=== PATIENT | male | born 1940 | race Caucasian/White ===

== ENCOUNTER 2018-02-14 13:17 | Observation (INO) | payer MEDICARE, SELFPAY ==
[2018-02-14] VITALS (13 sets, daily range): BP systolic 92–112; BP diastolic 45–63; PULSE 78–127; RESP 16–21; TEMP 35.9–36.9; O2SAT 98–100; BMI 36.3; BMI 32.8
--- NOTE | 2018-02-14 13:22 | EKG12_ITS ---
Test Reason : DIZZINESS Blood Pressure : / mmHG Vent. Rate : 106 BPM Atrial Rate : 098 BPM P-R Int : 000 ms QRS Dur : 096 ms QT Int : 360 ms P-R-T Axes : 000 -33 041 degrees QTc Int : 478 ms Atrial fibrillation Left axis deviation Abnormal ECG Confirmed by MARCO JENKINS MD ([id number]), newspaper copy editor LORENE LI ([id number]) on 02/16/2018 3:29:58 PM Referred By: ELVIS Confirmed By:MARCO JENKINS MD
--- NOTE | 2018-02-14 13:22 | CT_ITS ---
STUDY: CT BRAIN WITHOUT CONTRAST REASON FOR EXAM: Male, 77 years old. Dizziness, nausea and vomiting RADIATION DOSAGE (If Supplied By Facility): CTDIvol = ( 44.99 ) mGy, DLP = ( 796.11 ) mGycm TECHNIQUE: Transaxial CT imaging of the brain was performed without administration of intravenous contrast material. Individualized dose optimization techniques were used for this CT. COMPARISON: April 19, 2015 CT head FINDINGS: No evidence for shift of midline structures, mass effect or compression of ventricles noted. No acute intra-axial or extra-axial hemorrhage is seen. No abnormal intracranial fluid collections identified. Scattered foci of low-attenuation in the periventricular and subcortical white matter noted which are nonspecific in imaging appearance however likely related with chronic small vessel disease. Intracranial atherosclerotic vascular calcifications are seen. Mild mucosal thickening frontal sinuses. Pneumatization of the petrous apices Posttreatment changes in the right globe present which were not seen on previous exam IMPRESSION: Stable CT examination of the head since prior study. Chronic small vessel disease. Electronically Signed: Marcel Tapia, at 14:16 EDT Tel , Service support , CT/Brain/Head without Contrast
--- NOTE | 2018-02-14 13:22 | RAD_ITS ---
STUDY: X-RAY CHEST REASON FOR EXAM: Male, 77 years old. Cough and dizziness with vomiting TECHNIQUE: Single view of the chest was obtained COMPARISON: November 07, 2014 FINDINGS: Right size is slightly prominent. Tortuosity of the aortic knob. Increased reticular markings in the lung bases. Subsegmental atelectasis in the lung bases also seen. Degenerative changes in the thoracic spine in the glenohumeral joints. No pneumothorax or consolidative process. No pleural effusion. IMPRESSION: Redemonstration of increased reticular markings in the lung bases may relate with interstitial lung disease. Bibasilar subsegmental atelectasis. No pneumothorax or consolidation. Please consider high-resolution chest CT for better assessment interstitial lung disease Electronically Signed: Marcel Tapia, at 14:18 EDT Tel , Service support , RAD/Chest 1 View
--- NOTE | 2018-02-14 13:24 | ED.VISSUMM ---
- ER Visit Summary Date of Service: 02/14/18 Chief Complaint: Dizziness, headache History of Present Illness: The patient is a 77 M medical history significant for prior pulmonary embolus who is on Xarelto and diabetes non-insulin dependent presents to the emergency department with rather sudden onset dizziness, nausea, and vomiting. Patient also complaint of a mild headache. 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 He states that he went to pound a nail into the gait to keep it closed. He states suddenly, he began to feel as if he was going to pass out. He states that he got very nauseated and has had 2 episodes of vomiting. He states he is also had a rather progressive headache. At the same time, he began to have some numbness in his right leg. The patient denies any change in vision. 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 He states he has never really felt like this before. He denies any history of prior stroke. He states he woke this morning, he was in his normal state of health. Physical Examination: NIH equals 1 for right leg numbness. There is no focal weakness that is identified. Patient does have normal extraocular motion of the left eye. 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 Heart is regular tachycardia. Lungs are diminished with an extra Tory wheeze. Abdomen soft, nontender, nondistended. Extremities show trace edema. Test Results: [] Emergency Department Course and Treatment: The patient presents with headache, lightheadedness, near syncope, and leg numbness. With his headache and history of anticoagulant use, I did want to rule out intracerebral hemorrhage. The patient was sent for stat CT. There is no evidence of acute intracerebral hemorrhage. When CT, the patient had one episode of vomiting. This completely resolved his symptoms. He had no progression of his leg numbness. In fact, he had total resolution. The patient did have an EKG which shows atrial fibrillation. He denies any history of this prior. He is fully anticoagulated, but in light of his neurologic symptoms and focal numbness I do feel that he will require further workup. This all may be a vertiginous type presentation with his dizziness, vomiting, and near syncope, but he does have a new dysrhythmia with focal neurologic complaints. The patient was discussed with the hospitalist will be admitted. Treatment Plan: [] Disposition: Admission Impression: 1. New onset atrial fibrillation 2. Right leg paresthesia-resolved This note was generated with [employer] dictation software. It may contain incorrect words, spelling, and punctuation that were not noted in review of the chart prior to signing ED Disposition - Plan for ED Patient: Chief Complaint: Dizziness Referrals: NOT,DEFINED [NON-STAFF] -
[2018-02-14] MEDS: 0.9% Normal Saline 1,000 ML 100 ML IV (13:35)
[2018-02-14 13:36] LABS: Absolute Neutrophil Count 8.3 X10^3/uL (2.0-7.7); Basophil# 0.03 X10^3/uL; Basophil% 0.3 % (0-1); Eosinophil# 0.17 X10^3/uL; Eosinophils% 1.5 % (0-5); Hematocrit 42.4 % (40-54); Hemoglobin 13.7 g/dl (13.0-16.5); Lymphocyte % 18.4 % (19-41); Mean Corp Hgb Conc 32.3 g/gl (32-36); Mean Corpuscular Hgb 28.5 pg (27.0-32.0); Mean Corpuscular Volume 88.3 fL (80-94); Mean Platelet Vol. 10.5 fl (6.2-12.0); Monocyte# 0.83 X10^3/uL; Monocyte% 7.3 % (0-10); Neutrophil # 8.29 X10^3/uL (2.7-7.7); Neutrophil % 72.4 % (47-70); POSITIVE COUNT NO; POSITIVE DIFFERENTIAL NO; POSITIVE MORPHOLOGY NO; Platelet Count 194 K/mm3 (150-450); RBC Distribution Width CV 13.6 % (11.6-14.6); White Blood Count 11.4 K/mm3 (4.4-11.0)
[2018-02-14 13:39] LABS: International Normalized Ratio 1.5; Prothrombin Time (Protime)PT. 17.9 SECONDS (11.7-14.9)
[2018-02-14 13:40] LABS: Partial Thromboplast Time 30.9 Seconds (24.1-36.2)
--- NOTE | 2018-02-14 13:40 | ED.RN ---
Called pharmacy, working on zofran. Kristi called from CT, pt vomitied all over CT.
[2018-02-14 13:51] LABS: AST(SGOT) 15 U/L (15-37); Alanine Aminotransfer ALT/SGPT 13 U/L (16-61); Albumin, Serum 3.9 g/dL (3.2-5.0); Alkaline Phosphatase 62 U/L (45-117); Anion Gap 12 (5-15); BUN 21 mg/dL (7-18); BUN/Creat Ratio 12.8 RATIO (10-20); Bilirubin, Direct 0.24 mg/dL (0.00-0.30); Calcium,Total 8.8 mg/dL (8.5-10.1); Chloride 104 mmol/L (98-107); Creatinine, Serum 1.64 mg/dL (0.70-1.30); EST Glomerular Filtration Rate 44 mL/min (>60); Est Glom Filt Rate - Afr Amer 53 mL/min (>60); Estimated Creatinine Clearance 43.31 ml/min; Globulin 3.3 g/dL (2.2-4.2); Glucose 175 mg/dL (74-106); Potassium 4.1 mmol/L (3.5-5.1); Protein, Total 7.2 g/dL (6.4-8.2); Sodium Level 141 mmol/L (136-145)
[2018-02-14] MEDS: Ondansetron 4 MG/2 ML Vial IV (13:55)
--- NOTE | 2018-02-14 15:04 | PCM.HP.STD ---
Problem List (1) Right leg weakness Status: Acute (2) Afib Status: Acute (3) CKD (chronic kidney disease) Status: Chronic (4) Pulmonary emboli Status: Chronic (5) Chronic acquired lymphedema Status: Chronic (6) Dyslipidemia Status: Chronic (7) Morbid obesity with BMI of 40.0-44.9, adult Status: Chronic (8) Type 2 diabetes mellitus Status: Chronic (9) Benign prostatic hypertrophy Status: Chronic History of Present Illness Date of Admission: 02/14/18 Chief Complaint: nausea. vomint. right leg weakness. 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 Also experienced some right leg numbness the numbness was below his knee into his ankle. Patient never experienced anything like this before. Patient presented to the hospital and while at the hospital was having just vomiting. Patient's dizziness, nausea and numbness have resolved. Patient has not had any symptoms like this before. Evaluation in the emergency room patient was noted to be in atrial fibrillation. Patient has never had atrial fibrillation before. Patient denies any chest pain or palpitations. Patient received saline as well as Zofran in the emergency room. [] Past Medical History Past Medical History (Chronic Problems): Chronic Problems CKD (chronic kidney disease) (Chronic) Pulmonary emboli (Chronic) Chronic acquired lymphedema (Chronic) Dyslipidemia (Chronic) Morbid obesity with BMI of 40.0-44.9, adult (Chronic) Type 2 diabetes mellitus (Chronic) Benign prostatic hypertrophy (Chronic) Allergies No Known Allergies Allergy (Verified 11/07/14 10:51) Home Medications: Ambulatory Orders Medication Instructions Recorded Finasteride [Proscar] 5 mg PO QHS 10/17/14 Lisinopril [Zestril] 10 mg PO DAILY 10/17/14 Saxagliptin Hydrochloride [Onglyza] 5 mg PO DAILY 10/17/14 Simvastatin [Zocor] 10 mg PO QHS 10/17/14 Tamsulosin HCl [Flomax] 0.4 mg PO QHS 10/17/14 Rivaroxaban [Xarelto] 20 mg PO DAILY 30 Days tablet 11/08/14 Furosemide [Lasix] 20 mg PO DAILY 04/19/15 Sertraline HCl [Zoloft] 50 mg PO DAILY 04/19/15 Metformin HCl [Glucophage] 500 mg PO BIDCM #1 tablet 04/20/15 Metoprolol Tartrate [Lopressor 12.5 mg PO BID #30 tablet 04/20/15 (beta carlitos)] [place]-3 Fatty Acids/Fish Oil 50,000 each PO QWEEK 02/14/18 [[place] 3 Fish Oil Softgel] Surgical History: total hip arthroplasty, - Psychiatric History: No pertinent psych hx Lives: Spouse/ Significant Other Smoking Status: Never smoker Tobacco Use: Non-smoker Alcohol: None Drugs: None - *Family History Paternal History Items: Heart Disease Review of Systems Constitutional: Denies: Chills, Fever, Weight Change Eyes: Reports: - - Has a false eye on his right.. Denies: Blurred vision, Double vision HEENT: Denies: Head Aches, Sinus Congestion, Sinus Drainage Cardiovascular: Reports: Edema - Chronic but actually improved from baseline.. Denies: Chest Pain, Palpitations Respiratory: Denies: Cough, Shortness of breath at rest, Sputum production Gastrointestinal: Reports: Nausea, Vomiting. Denies: Abdominal Pain, Diarrhea Genitourinary: Denies: Dysuria Musculoskeletal: Denies: Joint Pain, Joint Tenderness Skin: Reports: - - Chronic venous stasis dermatitis. Neurological: Reports: Numbness - Right leg, - - Dizziness. Psychiatric: Denies: Anxiety, Depression Hematologic/ Lymphatic: Reports: Hx of blood clot. Denies: Easy Bruising, Easy Bleeding VTE Information - Inpt Only VTE Present on Admission: Yes Patient Problems: Active and Suspected Problems Right leg weakness (Acute) Afib (Acute) - Physical Exam General: Alert, Cooperative, No apparent distress HEENT: Atraumatic, EOMI, Normocephalic, - - Pupil reactive to light on the left. Patient has a false eye and his weight. Oral: Moist Mucosa, No Gingival or Mucosal Lesions/ Ulcerations, - - poor dentition only for front teeth on the bottom. Neck: Negative Carotid Bruits, No Nodes, Thyroid Normal Size and Texture Lungs: Clear to auscultation, Normal air movement, No rhonchi, No wheeze Cardiovascular: Regular rate, Regular Rhythm, Normal S1, Normal S2 Abdomen: Bowel Sounds Present, Soft, Non Tender, Non-Distended, No Hepato-splenomegaly Extremities: No edema, No Calf Tenderness Skin: - - Venous stasis dermatitis of lower extremities. Musculoskeletal: No Tenderness to Palpation of Joints or Extremities, No Muscle Wasting Lymphatic: No Cervical, Supraclavicular, or Inguinal Adenopathy, Cervical Adenopathy Neurological: Cranial nerves II-XII grossly intact, Neuro grossly intact, Motor Exam 5/5 strength throughout, Sensory exam intact to light touch and pain, Coordination normal Psych/Mental Status: Normal Affect, Appropriate Vital Signs Temp Pulse Resp BP Pulse Ox 35.9 C L 95 18 101/62 98 02/14/18 14:33 02/14/18 15:02 02/14/18 15:02 02/14/18 15:02 02/14/18 15:02 Oxygen Flow Rate (L/min) 2 Oxygen Delivery Method Nasal Cannula Weight: 125 kg Body Mass Index (BMI) 36.3 Laboratory Tests Past 24 Hrs 02/14/18 02/14/18 02/14/18 13:23 13:23 13:23 WBC 11.4 H RBC 4.80 Hgb 13.7 Hct 42.4 MCV 88.3 MCH 28.5 MCHC 32.3 RDW 13.6 RDW Differential 44.0 H Plt Count 194 MPV 10.5 Immature Gran % (Auto) 0.100 Neut % (Auto) 72.4 H Lymph % (Auto) 18.4 L [place] % (Auto) 7.3 Eos % (Auto) 1.5 Baso % (Auto) 0.3 Absolute Neuts (auto) 8.3 H Absolute Lymphs (auto) 2.10 Total Counted Not Reportable PT 17.9 H INR 1.5 APTT 30.9 Sodium 141 Potassium 4.1 Chloride 104 Carbon Dioxide 25.0 Anion Gap 12 BUN 21 H Creatinine 1.64 H Estim Creat Clear Calc 43.31 Est GFR (MDRD) Af Amer 53 L Est GFR (MDRD) Non-Af 44 L BUN/Creatinine Ratio 12.8 Glucose 175 H Calcium 8.8 Total Bilirubin 0.80 Direct Bilirubin 0.24 AST 15 ALT 13 L Alkaline Phosphatase 62 Troponin I < 0.02 Total Protein 7.2 Albumin 3.9 Globulin 3.3 Clinical Impression(s) from Imaging Studies Brain CT 02/14/18 13:22 Chest X-Ray 02/14/18 13:22 EKG reviewed and showed atrial fibrillation without any acute changes. No prior EKGs available to be compared to. Assessment/Plan Active and Suspected Problems Right leg weakness (Acute) Afib (Acute) 1. Right leg numbness Concern is for a TIA given the patient's new diagnosis of atrial fibrillation. Though patient has been compliant with his Xarelto so theoretically that should have significantly reduce that risk. Continue with the patient Xarelto. Continue with aspirin, patient did take aspirin when this occurred. Patient does not take aspirin routinely. Check fasting lipid panel, MRI of the brain, MRA of the head neck, echocardiogram. Physical and Occupational Therapy. Neurology consultation. 2. Atrial fibrillation New diagnosis but unclear time of onset. 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 It is unclear at this time if the patient has had a Xarelto failure with potential TIA or stroke. Therefore, I would not change anything in regards to that therapy. 4. Chronic kidney disease stage III Continue to monitor. Avoid nephrotoxic agents. Patient on follow-up with nephrology as outpatient. Case discussed with the family at bedside. Code Visit Inpatient E&M: 35575 Init Hosp L3
--- NOTE | 2018-02-14 15:14 | HP.PCM_ITS ---
Problem List (1) Right leg weakness Status: Acute (2) Afib Status: Acute (3) CKD (chronic kidney disease) Status: Chronic (4) Pulmonary emboli Status: Chronic (5) Chronic acquired lymphedema Status: Chronic (6) Dyslipidemia Status: Chronic (7) Morbid obesity with BMI of 40.0-44.9, adult Status: Chronic (8) Type 2 diabetes mellitus Status: Chronic (9) Benign prostatic hypertrophy Status: Chronic History of Present Illness Date of Admission: 02/14/18 Chief Complaint: nausea. vomint. right leg weakness. 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 Also experienced some right leg numbness the numbness was below his knee into his ankle. Patient never experienced anything like this before. Patient presented to the hospital and while at the hospital was having just vomiting. Patient's dizziness, nausea and numbness have resolved. Patient has not had any symptoms like this before. Evaluation in the emergency room patient was noted to be in atrial fibrillation. Patient has never had atrial fibrillation before. Patient denies any chest pain or palpitations. Patient received saline as well as Zofran in the emergency room. [] Past Medical History Past Medical History (Chronic Problems): Chronic Problems CKD (chronic kidney disease) (Chronic) Pulmonary emboli (Chronic) Chronic acquired lymphedema (Chronic) Dyslipidemia (Chronic) Morbid obesity with BMI of 40.0-44.9, adult (Chronic) Type 2 diabetes mellitus (Chronic) Benign prostatic hypertrophy (Chronic) Allergies No Known Allergies Allergy (Verified 11/07/14 10:51) Home Medications: Ambulatory Orders Medication Instructions Recorded Finasteride [Proscar] 5 mg PO QHS 10/17/14 Lisinopril [Zestril] 10 mg PO DAILY 10/17/14 Saxagliptin Hydrochloride [Onglyza] 5 mg PO DAILY 10/17/14 Simvastatin [Zocor] 10 mg PO QHS 10/17/14 Tamsulosin HCl [Flomax] 0.4 mg PO QHS 10/17/14 Rivaroxaban [Xarelto] 20 mg PO DAILY 30 Days tablet 11/08/14 Furosemide [Lasix] 20 mg PO DAILY 04/19/15 Sertraline HCl [Zoloft] 50 mg PO DAILY 04/19/15 Metformin HCl [Glucophage] 500 mg PO BIDCM #1 tablet 04/20/15 Metoprolol Tartrate [Lopressor 12.5 mg PO BID #30 tablet 04/20/15 (beta carlitos)] [place]-3 Fatty Acids/Fish Oil 50,000 each PO QWEEK 02/14/18 [[place] 3 Fish Oil Softgel] Surgical History: total hip arthroplasty, - Psychiatric History: No pertinent psych hx Lives: Spouse/ Significant Other Smoking Status: Never smoker Tobacco Use: Non-smoker Alcohol: None Drugs: None - *Family History Paternal History Items: Heart Disease Review of Systems Constitutional: Denies: Chills, Fever, Weight Change Eyes: Reports: - - Has a false eye on his right.. Denies: Blurred vision, Double vision HEENT: Denies: Head Aches, Sinus Congestion, Sinus Drainage Cardiovascular: Reports: Edema - Chronic but actually improved from baseline.. Denies: Chest Pain, Palpitations Respiratory: Denies: Cough, Shortness of breath at rest, Sputum production Gastrointestinal: Reports: Nausea, Vomiting. Denies: Abdominal Pain, Diarrhea Genitourinary: Denies: Dysuria Musculoskeletal: Denies: Joint Pain, Joint Tenderness Skin: Reports: - - Chronic venous stasis dermatitis. Neurological: Reports: Numbness - Right leg, - - Dizziness. Psychiatric: Denies: Anxiety, Depression Hematologic/ Lymphatic: Reports: Hx of blood clot. Denies: Easy Bruising, Easy Bleeding VTE Information - Inpt Only VTE Present on Admission: Yes Patient Problems: Active and Suspected Problems Right leg weakness (Acute) Afib (Acute) - Physical Exam General: Alert, Cooperative, No apparent distress HEENT: Atraumatic, EOMI, Normocephalic, - - Pupil reactive to light on the left. Patient has a false eye and his weight. Oral: Moist Mucosa, No Gingival or Mucosal Lesions/ Ulcerations, - - poor dentition only for front teeth on the bottom. Neck: Negative Carotid Bruits, No Nodes, Thyroid Normal Size and Texture Lungs: Clear to auscultation, Normal air movement, No rhonchi, No wheeze Cardiovascular: Regular rate, Regular Rhythm, Normal S1, Normal S2 Abdomen: Bowel Sounds Present, Soft, Non Tender, Non-Distended, No Hepato- splenomegaly Extremities: No edema, No Calf Tenderness Skin: - - Venous stasis dermatitis of lower extremities. Musculoskeletal: No Tenderness to Palpation of Joints or Extremities, No Muscle Wasting Lymphatic: No Cervical, Supraclavicular, or Inguinal Adenopathy, Cervical Adenopathy Neurological: Cranial nerves II-XII grossly intact, Neuro grossly intact, Motor Exam 5/5 strength throughout, Sensory exam intact to light touch and pain, Coordination normal Psych/Mental Status: Normal Affect, Appropriate Vital Signs Temp Pulse Resp BP Pulse Ox 35.9 C L 95 18 101/62 98 02/14/18 14:33 02/14/18 15:02 02/14/18 15:02 02/14/18 15:02 02/14/18 15:02 Oxygen Flow Rate (L/min) 2 Oxygen Delivery Method Nasal Cannula Weight: 125 kg Body Mass Index (BMI) 36.3 Laboratory Tests Past 24 Hrs 02/14/18 02/14/18 02/14/18 13:23 13:23 13:23 WBC 11.4 H RBC 4.80 Hgb 13.7 Hct 42.4 MCV 88.3 MCH 28.5 MCHC 32.3 RDW 13.6 RDW Differential 44.0 H Plt Count 194 MPV 10.5 Immature Gran % (Auto) 0.100 Neut % (Auto) 72.4 H Lymph % (Auto) 18.4 L [place] % (Auto) 7.3 Eos % (Auto) 1.5 Baso % (Auto) 0.3 Absolute Neuts (auto) 8.3 H Absolute Lymphs (auto) 2.10 Total Counted Not Reportable PT 17.9 H INR 1.5 APTT 30.9 Sodium 141 Potassium 4.1 Chloride 104 Carbon Dioxide 25.0 Anion Gap 12 BUN 21 H Creatinine 1.64 H Estim Creat Clear Calc 43.31 Est GFR (MDRD) Af Amer 53 L Est GFR (MDRD) Non-Af 44 L BUN/Creatinine Ratio 12.8 Glucose 175 H Calcium 8.8 Total Bilirubin 0.80 Direct Bilirubin 0.24 AST 15 ALT 13 L Alkaline Phosphatase 62 Troponin I < 0.02 Total Protein 7.2 Albumin 3.9 Globulin 3.3 Clinical Impression(s) from Imaging Studies Brain CT 02/14/18 13:22 Chest X-Ray 02/14/18 13:22 EKG reviewed and showed atrial fibrillation without any acute changes. No prior EKGs available to be compared to. Assessment/Plan Active and Suspected Problems Right leg weakness (Acute) Afib (Acute) 1. Right leg numbness * Concern is for a TIA given the patient's new diagnosis of atrial fibrillation. Though patient has been compliant with his Xarelto so theoretically that should have significantly reduce that risk. * Continue with the patient Xarelto. Continue with aspirin, patient did take aspirin when this occurred. Patient does not take aspirin routinely. * Check fasting lipid panel, MRI of the brain, MRA of the head neck, echocardiogram. Physical and Occupational Therapy. Neurology consultation. 2. Atrial fibrillation * New diagnosis but unclear time of onset. * Check an echocardiogram * Patient is already on Xarelto 3. Venous thromboembolic disease * Patient has had numerous PEs and DVTs * Patient requires lifelong anticoagulation. * It is unclear at this time if the patient has had a Xarelto failure with potential TIA or stroke. Therefore, I would not change anything in regards to that therapy. 4. Chronic kidney disease stage III * Continue to monitor. Avoid nephrotoxic agents. * Patient on follow-up with nephrology as outpatient. Case discussed with the family at bedside. Code Visit Inpatient E&M: 52613 Init Hosp L3
--- NOTE | 2018-02-14 16:28 | ECHOD_ITS ---
Reason For Study: TIA/CVA Left Ventricle Normal LV size. Moderate concentric left ventricular hypertrophy. Left ventricular systolic function is normal. The estimated ejection fraction is 55 %. Unable to assess diastolic dysfunction. No regional wall motion abnormalities noted. Right Ventricle Normal RV size. Normal systolic function. Atria The left atrium is mildly enlarged. Normal right atrium. Mitral Valve Normal mitral valve. Tricuspid Valve Normal tricuspid valve. Mild tricuspid valve insufficiency. Aortic Valve Normal aortic valve. Pulmonic Valve Normal pulmonic valve. Great Vessels Normal aortic root. The pulmonary artery is normal size. Normal inferior vena cava. Pericardium/Pleural No pericardial effusion. MMode/2D Measurements & Calculations LVIDd: 5.9 cm IVSd: 1.3 cm Ao root diam: 3.9 cm LVIDs: 4.2 cm LVPWd: 1.4 cm RVDd: 4.1 cm FS: 28.0 % LAV(MOD-bp): 88.4 ml EDV(MOD-sp4): 165.5 ml EDV(MOD-sp2): 97.4 ml LAV(MOD-bp) Indexed: 36.2 ml/m2 ESV(MOD-sp4): 83.5 ml EF(MOD-sp2): 51.9 % LAV(MOD-sp2): 105.9 ml EF(MOD-sp4): 49.5 % LAV(MOD-sp4): 62.6 ml SV(MOD-sp4): 81.9 ml SV(MOD-sp2): 50.5 ml LA A4 area: 20.7 cm2 RA A4 area: 16.6 cm2 Doppler Measurements & Calculations MV E max ado: 113.1 cm/sec Ao V2 max: 121.3 cm/sec LV V1 max: 81.8 cm/sec Ao max P.9 mmHg LV V1 max P.7 mmHg TR max dao: 202.6 cm/sec TR max P.4 mmHg Interpretation Summary Normal LV size. Moderate concentric left ventricular hypertrophy. Left ventricular systolic function is normal. The estimated ejection fraction is 55 %. Mild tricuspid valve insufficiency. Unable to assess diastolic dysfunction. Contrast injection was performed. Ordering Physician: Jean Platt Referring Physician: FELICITAS GAMBINO Performed By: Alexandrea Parmar, GEM, RVT
[2018-02-14] MEDS: 0.9% NaCl Peripheral Flush Adult/Peds IV (17:53)
[2018-02-14] MEDS: 0.9% Normal Saline 1,000 ML 150 ML IV (17:53)
[2018-02-14] MEDS: Rivaroxaban 20 MG Tablet PO (17:54)
[2018-02-14] MEDS: Tamsulosin HCl 0.4 MG Capsule PO (22:11)
[2018-02-14] MEDS: Metoprolol Tartrate 25 MG Tablet 12.5 MG PO (22:11)
[2018-02-14] MEDS: Atorvastatin Calcium 10 MG Tablet 5 MG PO (22:11)
[2018-02-14 23:11] LABS: Bedside Glucose 133 mg/dL (70-110)
[2018-02-15] VITALS (11 sets, daily range): BP systolic 104–115; BP diastolic 56–69; PULSE 74–89; RESP 12–20; TEMP 36.8–37; O2SAT 97–100; BMI 32.8
[2018-02-15 02:31] LABS: Bedside Glucose 111 mg/dL (70-110)
--- NOTE | 2018-02-15 05:55 | MRI_ITS ---
STUDY: MRI BRAIN WITHOUT CONTRAST REASON FOR EXAM: Male, 78 years old. Right leg weakness TECHNIQUE: Standardized multiplanar fat and water weighted pulse sequences were obtained. COMPARISON: CT of the brain on February 14, 2018 FINDINGS: Mild atrophy and periventricular white matter ischemic changes. There is an old lacunar infarct in the right basal ganglia. Chronic ischemic changes within the cerebellar hemispheres. Normal bilateral basal ganglia. Normal thalami. There is no extra-axial fluid accumulation. Normal flow voids within the major intracranial circulation suggesting patency by spin echo criteria. Normal sella turcica, pituitary gland, infundibular stalk, optic chiasm and hypothalamus. Normal tectal plate and pineal gland. Normal midbrain, tony and medulla. Normal basal cisterns. Normal bilateral temporal bones. Normal bilateral internal auditory canals. There is rounded low signal intensity within the right optic globe most likely representing prosthesis. Clinical correlation is recommended in this regard. There is mild mucosal thickening within the frontal and ethmoid sinuses. There is mucous retention cyst in the left maxillary sinus.. Normal calvarium and skull base. Normal visualized soft tissue structures. Normal visualized upper cervical spine. MRI/Brain without Contrast IMPRESSION: Mild periventricular white matter ischemic changes in association with old lacunar infarct but no evidence for acute infarct at this time Electronically Signed: David Nicholson MD at 16:20 EDT , Service support ,
[2018-02-15 06:47] LABS: Anion Gap 6 (5-15); BUN 23 mg/dL (7-18); Chloride 109 mmol/L (98-107); Cholesterol 86 mg/dL (200); Creatinine, Serum 1.53 mg/dL (0.70-1.30); EST Glomerular Filtration Rate 47 mL/min (>60); Est Glom Filt Rate - Afr Amer 57 mL/min (>60); Estimated Creatinine Clearance 49.64 ml/min; Glucose 98 mg/dL (74-106); High Density Lipoprotein 35 mg/dL; Potassium 3.8 mmol/L (3.5-5.1); Sodium Level 143 mmol/L (136-145); Triglycerides 51 mg/dL; Very Low Density Lipoprotein 10 mg/dL (5-40)
[2018-02-15 07:01] LABS: Bedside Glucose 93 mg/dL (70-110)
--- NOTE | 2018-02-15 07:24 | MRI_ITS ---
STUDY: MRA NECK WITHOUT CONTRAST REASON FOR EXAM: Male, 78 years old. Right leg weakness TECHNIQUE: Source images were obtained, MIPs were performed. The study was performed unenhanced. COMPARISON: None. FINDINGS: RIGHT CAROTID ARTERIES: Normal right common carotid artery (CCA). There is mild to moderate plaquing in the common carotid bulb and origin of the right internal carotid (ICA) artery without a hemodynamically significant stenosis. Normal visualized cervical portion of the right internal carotid artery. Normal origin of the right external carotid artery (ECA). LEFT CAROTID ARTERIES: Normal left common carotid artery (CCA). There is mild to moderate plaquing in the common carotid bulb and origin of the left internal carotid (ICA) artery without a hemodynamically significant stenosis. Normal visualized cervical portion of the left internal carotid artery. Normal origin of the left external carotid artery (ECA). VERTEBRAL ARTERIES: Normal antegrade flow within the bilateral vertebral artery without a hemodynamically significant stenosis. MRI/MRA Neck without Contrast IMPRESSION: Moderate atherosclerotic changes. No evidence for hemodynamically significant stenosis utilizing NASCET criteria Electronically Signed: David Nicholson MD at 16:40 EDT , Service support ,
--- NOTE | 2018-02-15 07:24 | MRI_ITS ---
STUDY: MRA OF THE HEAD WITHOUT CONTRAST REASON FOR EXAM: Male, 78 years old. Right leg weakness TECHNIQUE: 3-D [id number] (TOF) imaging was performed with MIPs. The study was performed unenhanced. COMPARISON: None. FINDINGS: Normal bilateral petrous carotid arteries. Normal right cavernous carotid artery with a normal supraclinoid bifurcation. Normal left cavernous carotid artery with a normal supraclinoid bifurcation. Normal right A1 segments of the anterior cerebral artery. Normal left A1 segments of the anterior cerebral artery. Anterior communicating artery not visualized consistent with normal developmental variant Normal bilateral A2 segments of the anterior cerebral arteries. Normal right M1 and M2 segments of the middle cerebral arteries, with a normal M1 bifurcation. Normal left M1 and M2 segments of the middle cerebral arteries, with a normal M1 bifurcation. Posterior communicating arteries aren't visualized consistent with normal developmental variant Normal bilateral vertebral arteries. Normal basilar artery with a normal basilar bifurcation. The visualized bilateral superior cerebellar (SCA) arteries are normal. Normal bilateral P1, P2 and visualized P3 segments of the posterior cerebral arteries. There is no demonstrated aneurysm of the [place] of [place]. There is no major vessel occlusion or hemodynamically significant stenosis. There is no demonstrated abnormality of the visualized brain. MRI/MRA Head ONLY without Contrast IMPRESSION: No evidence for significant atherosclerotic disease Electronically Signed: David Nicholson MD at 16:22 EDT , Service support ,
[2018-02-15] MEDS: Metoprolol Tartrate 25 MG Tablet 12.5 MG PO (07:59)
[2018-02-15] MEDS: Aspirin 81 MG TAB.CHEW PO (07:59)
[2018-02-15] MEDS: Sertraline 50 MG Tablet PO (07:59)
--- NOTE | 2018-02-15 10:23 | PCM.CONS.GEN ---
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 feels normal now. bp has been low. new afib noted in ER. already takes xarelto for DVT/PE lifelong, reports good compliance. 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 Also experienced some right leg numbness the numbness was below his knee into his ankle. Patient never experienced anything like this before. Patient presented to the hospital and while at the hospital was having just vomiting. Patient's dizziness, nausea and numbness have resolved. Patient has not had any symptoms like this before. Evaluation in the emergency room patient was noted to be in atrial fibrillation. Patient has never had atrial fibrillation before. Patient denies any chest pain or palpitations. Patient received saline as well as Zofran in the emergency room. Past Medical History Past Medical History (Chronic Problems): Chronic Problems CKD (chronic kidney disease) (Chronic) Pulmonary emboli (Chronic) Chronic acquired lymphedema (Chronic) Dyslipidemia (Chronic) Morbid obesity with BMI of 40.0-44.9, adult (Chronic) Type 2 diabetes mellitus (Chronic) Benign prostatic hypertrophy (Chronic) Allergies polio vaccine Adverse Reaction (Uncoded 02/14/18 16:46) Other Home Medications: Ambulatory Orders Medication Instructions Recorded Finasteride [Proscar] 5 mg PO QHS 10/17/14 Lisinopril [Zestril] 10 mg PO DAILY 10/17/14 Simvastatin [Zocor] 10 mg PO QHS 10/17/14 Tamsulosin HCl [Flomax] 0.4 mg PO QHS 10/17/14 Rivaroxaban [Xarelto] 20 mg PO DAILY 30 Days tablet 11/08/14 Furosemide [Lasix] 10 mg PO BREAKFAST 04/19/15 Sertraline HCl [Zoloft] 50 mg PO DAILY 04/19/15 Metformin HCl [Glucophage] 500 mg PO BIDCM #1 tablet 04/20/15 Metoprolol Tartrate [Lopressor 12.5 mg PO BID #30 tablet 06/26/15 (beta carlitos)] Cytra-K Oral 2 t PO BID 02/14/18 [place]-3 Fatty Acids/Fish Oil 50,000 each PO SA 02/14/18 [[place] 3 Fish Oil Softgel] Saxagliptin HCl [Onglyza] 5 mg PO BREAKFAST 02/14/18 Surgical History: total hip arthroplasty, - Psychiatric History: No pertinent psych hx Lives: Spouse/ Significant Other Smoking Status: Never smoker Tobacco Use: Non-smoker Alcohol: None Drugs: None - *Family History Paternal History Items: Heart Disease Review of Systems Constitutional: Denies: Chills, Fever, Weight Change HEENT: Denies: Head Aches, Sinus Congestion, Sinus Drainage Cardiovascular: Denies: Chest Pain, Palpitations Respiratory: Denies: Cough, Shortness of breath at rest, Sputum production Gastrointestinal: Denies: Abdominal Pain, Nausea, Vomiting Genitourinary: Denies: Dysuria Musculoskeletal: Denies: Joint Pain, Joint Tenderness Skin: Denies: Rash, Wounds Neurological: Denies: Numbness, Tingling, Focal weakness Psychiatric: Denies: Anxiety, Depression, Homicidal Ideations, Suicidal Ideations Hematologic/ Lymphatic: Denies: Easy Bruising, Easy Bleeding Patient Problems: Active and Suspected Problems Right leg weakness (Acute) Afib (Acute) - Physical Exam General: Alert, Oriented x3, Cooperative HEENT: Atraumatic, PERRLA, EOMI, Normocephalic Neck: Supple, No JVD, Negative Carotid Bruits Lungs: Clear to auscultation, Normal air movement Cardiovascular: Regular rate, No murmurs Abdomen: Bowel Sounds Present, Soft, Non Tender Extremities: No edema, Capillary Refill Less than 3 Seconds Skin: No rashes, No breakdown Musculoskeletal: No Tenderness to Palpation of Joints or Extremities Neurological: Cranial nerves II-XII grossly intact Psych/Mental Status: Normal Affect, Appropriate Vital Signs Temp Pulse Resp BP Pulse Ox 36.8 C 77 12 115/67 99 02/15/18 07:57 02/15/18 07:59 02/15/18 07:57 02/15/18 07:57 02/15/18 07:57 Oxygen Flow Rate (L/min) 1 Oxygen Delivery Method Nasal Cannula Weight: 122.4 kg Body Mass Index (BMI) 32.8 Intake and Output for Last 24 Hours 02/13/18 02/14/18 02/15/18 23:59 23:59 23:59 Intake Total 1120 / 1120 1362 / 1362 Balance 1120 / 1120 1362 / 1362 Laboratory Tests Past 24 Hrs 02/14/18 02/14/18 02/15/18 16:40 19:35 06:00 Sodium 143 Potassium 3.8 Chloride 109 H Carbon Dioxide 28.0 Anion Gap 6 BUN 23 H Creatinine 1.53 H Estim Creat Clear Calc 49.64 Est GFR (MDRD) Af Amer 57 L Est GFR (MDRD) Non-Af 47 L BUN/Creatinine Ratio 15.0 Glucose 98 Calcium 8.0 L Troponin I < 0.02 < 0.02 Triglycerides 51 Cholesterol 86 LDL Cholesterol 41 VLDL Cholesterol 10 HDL Cholesterol 35 L POC Glucose 02/15/18 02/15/18 02/14/18 06:50 02:25 22:09 POC Glucose 93 111 H 133 H Assessment/Plan Active and Suspected Problems Right leg weakness (Acute) Afib (Acute) presyncope, low bp suspect new afib playing a role, sx now resolved await mri ok to dc if mri neg ? reduce metoprolol dose if remains hypotensive
[2018-02-15 11:30] LABS: Bedside Glucose 151 mg/dL (70-110)
--- NOTE | 2018-02-15 14:39 | CON.PCM_ITS ---
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 He also got nauseated. He presented to the emergency room and was noted to be in atrial fibrillation with rapid ventricular response rate he was admitted cardiology was consulted for further evaluation and management. He denies any chest pain or shortness of breath or paroxysmal nocturnal dyspnea or pedal edema he has had mild dizziness and no zaria syncopal spells. He denies any paroxysmal nocturnal dyspnea or symptoms similar to when he had his pulmonary embolism. He has been compliant with his medications for anticoagulation. As part of his workup he had serial cardiac enzymes drawn which were normal and an echocardiogram performed which demonstrated overall preserved left ventricular systolic function. [] Past Medical History Allergies/Adverse Reactions: Allergies polio vaccine Adverse Reaction (Uncoded 02/14/18 16:46) Other Home Medications: Ambulatory Orders Medication Instructions Recorded Finasteride [Proscar] 5 mg PO QHS 10/17/14 Lisinopril [Zestril] 10 mg PO DAILY 10/17/14 Simvastatin [Zocor] 10 mg PO QHS 10/17/14 Tamsulosin HCl [Flomax] 0.4 mg PO QHS 10/17/14 Rivaroxaban [Xarelto] 20 mg PO DAILY 30 Days tablet 11/08/14 Furosemide [Lasix] 10 mg PO BREAKFAST 04/19/15 Sertraline HCl [Zoloft] 50 mg PO DAILY 04/19/15 Metformin HCl [Glucophage] 500 mg PO BIDCM #1 tablet 04/20/15 Metoprolol Tartrate [Lopressor 12.5 mg PO BID #30 tablet 04/20/15 (beta carlitos)] Cytra-K Oral 2 t PO BID 02/14/18 [place]-3 Fatty Acids/Fish Oil 50,000 each PO SA 02/14/18 [[place] 3 Fish Oil Softgel] Saxagliptin HCl [Onglyza] 5 mg PO BREAKFAST 02/14/18 Past Medical History (Chronic Problems): Chronic Problems CKD (chronic kidney disease) (Chronic) Pulmonary emboli (Chronic) Chronic acquired lymphedema (Chronic) Dyslipidemia (Chronic) Morbid obesity with BMI of 40.0-44.9, adult (Chronic) Type 2 diabetes mellitus (Chronic) Benign prostatic hypertrophy (Chronic) Surgical History: total hip arthroplasty, - Psychiatric History: No pertinent psych hx - *Family History Paternal History Items: Heart Disease Lives: Spouse/ Significant Other Smoking Status: Never smoker Tobacco Use: Non-smoker Alcohol: None Drugs: None Review of Systems - Review of Systems General: Reports: Weakness. Denies: Fever, Fatigue, Night Sweats Cardiovascular: Denies: Chest Discomfort, Shortness of Breath, Orthopnea, PND, Peripheral Edema, Palpitations, Lightheadedness, Dizziness, Near Syncope, Syncope Respiratory: Denies: Cough, Sputum Production, Hemoptysis Gastrointestinal: Denies: Hematemesis, Hematochezia, Melena Genitourinary: Denies: Dysuria, Hematuria Skin: Denies: Rash Subjectve: Pleasant gentleman in no apparent distress. Objective: Vital Signs Temp Pulse Resp BP Pulse Ox 98.3 F 81 20 H 109/65 98 02/15/18 11:57 02/15/18 11:57 02/15/18 11:57 02/15/18 11:57 02/15/18 11:57 Oxygen Flow Rate (L/min) 1 Oxygen Delivery Method Room Air Weight: 269 lb 13.533 oz Body Mass Index (BMI) 32.8 Intake and Output for Last 24 Hours 02/13/18 02/14/18 02/15/18 23:59 23:59 23:59 Intake Total 1120 / 1120 1842 / 1842 Output Total 875 / 875 Balance 1120 / 1120 967 / 967 General: Awake, Alert, Oriented x 3 HEENT: PERRL, EOMI, Sclera Non Icteric Neck: Supple, Good ROM, No Lymph Node Enlargement Lungs: Clear to auscultation Cardiovascular: Irregular Rhythm, Normal S1, Normal S2, No Murmurs, No Rubs, No Gallops Vascular: No Carotid Bruits, Normal Femoral Pulses, Normal Radial Pulses, Normal Dorsalis Pedal Pulse, Normal Posterior Tibial Pulses Abdomen: Bowel Sounds Present, Soft, Non Tender, No HSM, No Organomegaly Extremities: No Cyanosis, No Clubbing, No edema, Bilateral Edema +1 Neurological: No Focal Motor or Sensory Deficit 02/14/18 16:40: Troponin I < 0.02 02/14/18 19:35: Troponin I < 0.02 02/15/18 06:00: Sodium 143, Potassium 3.8, Chloride 109 H, Carbon Dioxide 28.0, Anion Gap 6, BUN 23 H, Creatinine 1.53 H, Est GFR (MDRD) Af Amer 57 L, Est GFR ( MDRD) Non-Af 47 L, BUN/Creatinine Ratio 15.0, Glucose 98, Calcium 8.0 L, Triglycerides 51, Cholesterol 86, LDL Cholesterol 41, VLDL Cholesterol 10, HDL Cholesterol 35 L Rhythm: EKG: Atrial fibrillation with rapid ventricular response rate ECHO: Stress Test: Cardiac Cath: PCI: CT Surgery: Holter monitor: EPS: PPM: CXR: Chest CT Scan: Assessment/Plan 1. Atrial fibrillation Patient presents with atrial fibrillation the duration of which is not entirely clear it is likely that this is persistent and unbeknownst to him. He does have a history of hypertension and diabetes and at his age he does have a chads score of at least 4 and I would recommend that he continue with his anticoagulation. He did have an echocardiogram performed which demonstrated preserved left ventricular ejection fraction and his ventricular response rate is controlled. I would not recommend any further workup other than a stress test which can probably be performed as an outpatient. I have discussed the above with the patient and his family they understand and agreed to proceed. Thank you for allowing me to participate in the care of your patient. Please don't hesitate to call if any issues arise
--- NOTE | 2018-02-15 15:10 | CASEMGMT ---
Face to Face with patient for initial transition planning/care coordination assessment. RN BARBARA introduced self and role at [facility], pt voices understanding and consents to assessment at this time. Pt is sitting up in bed in no distress at this time. Pt is A/Ox4 at this time and answers all questions appropriately at this time. Care providers, pharmacy, and demographics verified. See attached link. Pt voices no further concerns/needs at this time. Advised pt to ask for CM if any further questions/concerns/needs arise, voices understanding. CM to follow for any further discharge planning/needs. PLAN: [place] [facility]
--- NOTE | 2018-02-15 15:27 | PN_ITS ---
<Kamlesh Blankenship - Last Filed: 02/15/18 15:12> Patient Problems: Active and Suspected Problems Right leg weakness (Acute) Afib (Acute) Subjective: Pt currently denies, dizziness, LH, focal weakness, double vision, blurry vision , nausea, vomiting, chest pain, SOB. He is resting comfortably in bed NAD. Patient also supposedly states he has never had atrial fibrillation before sparsely nose. He does not feel any palpitations flutters racing. - Physical Exam General: Alert, Oriented x3, Cooperative HEENT: Atraumatic, PERRLA, EOMI, Normocephalic Neck: Supple, No JVD, Negative Carotid Bruits Lungs: Clear to auscultation, Normal air movement Cardiovascular: No murmurs, Irregular Rate Abdomen: Bowel Sounds Present, Soft, Non Tender Extremities: No edema, Capillary Refill Less than 3 Seconds, Edema - 1-2+ bilateral pitting edema, healing scabs present on shins. Skin: No rashes, No breakdown Musculoskeletal: No Tenderness to Palpation of Joints or Extremities Neurological: Cranial nerves II-XII grossly intact Psych/Mental Status: Normal Affect, Appropriate, Alert and oriented to time, place, person, mood and affect Vital Signs Temp Pulse Resp BP Pulse Ox 98.3 F 81 20 H 109/65 98 02/15/18 11:57 02/15/18 11:57 02/15/18 11:57 02/15/18 11:57 02/15/18 11:57 Oxygen Flow Rate (L/min) 1 Oxygen Delivery Method Room Air Weight: 122.4 kg Body Mass Index (BMI) 32.8 Intake and Output for Last 24 Hours 02/13/18 02/14/18 02/15/18 23:59 23:59 23:59 Intake Total 1120 / 1120 1842 / 1842 Output Total 875 / 875 Balance 1120 / 1120 967 / 967 Laboratory Tests Past 24 Hrs 02/14/18 02/14/18 02/15/18 16:40 19:35 06:00 Sodium 143 Potassium 3.8 Chloride 109 H Carbon Dioxide 28.0 Anion Gap 6 BUN 23 H Creatinine 1.53 H Estim Creat Clear Calc 49.64 Est GFR (MDRD) Af Amer 57 L Est GFR (MDRD) Non-Af 47 L BUN/Creatinine Ratio 15.0 Glucose 98 Calcium 8.0 L Troponin I < 0.02 < 0.02 Triglycerides 51 Cholesterol 86 LDL Cholesterol 41 VLDL Cholesterol 10 HDL Cholesterol 35 L POC Glucose 02/15/18 02/15/18 02/15/18 11:08 06:50 02:25 POC Glucose 151 H 93 111 H 02/14/18 22:09 POC Glucose 133 H Medical Necessity - Tobacco Use Smoking Status: Never smoker Tobacco Use: Non-smoker Assessment/Plan Active and Suspected Problems Right leg weakness (Acute) Afib (Acute) 1. Acute right leg weakness, numbness and nausea-neurology consulted, MRI and MRA are pending. Echocardiogram is done and demonstrates EF of 55%, normal LV size, moderate concentric LVH, LV systolic function is normal, mild TVI. Will await final MRI MRA results. Neurology concern for presyncope as he has had low blood pressure and underlying new atrial fibrillation. His lisinopril was discontinued at admission and his blood pressure has improved. His rate is controlled with Coreg. He has been chronically anticoagulated for DVTs and PEs using Xarelto and he reports good compliance with this medication. Also check orthostatic vitals today. -CT of the brain with chronic changes -Chest x-ray with chronic changes 2. New onset atrial fibrillation-continue Coreg. Rate is currently controlled however he still in atrial fibrillation. Echocardiogram is done as above. Cardiology following plans to follow-up with him as an outpatient no other changes for now. Negative troponinx3. LDL is 41. 3. Hypotension-improved with discontinuation of his lisinopril. 4. Elevated creatinine-baseline unclear. Suspect CKD stage III. Will avoid further nephrotoxins at this time. It is slightly trending down. 5. Type 2 diabetes mellitus-orals held sliding scale insulin. 6. Obesity-dietary consult 7. History of DVT PEs-continue Xarelto 8. BPH-on Proscar and Flomax DVT prophylaxis: Xarelto Discharge planning: PTOT eval's, MRI/MRA pending This patient was seen by Kamlesh Blankenship PA-C under the supervision of Doctor Javier. <Joy Javier - Last Filed: 02/15/18 16:13> - Physical Exam Vital Signs Temp Pulse Resp BP Pulse Ox 98.3 F 74 16 108/68 100 02/15/18 15:30 02/15/18 15:30 02/15/18 15:30 02/15/18 15:30 02/15/18 15:30 Oxygen Flow Rate (L/min) 1 Oxygen Delivery Method Room Air Weight: 122.4 kg Body Mass Index (BMI) 32.8 Intake and Output for Last 24 Hours 02/13/18 02/14/18 02/15/18 23:59 23:59 23:59 Intake Total 1120 / 1120 1842 / 1842 Output Total 875 / 875 Balance 1120 / 1120 967 / 967 Laboratory Tests Past 24 Hrs 02/14/18 02/14/18 02/15/18 16:40 19:35 06:00 Sodium 143 Potassium 3.8 Chloride 109 H Carbon Dioxide 28.0 Anion Gap 6 BUN 23 H Creatinine 1.53 H Estim Creat Clear Calc 49.64 Est GFR (MDRD) Af Amer 57 L Est GFR (MDRD) Non-Af 47 L BUN/Creatinine Ratio 15.0 Glucose 98 Calcium 8.0 L Troponin I < 0.02 < 0.02 Triglycerides 51 Cholesterol 86 LDL Cholesterol 41 VLDL Cholesterol 10 HDL Cholesterol 35 L POC Glucose 02/15/18 02/15/18 02/15/18 11:08 06:50 02:25 POC Glucose 151 H 93 111 H 02/14/18 22:09 POC Glucose 133 H Assessment/Plan Patient seen and examined independent Kamlesh MARCH. I agree with a interval history, physical exam and assessment and plan as documented above. Patient denies any new complaints. Right leg weakness and numbness has resolved. Denies any headaches or dizziness No history of atrial fibrillation. Telemetry shows atrial fibrillation rate control. Will consult cardiology. Appreciate neurology consult. MRI of the head and MRA of the head and neck are pending. We will possibly discharge if all the workup appears negative to follow-up with cardiology in the outpatient Code Visit Inpatient E&M: 49136 Subs Hosp L3
[2018-02-15] MEDS: Rivaroxaban 20 MG Tablet PO (16:24)
[2018-02-15 16:45] LABS: Bedside Glucose 131 mg/dL (70-110)
--- NOTE | 2018-02-15 17:18 | PCM.DC ---
- Discharge Diagnoses Current Active Problems: Current Active and Chronic Problems Right leg weakness (Acute) Afib (Acute) You will use the following diet at home:: Calorie/Carbohydrate Controlled (specify 1200, 1400, etc) - 1800 genie / day, Cardiac Your food should be the consistency of: Regular Your liquids should be the consistency of: Regular/Thin Discharge Activity: Return to Normal Activity Allergies/Adverse Reactions: Allergies polio vaccine Adverse Reaction (Uncoded 02/14/18 16:46) Other Medications to take at Discharge Finasteride [Proscar] 5 mg PO QHS 10/17/14 Simvastatin [Zocor] 10 mg PO QHS 10/17/14 Tamsulosin HCl [Flomax] 0.4 mg PO QHS 10/17/14 Rivaroxaban [Xarelto] 20 mg PO DAILY 30 Days tablet 11/08/14 Furosemide [Lasix] 10 mg PO BREAKFAST 04/19/15 Sertraline HCl [Zoloft] 50 mg PO DAILY 04/19/15 Metformin HCl [Glucophage] 500 mg PO BIDCM #1 tablet 04/20/15 Metoprolol Tartrate [Lopressor (beta carlitos)] 12.5 mg PO BID #30 tablet 04/20/15 Cytra-K Oral 2 t PO BID 02/14/18 [place]-3 Fatty Acids/Fish Oil [[place] 3 Fish Oil Softgel] 50,000 each PO SA 02/14/18 Saxagliptin HCl [Onglyza] 5 mg PO BREAKFAST 02/14/18 Primary Care Physician: NOT,DEFINED [NON-STAFF] - Please follow up with your Primary Care Physician in: 1-2 weeks Please Follow Up With: Ra Baker MD When: 1-2 weeks Proposed Discharge Date: 02/15/18
--- NOTE | 2018-02-15 17:20 | PCM.DC.SUM ---
<Kamlesh Blankenship - Last Filed: 02/15/18 17:20> Discharge Date and Diagnosis - Problem List Patient Problems: Active and Suspected Problems Right leg weakness (Acute) Afib (Acute) Date of Admission: 02/14/18 Date of Discharge: 02/15/18 - Primary Discharge Diagnosis Active and Suspected Problems Presyncope 2/2 hypotension and new onset Atrial fibrillation DMt2 T2DM CKD stage III Hx DVT/PE BPH Obesity - Secondary Discharge Diagnosis Chronic Problems CKD (chronic kidney disease) (Chronic) Pulmonary emboli (Chronic) Chronic acquired lymphedema (Chronic) Dyslipidemia (Chronic) Morbid obesity with BMI of 40.0-44.9, adult (Chronic) Type 2 diabetes mellitus (Chronic) Benign prostatic hypertrophy (Chronic) Hospital Course and Treatment Imaging Results: CT brain non contrasted: FINDINGS: No evidence for shift of midline structures, mass effect or compression of ventricles noted. No acute intra-axial or extra-axial hemorrhage is seen. No abnormal intracranial fluid collections identified. Scattered foci of low-attenuation in the periventricular and subcortical white matter noted which are nonspecific in imaging appearance however likely related with chronic small vessel disease. Intracranial atherosclerotic vascular calcifications are seen. Mild mucosal thickening frontal sinuses. Pneumatization of the petrous apices Posttreatment changes in the right globe present which were not seen on previous exam IMPRESSION: Stable CT examination of the head since prior study. Chronic small vessel disease. CXR: FINDINGS: Right size is slightly prominent. Tortuosity of the aortic knob. Increased reticular markings in the lung bases. Subsegmental atelectasis in the lung bases also seen. Degenerative changes in the thoracic spine in the glenohumeral joints. No pneumothorax or consolidative process. No pleural effusion. IMPRESSION: Redemonstration of increased reticular markings in the lung bases may relate with interstitial lung disease. Bibasilar subsegmental atelectasis. No pneumothorax or consolidation. Please consider high-resolution chest CT for better assessment interstitial lung disease Echo: Interpretation Summary Normal LV size. Moderate concentric left ventricular hypertrophy. Left ventricular systolic function is normal. The estimated ejection fraction is 55 %. Mild tricuspid valve insufficiency. Unable to assess diastolic dysfunction. Contrast injection was performed. MRI: brain non contrast FINDINGS: Normal bilateral petrous carotid arteries. Normal right cavernous carotid artery with a normal supraclinoid bifurcation. Normal left cavernous carotid artery with a normal supraclinoid bifurcation. Normal right A1 segments of the anterior cerebral artery. Normal left A1 segments of the anterior cerebral artery. Anterior communicating artery not visualized consistent with normal developmental variant Normal bilateral A2 segments of the anterior cerebral arteries. Normal right M1 and M2 segments of the middle cerebral arteries, with a normal M1 bifurcation. Normal left M1 and M2 segments of the middle cerebral arteries, with a normal M1 bifurcation. Posterior communicating arteries aren't visualized consistent with normal developmental variant Normal bilateral vertebral arteries. Normal basilar artery with a normal basilar bifurcation. The visualized bilateral superior cerebellar (SCA) arteries are normal. Normal bilateral P1, P2 and visualized P3 segments of the posterior cerebral arteries. There is no demonstrated aneurysm of the [place]. There is no major vessel occlusion or hemodynamically significant stenosis. There is no demonstrated abnormality of the visualized brain. MRI/MRA Neck without Contrast IMPRESSION: Moderate atherosclerotic changes. 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 He was brought to the ED and found to be in AF and was admitted with concern for a stroke. CT brain was negative. He was placed on telemetry. Cardiology and neurology were consulted. He underwent an echocardiogram as above. He had MRI of the brain and MRA of the head and neck with no acute changes. He had low blood pressure which improved after his lisinopril was DC'd. His rate was controlled with his daily coreg dose. As he did not have an acute infarct his symptoms were attributed to low blood pressure and his new onset AF. He was advised to continue xarelto with his AF and hx of DVT/PE. Lisinopril was discontinued. He was advised to follow up with cardiology for further workup which may include outpatient stress testing. He was discharged home in stable condition. Follow-up as directed with cardiology and PCP. This patient was seen by Kamlesh Blankenship PA-C under the supervision of Doctor Javier. [] Discharge Diet: Low fat/ Low Cholesterol, 2000 mg Sodium Diet Discharge Activity: Return to Normal Activity Home Medications: Medications to take at Discharge Finasteride [Proscar] 5 mg PO QHS 10/17/14 Simvastatin [Zocor] 10 mg PO QHS 10/17/14 Tamsulosin HCl [Flomax] 0.4 mg PO QHS 10/17/14 Rivaroxaban [Xarelto] 20 mg PO DAILY 30 Days tablet 11/08/14 Furosemide [Lasix] 10 mg PO BREAKFAST 04/19/15 Sertraline HCl [Zoloft] 50 mg PO DAILY 04/19/15 Metformin HCl [Glucophage] 500 mg PO BIDCM #1 tablet 04/20/15 Metoprolol Tartrate [Lopressor (beta carlitos)] 12.5 mg PO BID #30 tablet 04/20/15 Cytra-K Oral 2 t PO BID 02/14/18 Dawson-3 Fatty Acids/Fish Oil [[place] 3 Fish Oil Softgel] 50,000 each PO SA 02/14/18 Saxagliptin HCl [Onglyza] 5 mg PO BREAKFAST 02/14/18 Primary Care Physician: NOT,DEFINED [NON-STAFF] - Please follow up with your Primary Care Physician in: 1-2 weeks Please Follow Up With: Ra Baker MD When: 1-2 weeks Disposition: Home Minutes spent on discharge:: 40 Patient Condition:: Stable Medical Necessity - Tobacco Use Smoking Status: Never smoker Tobacco Use: Non-smoker Meaningful Use Info Meaningful Use Diagnoses (Choose all that apply): None applicable <Joy Javier - Last Filed: 02/15/18 17:33> Discharge Date and Diagnosis - Primary Discharge Diagnosis Active and Suspected Problems Right leg weakness (Acute) Afib (Acute) - Secondary Discharge Diagnosis Chronic Problems CKD (chronic kidney disease) (Chronic) Pulmonary emboli (Chronic) Chronic acquired lymphedema (Chronic) Dyslipidemia (Chronic) Morbid obesity with BMI of 40.0-44.9, adult (Chronic) Type 2 diabetes mellitus (Chronic) Benign prostatic hypertrophy (Chronic) Hospital Course and Treatment Summary of Care Provided: The patient is a 78 year old M [] Code Visit Inpatient E&M: 23745 Disch Hosp
--- NOTE | 2018-02-15 17:30 | DS.PCM_ITS ---
<Kamlesh Blankenship - Last Filed: 02/15/18 17:20> Discharge Date and Diagnosis - Problem List Patient Problems: Active and Suspected Problems Right leg weakness (Acute) Afib (Acute) Date of Admission: 02/14/18 Date of Discharge: 02/15/18 - Primary Discharge Diagnosis Active and Suspected Problems Presyncope 2/2 hypotension and new onset Atrial fibrillation DMt2 T2DM CKD stage III Hx DVT/PE BPH Obesity - Secondary Discharge Diagnosis Chronic Problems CKD (chronic kidney disease) (Chronic) Pulmonary emboli (Chronic) Chronic acquired lymphedema (Chronic) Dyslipidemia (Chronic) Morbid obesity with BMI of 40.0-44.9, adult (Chronic) Type 2 diabetes mellitus (Chronic) Benign prostatic hypertrophy (Chronic) Hospital Course and Treatment Imaging Results: CT brain non contrasted: FINDINGS: No evidence for shift of midline structures, mass effect or compression of ventricles noted. No acute intra-axial or extra-axial hemorrhage is seen. No abnormal intracranial fluid collections identified. Scattered foci of low-attenuation in the periventricular and subcortical white matter noted which are nonspecific in imaging appearance however likely related with chronic small vessel disease. Intracranial atherosclerotic vascular calcifications are seen. Mild mucosal thickening frontal sinuses. Pneumatization of the petrous apices Posttreatment changes in the right globe present which were not seen on previous exam IMPRESSION: Stable CT examination of the head since prior study. Chronic small vessel disease. CXR: FINDINGS: Right size is slightly prominent. Tortuosity of the aortic knob. Increased reticular markings in the lung bases. Subsegmental atelectasis in the lung bases also seen. Degenerative changes in the thoracic spine in the glenohumeral joints. No pneumothorax or consolidative process. No pleural effusion. IMPRESSION: Redemonstration of increased reticular markings in the lung bases may relate with interstitial lung disease. Bibasilar subsegmental atelectasis. No pneumothorax or consolidation. Please consider high-resolution chest CT for better assessment interstitial lung disease Echo: Interpretation Summary Normal LV size. Moderate concentric left ventricular hypertrophy. Left ventricular systolic function is normal. The estimated ejection fraction is 55 %. Mild tricuspid valve insufficiency. Unable to assess diastolic dysfunction. Contrast injection was performed. MRI: brain non contrast FINDINGS: Normal bilateral petrous carotid arteries. Normal right cavernous carotid artery with a normal supraclinoid bifurcation. Normal left cavernous carotid artery with a normal supraclinoid bifurcation. Normal right A1 segments of the anterior cerebral artery. Normal left A1 segments of the anterior cerebral artery. Anterior communicating artery not visualized consistent with normal developmental variant Normal bilateral A2 segments of the anterior cerebral arteries. Normal right M1 and M2 segments of the middle cerebral arteries, with a normal M1 bifurcation. Normal left M1 and M2 segments of the middle cerebral arteries, with a normal M1 bifurcation. Posterior communicating arteries aren't visualized consistent with normal developmental variant Normal bilateral vertebral arteries. Normal basilar artery with a normal basilar bifurcation. The visualized bilateral superior cerebellar (SCA) arteries are normal. Normal bilateral P1, P2 and visualized P3 segments of the posterior cerebral arteries. There is no demonstrated aneurysm of the [place]. There is no major vessel occlusion or hemodynamically significant stenosis. There is no demonstrated abnormality of the visualized brain. MRI/MRA Neck without Contrast IMPRESSION: Moderate atherosclerotic changes. 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 He was brought to the ED and found to be in AF and was admitted with concern for a stroke. CT brain was negative. He was placed on telemetry. Cardiology and neurology were consulted. He underwent an echocardiogram as above. He had MRI of the brain and MRA of the head and neck with no acute changes. He had low blood pressure which improved after his lisinopril was DC'd. His rate was controlled with his daily coreg dose. As he did not have an acute infarct his symptoms were attributed to low blood pressure and his new onset AF. He was advised to continue xarelto with his AF and hx of DVT/PE. Lisinopril was discontinued. He was advised to follow up with cardiology for further workup which may include outpatient stress testing. He was discharged home in stable condition. Follow-up as directed with cardiology and PCP. This patient was seen by Kamlesh Blankenship PA-C under the supervision of Doctor Javier. [] Discharge Diet: Low fat/ Low Cholesterol, 2000 mg Sodium Diet Discharge Activity: Return to Normal Activity Home Medications: Medications to take at Discharge Finasteride [Proscar] 5 mg PO QHS 10/17/14 Simvastatin [Zocor] 10 mg PO QHS 10/17/14 Tamsulosin HCl [Flomax] 0.4 mg PO QHS 10/17/14 Rivaroxaban [Xarelto] 20 mg PO DAILY 30 Days tablet 11/08/14 Furosemide [Lasix] 10 mg PO BREAKFAST 04/19/15 Sertraline HCl [Zoloft] 50 mg PO DAILY 04/19/15 Metformin HCl [Glucophage] 500 mg PO BIDCM #1 tablet 04/20/15 Metoprolol Tartrate [Lopressor (beta carlitos)] 12.5 mg PO BID #30 tablet Cytra-K Oral 2 t PO BID 02/14/18 [place]-3 Fatty Acids/Fish Oil [[place] 3 Fish Oil Softgel] 50,000 each PO SA Saxagliptin HCl [Onglyza] 5 mg PO BREAKFAST 02/14/18 Primary Care Physician: NOT,DEFINED [NON-STAFF] - Please follow up with your Primary Care Physician in: 1-2 weeks Please Follow Up With: Ra Baker MD When: 1-2 weeks Disposition: Home Minutes spent on discharge:: 40 Patient Condition:: Stable Medical Necessity - Tobacco Use Smoking Status: Never smoker Tobacco Use: Non-smoker Meaningful Use Info Meaningful Use Diagnoses (Choose all that apply): None applicable <Joy Javier - Last Filed: 02/15/18 17:33> Discharge Date and Diagnosis - Primary Discharge Diagnosis Active and Suspected Problems Right leg weakness (Acute) Afib (Acute) - Secondary Discharge Diagnosis Chronic Problems CKD (chronic kidney disease) (Chronic) Pulmonary emboli (Chronic) Chronic acquired lymphedema (Chronic) Dyslipidemia (Chronic) Morbid obesity with BMI of 40.0-44.9, adult (Chronic) Type 2 diabetes mellitus (Chronic) Benign prostatic hypertrophy (Chronic) Hospital Course and Treatment Summary of Care Provided: The patient is a 78 year old M [] Code Visit Inpatient E&M: 05295 Disch Hosp
== END 2018-02-15 17:18 | disposition home or self-care (01) ==
LOC: ED 14:57 → PCU 15:49
PROVIDERS: Emergency Provider Emergency Medicine; Family Provider Internal Medicine; PCP Internal Medicine; Visit Provider Internal Medicine
DX: R55 Syncope and collapse (principal); R53.1 Weakness; N40.0 Benign prostatic hyperplasia without lower urinary tract symptoms; E11.22 Type 2 diabetes mellitus with diabetic chronic kidney disease; I12.9 Hypertensive chronic kidney disease with stage 1 through stage 4 chronic kidney disease, or unspecified chronic kidney disease; N18.3 Chronic kidney disease, stage 3 (moderate); E66.01 Morbid (severe) obesity due to excess calories; Z68.32 Body mass index [BMI] 32.0-32.9, adult; Z71.3 Dietary counseling and surveillance; Z79.01 Long term (current) use of anticoagulants; Z86.718 Personal history of other venous thrombosis and embolism; Z86.711 Personal history of pulmonary embolism; Z79.899 Other long term (current) drug therapy; Z79.84 Long term (current) use of oral hypoglycemic drugs; E78.5 Hyperlipidemia, unspecified; I48.0 Paroxysmal atrial fibrillation; I95.9 Hypotension, unspecified; H54.40 Blindness, one eye, unspecified eye; R20.0 Anesthesia of skin; R51 Headache; R11.2 Nausea with vomiting, unspecified; R42 Dizziness and giddiness
CPT/HCPCS: 70450; 70544; 70547; 70551; 71045; 80048; 80061; 80076; 82962; 84484; 85025; 85610; 85730; 92523; 93005; 93306; 96361; 96374; 97162; 97165; 99218; 99285; J7030; Q9957; A4216; C8929; G0378; G8978; G8979; G8987; G8988; G8989; G9174; G9175; G9176; J2405

== ENCOUNTER → 2018-03-11 06:17 | Outpatient (CLI) | payer MEDICARE, SELFPAY ==
--- NOTE | 2018-03-11 06:24 | CT_ITS ---
STUDY: CT CHEST WITHOUT CONTRAST REASON FOR EXAM: Male, 78 years old. Abnormal chest x-ray, history of atrial fibrillation, diabetes, DB RADIATION DOSAGE (If Supplied By Facility): CTDIvol = ( 18.82 ) mGy, DLP = ( 703.03 ) mGycm TECHNIQUE: Transaxial 2.5 and 1.25 mm imaging was performed without the administration of intravenous contrast material. Multiplanar coronal and sagittal images were reformatted. This examination is limited for the evaluation of gastrointestinal, solid organs and vascular structures due to the lack of intravenous and oral contrast. Individualized dose optimization techniques were used for this CT. COMPARISON: CT chest 11/07/2014. FINDINGS: There are bilateral predominantly basilar tree in bud changes, bronchial wall thickening of the bilateral inferior bronchi and bronchial luminal narrowing. Opacification left upper lobe measuring 0.7 x 0.7 x 1.8 cm ( AP x width x height ). image 69 series 2, image 107 series 601. There are scattered granulomata. Mild predominantly basilar atelectasis versus scarring. No cavitary lesion, pulmonary emphysema, confluent pneumonia detected. There is no demonstrated pleural abnormality. There is borderline cardiomegaly. There are calcifications of the coronary arteries. Stable mediastinal and right hilar calcified lymph nodes. . Normal unenhanced pulmonary arteries. There is atherosclerotic tortuosity of the aortic arch and descending thoracic aorta. There are multi-level degenerative changes of the thoracic spine and bilateral shoulder joints, sternoclavicular and costochondral junction. There is demineralization of osseous structures. Calcification of the anterior longitudinal ligament. There are splenic granulomata. CT/Chest without Contrast IMPRESSION: Interstitial lung disease may indicate inflammatory process such as pneumonitis. The previous CT shows faint tree-in-bud formation in the upper lobes, the lower lobes were markedly degraded by motion but have probable interstitial disease as well, this however has increased since previous examination. Etiology such as inflammation such as atypical inflammation/SURI may be present. In addition there is bronchial wall thickening likely due to interstitial bronchial inflammation, possible mucous plugging in a bronchus in the left upper lobe. Follow-up is recommended to assess resolution of findings. Multiple and numerous exposure. Arteriosclerosis and coronary artery disease and borderline cardiac enlargement. Osteoporosis, degenerative changes, possible DISH. No pulmonary edema, congestive heart failure, active cavitating tuberculosis or confluent pneumonia. Electronically Signed: Tracee Vaughn MD at 7:53 EDT , Service support ,
--- NOTE | 2018-03-11 09:22 | STRESSREP_ITS ---
Stress Test Report Date: 03/12/2018 Procedure: Pharmacologic stress nuclear imaging study Indications: Atrial fibrillation Consent: Per the patient Procedure: The patient underwent pharmacologic (Regadenoson) evaluation with a peak heart rate of 96 beats per minute (67 predicted maximal heart rate) and a peak blood pressure of 138/84 mmHg. The baseline ECG demonstrated normal sinus rhythm; poor R-wave progression. The peak pharmacologic ECG demonstrated no obvious ECG changes. There were PVCs pretest and during infusion and occasional PVCs during recovery. There was no complaint of chest discomfort during pharmacologic infusion or recovery. The examination was discontinued secondary to completion of protocol. Impression: 1. Pharmacologic (Regadenoson) evaluation 2. Peak pharmacologic ECG with no obvious ECG changes. 3. There were rare PVCs pretest and during infusion and occasional PVCs during recovery 4. Nuclear images pending Myocardial perfusion imaging study: Technique: The patient was injected with 14.9 millicuries of technetium 99m Cardiolite and subsequently rest SPECT Cardiolite nuclear imaging was obtained in the horizontal long, vertical long, and short axis views. The patient underwent pharmacologic (Regadenoson) evaluation with a peak heart rate of 96 beats per minute (67 % percent predicted maximal heart rate) and a peak blood pressure of 138/84 mmHg. The patient was injected with 44.3 millicuries of technetium 99m Cardiolite and subsequently stress SPECT Cardiolite nuclear imaging was obtained in the horizontal long, vertical long, and short axis views. A gated Cardiolite study at peak stress was obtained. Interpretation: Rest and stress SPECT Cardiolite nuclear imaging status post realignment, normalization, and attenuation correction demonstrate a small area of subtle diminished tracer uptake in the apical segments without significant change between rest and stress. There is end systolic thickening and brightening. The gated Cardiolite study demonstrates myocardial thickening and inward wall motion. The reported LVEF is 53 %. Impression: 1. Rest and stress SPECT Cardiolite nuclear imaging demonstrate a small area of subtle diminished tracer uptake in the apical segments without significant change between rest and stress appearing compatible with the effects of soft tissue attenuation/artifact or physiologic apical thinning with no myocardial perfusion changes consider diagnostic for associated stress-induced myocardial ischemia or previous myocardial injury/infarction. 2. The gated Cardiolite study reports an LVEF of 53 %. This note was generated with [employer] software. It may contain incorrect words, spelling, and punctuation that were not noted in checking the note before signing.
== END ==
PROVIDERS: Family Provider Internal Medicine; PCP Internal Medicine; Visit Provider Internal Medicine
DX: I48.0 Paroxysmal atrial fibrillation (principal); R94.31 Abnormal electrocardiogram [ECG] [EKG]; R93.8 Abnormal findings on diagnostic imaging of other specified body structures
CPT/HCPCS: 71250; 78452; 93017; A9500; A4216; J2785

== ENCOUNTER 2019-07-23 12:35 | Emergency (ER) | payer MEDICARE, SELFPAY ==
[2019-07-23] VITALS (8 sets, daily range): BP systolic 128–142; BP diastolic 72–83; PULSE 72–82; RESP 14–20; TEMP 36.5–36.7; O2SAT 95–100; BMI 33.0; BMI 36.0
--- NOTE | 2019-07-23 12:39 | EKG12_ITS ---
Test Reason : SOB Blood Pressure : / mmHG Vent. Rate : 072 BPM Atrial Rate : 072 BPM P-R Int : 232 ms QRS Dur : 118 ms QT Int : 434 ms P-R-T Axes : -18 -32 035 degrees QTc Int : 475 ms Sinus rhythm with 1st degree A-V block with occasional Premature ventricular complexes Left axis deviation Abnormal ECG Confirmed by NIDIA KASPER, CHANEL ([id number]), editorial specialist PRAMOD SINLCAIR ([id number]) on 07/25/2019 3:10:20 PM Referred By: Confirmed By:CHANEL JACOB MD
--- NOTE | 2019-07-23 12:41 | RAD_ITS ---
STUDY: X-RAY CHEST REASON FOR EXAM: Male, 79 years old. Chest pain TECHNIQUE: Frontal view of the chest COMPARISON: CT dated 03/11/2018. FINDINGS: There are stable chronic increased interstitial markings, predominantly in the lower lobes. There is increased opacity in the right lung base which likely represents superimposed pneumonitis. The upper lung osorio are clear . There are no pleural effusions The heart is normal in size. The visualized osseous structures are within normal limits. RAD/Chest PA and Lateral IMPRESSION: Chronic increased interstitial markings in the lungs, predominantly in the lower lobes. Increased opacity in the right lung base which likely represent superimposed pneumonitis. Electronically Signed: Rick Chavarria, at 15:00 EDT Tel , Service support ,
--- NOTE | 2019-07-23 13:13 | ED.VIS.DYS ---
History of Present Illness Chief Complaint: Shortness of Breath Informant: Patient, Spouse/S.O. 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 Negative for: Bloody Sputum, Clear sputum, Fever, Sweats Chest Pain: Continuous, - - heaviness Narrative: Patient has been having to plus weeks of symptoms, shortness of breath with light exertion and at rest, chest heaviness that is mild but gets worse with exertion, it has not gone away. Chronic leg edema has been worse in the last couple weeks, he states when he takes his daily Lasix he does not notice that he urinates anymore, and cannot tell me how long that has been the case. He has had no recent medication changes. No history of heart or lung problems that he knows of. Well-controlled diabetes and well-controlled blood pressure for a long time. 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 He states he had pulmonary emboli on both sides that he was anticoagulated for but developed hematuria and decided with his doctor that he would discontinue the anticoagulant, that was about a month ago or more. Since then, his hematuria resolved and has not recurred. - Past Medical History (1) New onset atrial fibrillation Status: Chronic (2) Hyperlipidemia Status: Chronic (3) Pulmonary embolism Status: Chronic (4) Type 2 diabetes mellitus without complications Status: Chronic Past Medical History - Allergies and Home Meds Allergies/Adverse Reactions: Allergies polio vaccine Adverse Reaction (Uncoded 07/23/19 12:36) Other Primary Care Physician: Martha Orr DO [Primary Care Provider] - Surgical History: total hip arthroplasty, - Smoking Status: Never smoker - Family History Paternal Family History: Family History (Last Reviewed 07/23/19 @ 12:13 by Georgia Savage) Father Heart disease Family History: Reports: Heart Disease Maternal Family History: Family History (Last Reviewed 07/23/19 @ 12:13 by Georgia Savage) Father Heart disease Family History: Reports: Hypertension Review of Systems General: Reports: Malaise. Denies: Chills, Fever, Sweats Eyes: Denies: Visual changes - bilaterally, Diplopia ENT: Denies: Rhinorrhea, Sore throat Cardiovascular: Reports: Chest pain. Denies: Palpitations, Heart racing Respiratory: Reports: Dyspnea, Cough, Dyspnea on exertion, Orthopnea. Denies: Sputum Gastrointestinal: Denies: Abdominal pain, Nausea, Vomiting, Diarrhea, Melena, Hematochezia Genitourinary: Denies: Dysuria, Hematuria, Frequency Musculoskeletal: Reports: Swelling. Denies: Back pain, Extremity Pain Skin: Denies: Rash, Wounds Neurological: Denies: Headache, Weakness, Numbness Physical Exam Vital Signs/Narrative: Vital Signs Temp Pulse Resp BP Pulse Ox 07/23/19 12:36 98.1 F 74 17 142/72 H 97 Inital Vital Signs reviewed: Yes General: Well nourished, Well developed, No Acute Distress Head: Normocephalic, Atraumatic Eyes: Perrl, EOMI ENT: Moist mucous membranes, No rhinorrhea Neck: Supple, Nontender, No JVD Cardiovascular: Regular rate, Regular rhythm, No murmurs Respiratory: No distress, Chest nontender, Rales - bibasilar, Wheezing - expiratory, mild Abdomen: Soft, Nontender, Nondistended, Normal bowel sounds Back: Nontender, Normal Inspection Extremities: Nontender, Edema - BLE to knees, 2+ Skin: Normal color - except for dark stasis BLE discoloration; no evidence of cellulitis, No rash, No Trauma Neurological: Alert, Oriented x3, Cranial nerves II-XII grossly intact, Normal Strength, Normal Sensation, Normal Gait Psychological: Normal affect, Normal Mood Diagnostic/Tx/Re-eval Chest X-Ray - ED: 2 View, Read by ED Physician, Right Infiltrate Impressions Chest X-Ray 07/23/19 12:41 IMPRESSION: Chronic increased interstitial markings in the lungs, predominantly in the lower lobes. Increased opacity in the right lung base which likely represent superimposed pneumonitis. Electronically Signed: Rick Aura, at 15:00 EDT Tel , Service support , 07/23/19 12:41 Xray Chest [Chest PA and Lateral] [RAD] Stat Laboratory Results 07/23/19 07/23/19 07/23/19 13:30 13:30 13:30 WBC 5.6 RBC 4.08 L Hgb 11.7 L Hct 36.8 L MCV 90.2 MCH 28.7 MCHC 31.8 L RDW Std Deviation 42.3 RDW Coeff of Sasha 12.8 Plt Count 180 MPV 9.9 Immature Gran % (Auto) 0.400 Neut % (Auto) 60.5 Lymph % (Auto) 25.0 [place] % (Auto) 7.4 Eos % (Auto) 5.8 H Baso % (Auto) 0.9 Absolute Neuts (auto) 3.4 Absolute Lymphs (auto) 1.39 Nucleated RBC % 0 Sodium 143 Potassium 4.1 Chloride 107 Carbon Dioxide 31.0 Anion Gap 5 BUN 23 H Creatinine 1.22 Estim Creat Clear Calc 61.27 Est GFR (MDRD) Af Amer 74 Est GFR (MDRD) Non-Af 61 BUN/Creatinine Ratio 18.9 Glucose 120 H Calcium 8.5 Troponin I < 0.015 B-Natriuretic Peptide 34.5 - Rhythm Strip Rhythm Strip: Sinus Rhythm Rate: 75 Ectopy: PVC(s) - EKG Initial EKG Interpretation: Sinus Rhythm, No Acute Injury Pattern, - - Several PVCs. Left axis. Prior: Unchanged - except Afib before Treatment - Dyspnea: Albuterol, Atrovent Repeat Evaluation: Improved With Ambulation: Asymptomatic - without desaturation, 97-98 on RA - Medical Decision Making Work-up is consistent with community-acquired pneumonia. He feels much better after albuterol treatment. He does not have any vital signs or ancillary tests that indicate sepsis here. However, his ancillaries do indicate the lack of acute decompensated congestive heart failure as etiology for his symptoms now, consistent with the lack of cardiac disease in his past (although he has a past EKG with Afib, which the pt is unaware of). He was given IV Zosyn and a initial dose of oral azithromycin. I offered admission but he declines and feels very well when he walks around, and will follow-up. We discussed the possibility of a PE given that he decided to discontinue his anticoagulants lately, not but it was an appropriate. At this time since we have an alternative diagnosis and he is feeling much better with aerosols, I do not think we have to risk his kidneys with his mild chronic renal insufficiency with doing CT angiography. However, if treating his pneumonia does not result in improvement, he may require further testing. We discussed this and he is comfortable with this plan of close outpatient follow-up, discharged on Zithromax and an albuterol inhaler. Advised to take a daily aspirin as well. ED Disposition - Plan for ED Patient: Disposition: Home or Assisted Living Diagnosis: CAP (community acquired pneumonia) Instructions: PNEUMONIA (Adult) Prescriptions: Azithromycin 250 mg PO DAILY #4 tab Transmission Status: Pending to [facility] Albuterol Inhaler [Ventolin Hfa] 1 - 2 puff INHALATION Q4H PRN PRN #1 inhaler PRN Reason: Wheezing Transmission Status: Pending to [facility] Referrals: Martha Orr DO [Primary Care Provider] - 3-5 Days Additional Instructions: take Aspirin 325mg once daily.
[2019-07-23] MEDS: Albuterol 2.5 MG/3 ML VIAL.NEB. INHALATION (13:26)
[2019-07-23] MEDS: Ipratropium/Albuterol Sulfate 3 ML AMPUL.NEB INHALATION (13:26)
[2019-07-23] MEDS: Furosemide 20 MG/2 ML VIAL IV (13:40)
[2019-07-23 13:42] LABS: Absolute Lymphocyte Count 1.39 X10^3/uL (0.83-4.51); Absolute Neutrophil Count 3.4 X10^3/uL (2.0-7.7); Basophil# 0.05 X10^3/uL; Basophil% 0.9 % (0-1); Eosinophil# 0.32 X10^3/uL; Eosinophils% 5.8 % (0-5); Hematocrit 36.8 % (40-54); Hemoglobin 11.7 g/dL (13.0-16.5); Lymphocyte # 1.39 X10^3/ul (4.0); Mean Corp Hgb Conc 31.8 g/dL (32-36); Mean Corpuscular Hgb 28.7 pg (27.0-32.0); Mean Corpuscular Volume 90.2 fL (80-94); Mean Platelet Vol. 9.9 fl (6.2-12.0); Monocyte# 0.41 X10^3/uL; Monocyte% 7.4 % (0-10); NRBC Flagged by Analyzer 0 % (0-5); Neutrophil # 3.36 X10^3/uL (2.7-7.7); Neutrophil % 60.5 % (47-70); Platelet Count 180 K/mm3 (150-450); RBC Distribution Width CV 12.8 % (11.6-14.6); RBC Distribution Width SD 42.3 fl (35.1-43.9); Red Blood Count 4.08 M/mm3 (4.6-6.2); White Blood Count 5.6 K/mm3 (4.4-11.0)
[2019-07-23 14:02] LABS: Anion Gap 5 (5-15); BUN 23 mg/dL (7-18); BUN/Creat Ratio 18.9 RATIO (10-20); Calcium,Total 8.5 mg/dL (8.5-10.1); Chloride 107 mmol/L (98-107); Creatinine, Serum 1.22 mg/dL (0.70-1.30); EST Glomerular Filtration Rate 61 mL/min (>60); Est Glom Filt Rate - Afr Amer 74 mL/min (>60); Estimated Creatinine Clearance 61.27 ml/min; Glucose 120 mg/dL (74-106); Potassium 4.1 mmol/L (3.5-5.1); Sodium Level 143 mmol/L (136-145)
[2019-07-23 14:12] LABS: BNP,B-Type NATRIURETIC PEPTIDE 34.5 pg/mL (0-100)
[2019-07-23] MEDS: Azithromycin 250 MG Tablet 500 MG PO (15:29)
== END 2019-07-23 16:52 | disposition home or self-care (01) ==
PROVIDERS: Emergency Provider Emergency Medicine; Family Provider Internal Medicine; PCP Internal Medicine
DX: J18.9 Pneumonia, unspecified organism (principal); I48.2 Chronic atrial fibrillation; E78.5 Hyperlipidemia, unspecified; E11.9 Type 2 diabetes mellitus without complications; Z79.84 Long term (current) use of oral hypoglycemic drugs; Z79.899 Other long term (current) drug therapy
CPT/HCPCS: 71046; 80048; 83880; 84484; 85025; 93005; 94640; 94760; 96365; 96375; 99285; J7050; A4216; J1940

== ENCOUNTER 2021-10-25 08:10 | Emergency (ER) | payer MEDICARE, SELFPAY ==
[2021-10-25 08:11] VITALS: BP 138/95; PULSE 98; RESP 16; TEMP 35.7; O2SAT 100; BMI 29.4
--- NOTE | 2021-10-25 08:33 | EDS_ITS ---
HPI History of Present Illness Chief Complaint: Dizziness Detail of Chief Complaint: Dizziness that started this morning Informant: patient Narrative Narrative: Patient presents with dizziness that started this morning when he try to get out of bed. He describes lightheadedness and feeling off balance as well as vertigo symptoms. Patient states that he had vertigo in 2008 it feels similar to that. Patient states he had dry heaves x3. He denies any falls or head injuries. He denies headache. Patient had been on Xarelto but because of hematuria was taken off and is only on aspirin currently. Patient has history of A. fib. He denies chest pain or shortness of breath. Currently just feels fatigued. Prior similar symptoms: Yes PFSH [facility] Medical History (Updated 10/25/21 @ 10:[address] Carlos Crook, ) BPH (benign prostatic hyperplasia) Chronic kidney disease History of deep venous thrombosis HTN (hypertension) Hyperlipidemia Lymphedema New onset atrial fibrillation Obesity Pulmonary embolism Type 2 diabetes mellitus without complications Home Medications finasteride 5 mg PO QHS 10/17/14 [History Last Taken 07/22/19] simvastatin 10 mg PO QHS 10/17/14 [History Last Taken 07/23/19] tamsulosin 0.4 mg PO QHS 10/17/14 [History Last Taken 07/22/19] furosemide 10 mg PO BREAKFAST 04/19/15 [History Last Taken 07/22/19] metformin 500 mg PO BIDCM #1 tab 04/20/15 [Rx Last Taken 07/23/19] metoprolol tartrate 12.5 mg PO BID #30 tab 04/20/15 [Rx Last Taken 07/23/19] albuterol sulfate 1 - 2 puff INHALATION Q4H PRN PRN #1 inhaler 07/23/19 [Rx Last Taken Unknown] azithromycin 250 mg PO DAILY #4 tab 07/23/19 [Rx Last Taken Unknown] cholecalciferol (vitamin D3) 50,000 unit PO SA 07/23/19 [History Last Taken 07/23/19] saxagliptin 5 mg tablet 5 mg PO BREAKFAST 07/23/19 [History Last Taken 07/23/19] meclizine 25 mg PO TID PRN #10 tab 10/25/21 [Rx Last Taken Unknown] ondansetron 4 mg PO Q8H PRN PRN #10 tab 10/25/21 [Rx Last Taken Unknown] Allergy/AdvReac Type Severity Reaction Status Date / Time polio vaccine AdvReac Other Uncoded 10/25/21 08:13 Family History Father Heart disease Surgical History H/O total hip arthroplasty History of removal of eye Social History (Updated 07/23/19 @ 12:40 by Chase Cook ASSISTANT FOOD SERVICE MANAGER, ASSISTANT FOOD SERVICE MANAGER-C) Smoking Status: Never smoker alcohol intake: never ROS ROS ED ROS Narrative Dizziness Constitutional Constitutional ED: Reports systems reviewed and no addt'l complaints, except as documented; Denies body ache(s), change in weight or chills Eyes Eyes: Denies acute decrease in peripheral vision, change in vision, double vision or loss of vision ENT ENT ED: Reports none; Denies ear pain, lip swelling, loss taste/smell, neck pain, otalgia or sore throat Cardiovascular Cardiovascular: Reports none; Denies abdominal pain, chest pain with activity, leg edema, lightheadedness, palpitations, rapid heart rate or syncope Respiratory/Chest Respiratory/Chest: Reports none; Denies change in mental status, dry cough, dyspnea, hemoptysis, shortness of breath at rest or shortness of breath with exertion Gastrointestinal Gastrointestinal: Reports none, nausea and vomiting; Denies abdominal pain, change in stool character, diarrhea, hematemesis, hematochezia, melena or rectal bleeding Genitourinary Genitourinary ED: Reports none; Denies abdominal discomfort, anuria, dysuria, genital pain or polyuria Musculoskeletal Musculoskeletal: Reports none; Denies arthralgias, back pain, difficulty walking, extremity pain, muscle weakness or myalgias Integumentary Reports none; Denies abscess or rash Neurologic Neurologic: Reports none; Denies abnormal gait, confusion, focal weakness, frequent falls, headache(s), loss of vision, numbness, paresthesias, radicular pain, vertigo or weakness Psychiatric Psychiatric: Reports systems reviewed and no addt'l complaints, except as documented and none; Denies behavioral changes, confusion, difficulty concentrating, hallucinations, suicidal ideation, tactile hallucinations or visual hallucinations Endocrine Endocrinology: Denies none, cold intolerance, excessive sweating, fatigue or heat intolerance Hematologic/Lymphatic Hematologic/Lymphatic: Reports none; Denies anemia, easy bleeding or easy bruising Allergic/Immunologic Allergic/Immunologic ED: Denies as per HPI, none, lip swelling, mouth swelling, throat swelling, tongue swelling or hives EXAM Physical Exam Const Vital Signs: 10/25/21 08:11 10/25/21 08:40 Temperature 96.3 F L Temperature Source Temporal Pulse Rate 98 Pulse Rate [Lying] 87 Pulse Rate [Sitting] 99 Pulse Rate [Standing] 113 H Respiratory Rate 16 Respiratory Effort Normal Non-Labored Respiratory Pattern Normal Blood Pressure 138/95 H Blood Pressure [Lying] 133/89 H Blood Pressure [Sitting] 130/81 H Blood Pressure [Standing] 113/78 Blood Pressure Mean 109 Blood Pressure Mean [Lying] 103 Blood Pressure Mean [Sitting] 97 Blood Pressure Mean [Standing] 89 Pulse Ox 100 Oxygen Delivery Method Room Air Positive well nourished and well developed General Appearance ED: well developed and NAD HEENT Reports TM's clear and moist mucous membranes HEENT Narrative: 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 and atraumatic; Negative for trauma or tenderness Tympanic Membrane ED: Yes TM's clear Eyes PERRL and EOMs intact bilaterally General Eye ED: Negative for pale conjunctiva or scleral icterus Neck no lymphadenopathy, supple and no JVD General: Negative for tenderness Chest Wall inspection of chest normal and palpation of chest normal Chest: Negative for tenderness Resp normal respiratory effort and clear to auscultation bilaterally Effort and Inspection: Negative for respiratory distress or pain with movement Auscultation: Negative for rhonchi, wheezes or diminished lung sounds Cardio regular rate, regular rhythm, S1 normal heart sound, S2 normal heart sound and no murmurs Peripheral Pulses: pulses 2+ throughout GI normal to inspection, nondistended, normoactive bowel sounds, soft to palpation, non-tender, non-distended and no masses Back/Spine no CVA tenderness and no thoracic nor lumbar tenderness Extremity normal to inspection General Extremety ED: Negative for edema General Extremity: Negative for edema Neuro oriented x3, CN's II-XII intact bilaterally, no sensory deficits noted and gait normal Neuro Narrative: Finger-nose and heel cramer testing within normal limits, negative Romberg, negative for drift, fundi benign. Hallpike maneuver performed was negative for nystagmus. Sensorium / Orientation: awake, alert, oriented to person, oriented to place and oriented to time Motor Exam: strength 5/5 throughout and strength abnormal Psych mental status grossly normal Skin no rashes or lesions noted and no wounds MDM MDM MDM Narrative Medical decision making narrative: IV line established on arrival. Patient was medicated with Zofran and Antivert and had good resolution of symptoms. Patient was able to ambulate and did not feel dizzy. Patient will be given a prescription for Antivert as well as Zofran. Patient advised to follow-up with primary care physician within next 3 to 5 days. He is to return if persistent dizziness, difficulty with balance, or condition should worsen anyway. I suspect likely benign positional vertigo. Orthostatic vital signs were negative. Lab Data Attestation: I reviewed the patient's lab results. Labs: Laboratory Results - last 24 hr 10/25/21 10/25/21 08:30 08:30 WBC 8.1 RBC 4.70 Hgb 13.8 Hct 41.1 MCV 87.4 MCH 29.4 MCHC 33.6 RDW Std Deviation 43.2 RDW Coeff of Sasha 13.4 Plt Count 103 L MPV 11.9 Immature Gran % (Auto) 0.200 Neut % (Auto) 80.9 H Lymph % (Auto) 12.1 L [place]row % (Auto) 4.0 Eos % (Auto) 2.2 Baso % (Auto) 0.6 Absolute Neuts (auto) 6.5 Absolute Lymphs (auto) 0.98 Nucleated RBC % 0 Platelet Estimate SLT DEC Plt Morphology Comment CLUMPED Sodium 142 Potassium 4.3 Chloride 105 Carbon Dioxide 32.0 Anion Gap 5 BUN 21 H Creatinine 1.25 Estim Creat Clear Calc 57.87 Est GFR (MDRD) Af Amer 71 Est GFR (MDRD) Non-Af 59 L BUN/Creatinine Ratio 16.8 Glucose 154 H Calcium 9.0 Troponin I High Sens 10 EKG Initial EKG: Attestation: I personally reviewed and interpreted this EKG as follows: Comments: A. fib with nonspecific ST changes Discharge Plan Triage Chief Complaint: Dizziness ED Provider: Carlos Crook Dx/Rx/DC Orders Clinical Impression: Benign paroxysmal positional vertigo Instructions: ED BPV Vertigo Prescriptions: New meclizine 25 mg tablet 25 mg PO TID PRN (Reason: dizziness) Qty: 10 RF: 0 ondansetron [ondansetron] 4 MG tablet 4 mg PO Q8H PRN PRN (Reason: Nausea) Qty: 10 RF: 0 No Action simvastatin 10 MG tablet 10 mg PO QHS RF: 0 tamsulosin 0.4 MG capsule 0.4 mg PO QHS RF: 0 finasteride 5 MG tablet 5 mg PO QHS RF: 0 furosemide 20 MG tablet 10 mg PO BREAKFAST RF: 0 metoprolol tartrate 25 MG tablet 12.5 mg PO BID Qty: 30 RF: 0 metformin 1,000 MG tablet 500 mg PO BIDCM Qty: 1 RF: 0 saxagliptin 5 mg tablet 5 mg PO BREAKFAST RF: 0 cholecalciferol (vitamin D3) 50,000 UNIT capsule 50,000 unit PO SA RF: 0 albuterol sulfate 1 INHALER inhaler 1 - 2 puff inhalation Q4H PRN PRN (Reason: Wheezing) Qty: 1 RF: 0 azithromycin 250 MG tablet 250 mg PO DAILY Qty: 4 RF: 0 Primary Care Provider: Martha Orr Referrals: Martha Orr DO [Primary Care Provider] - 3-5 Days Disposition Disposition: Home, Self Care
[2021-10-25 08:40] VITALS: BP 113/78; BP 130/81; BP 133/89; PULSE 113; PULSE 87; PULSE 99
[2021-10-25 08:52] LABS: Absolute Lymphocyte Count 0.98 X10^3/uL (0.83-4.51); Absolute Neutrophil Count 6.5 X10^3/uL (2.0-7.7); Basophil# 0.05 X10^3/uL; Basophil% 0.6 % (0-1); Eosinophil# 0.18 X10^3/uL; Eosinophils% 2.2 % (0-5); Hematocrit 41.1 % (40-54); Hemoglobin 13.8 g/dL (13.0-16.5); Lymphocyte # 0.98 X10^3/ul (0.83-4.51); Lymphocyte % 12.1 % (19-41); Mean Corp Hgb Conc 33.6 g/dL (32-36); Mean Corpuscular Hgb 29.4 pg (27.0-32.0); Mean Corpuscular Volume 87.4 fL (80-94); Mean Platelet Vol. 11.9 fl (6.2-12.0); Monocyte# 0.32 X10^3/uL; NRBC Flagged by Analyzer 0 % (0-5); Neutrophil # 6.52 X10^3/uL (2.7-7.7); Neutrophil % 80.9 % (47-70); POSITIVE COUNT YES; Platelet Count 103 K/mm3 (150-450); RBC Distribution Width CV 13.4 % (11.6-14.6); RBC Distribution Width SD 43.2 fl (35.1-43.9); White Blood Count 8.1 K/mm3 (4.4-11.0)
[2021-10-25 08:53] LABS: Differential Indicated SCAN CRITERIA MET
[2021-10-25] MEDS: 0.9% Normal Saline 1,000 ML 150 ML IV (08:56)
[2021-10-25] MEDS: Meclizine HCl 25 MG Tablet PO (08:57)
[2021-10-25] MEDS: Ondansetron 4 MG/2 ML Vial IV (08:57)
[2021-10-25 09:04] LABS: Anion Gap 5 (5-15); BUN 21 mg/dL (7-18); BUN/Creat Ratio 16.8 RATIO (10-20); Chloride 105 mmol/L (98-107); Creatinine, Serum 1.25 mg/dL (0.70-1.30); EST Glomerular Filtration Rate 59 mL/min (>60); Est Glom Filt Rate - Afr Amer 71 mL/min (>60); Estimated Creatinine Clearance 57.87 ml/min; Glucose 154 mg/dL (74-106); Potassium 4.3 mmol/L (3.5-5.1); Sodium Level 142 mmol/L (136-145); Troponin-I HS 10 pg/mL (3.0-78.0)
[2021-10-25 09:22] LABS: Platelet Estimate SLT DEC (ADEQ); Platelet Morphology CLUMPED
--- NOTE | 2021-10-25 10:43 | EKG12_ITS ---
Test Reason : DIZZINESS Blood Pressure : / mmHG Vent. Rate : 094 BPM Atrial Rate : 136 BPM P-R Int : 000 ms QRS Dur : 102 ms QT Int : 396 ms P-R-T Axes : 000 -37 035 degrees QTc Int : 495 ms Atrial fibrillation with premature ventricular or aberrantly conducted complexes Left axis deviation Prolonged QT Abnormal ECG Confirmed by ALICE KASPER, MARCO ([id number]), legal editor RYAN HARDWICK ([id number]) on 10/30/2021 11:02:27 AM Referred By: LIAM Confirmed By:MARCO JENKINS MD
[2021-10-25 11:10] VITALS: BP 129/86; PULSE 81; RESP 23; O2SAT 98
== END 2021-10-25 11:13 | disposition home or self-care (01) ==
PROVIDERS: Emergency Provider Emergency Medicine; PCP Internal Medicine
DX: H81.10 Benign paroxysmal vertigo, unspecified ear (principal); I12.9 Hypertensive chronic kidney disease with stage 1 through stage 4 chronic kidney disease, or unspecified chronic kidney disease; E11.22 Type 2 diabetes mellitus with diabetic chronic kidney disease; N18.9 Chronic kidney disease, unspecified; I48.91 Unspecified atrial fibrillation; N40.0 Benign prostatic hyperplasia without lower urinary tract symptoms; E78.5 Hyperlipidemia, unspecified; E66.9 Obesity, unspecified; Z68.29 Body mass index [BMI] 29.0-29.9, adult; Z79.01 Long term (current) use of anticoagulants; Z79.84 Long term (current) use of oral hypoglycemic drugs; Z79.899 Other long term (current) drug therapy; Z86.718 Personal history of other venous thrombosis and embolism
CPT/HCPCS: 80048; 84484; 85025; 93005; 96361; 96374; 99285; J7030; A4216; J2405

== ENCOUNTER 2022-05-26 23:03 | Observation (INO) | payer MEDICARE, SELFPAY ==
[2022-05-26 23:04] VITALS: BP 122/78; PULSE 89; RESP 16; TEMP 36.3; O2SAT 100; BMI 29.4
--- NOTE | 2022-05-26 23:22 | CT_ITS ---
STUDY: CT HEAD STROKE PROTOCOL W/O CONTRAST INJECTION REASON FOR EXAM: Male, 82 years old. Neuro deficit, acute, stroke suspected RADIATION DOSAGE (If Supplied By Facility): CTDIvol = ( 44.99 ) mGy, DLP = ( 866.41 ) mGycm TECHNIQUE: Transaxial CT imaging of the brain was performed without administration of intravenous contrast material. Individualized dose optimization techniques were used for this CT. COMPARISON: 02/15/2018 FINDINGS: Normal soft tissue structures. Normal calvarium. Hyperdense right ocular globe There is mild cerebral atrophy with widening of the extra-axial spaces and ventricular dilatation. There are areas of decreased attenuation within the white matter tracts of the supratentorial brain, consistent with microvascular disease changes. Normal basal ganglia and thalami. Normal brainstem. Normal cerebellum. There is no intracranial hemorrhage. There are no findings of an acute ischemic infarction. Normal visualized paranasal sinuses. CT/STROKE Brain/Head without Cont IMPRESSION: Chronic involutional changes of the brain. N.B. : The above Results were Read Back by Mp Gauthier DO to Dr. Lamonte MD, and understanding confirmed on 05/27/2022 00:02:51 (ET). Electronically Signed: Mp Gauthier DO at 0:04 EDT ,
--- NOTE | 2022-05-26 23:22 | CT_ITS ---
STUDY: CTA HEAD AND NECK WITH CONTRAST REASON FOR EXAM: Male, 82 years old. Neuro deficit, acute, stroke suspected RADIATION DOSAGE (If Supplied By Facility): CTDIvol = ( 34.29 ) mGy, DLP = ( 807.76 ) mGycm TECHNIQUE: CT angiography was performed with a multi-detector CT scanner. Data acquisition was obtained from the skull base through the vertex following intravenous administration of IV 100mL [id number]-[id number]. MIP images were reconstructed from the axial data set. Post-processing of the angiographic images was performed, with multiplanar reformation and 3D reconstruction. Individualized dose optimization techniques were used for this CT. COMPARISON: No relevant priors. FINDINGS: Normal bilateral petrous carotid arteries. There is calcified plaque formation of the right cavernous carotid artery, without a cross-sectional luminal stenosis. There is calcified plaque formation of the left cavernous carotid artery, without a cross-sectional luminal stenosis. Normal right A1 segments of the anterior cerebral artery. Normal left A1 segments of the anterior cerebral artery. Normal intact anterior communicating artery (ACOM). Normal bilateral A2 segments of the anterior cerebral arteries. Normal right M1 and M2 segments of the middle cerebral arteries, with a normal M1 bifurcation. Normal left M1 and M2 segments of the middle cerebral arteries, with a normal M1 bifurcation. Normal right posterior communicating artery (PCOM). Normal left posterior communicating artery (PCOM). Normal bilateral vertebral arteries. Normal basilar artery with a normal basilar bifurcation. The visualized bilateral superior cerebellar (SCA) arteries are normal. Normal bilateral P1, P2 and visualized P3 segments of the posterior cerebral arteries. There is no demonstrated aneurysm of the platinum of [place]. There is no demonstrated abnormality of the visualized brain. AORTIC ARCH: Normal visualized aortic arch. Normal origins of the brachiocephalic, left common carotid, and left subclavian arteries. RIGHT CAROTID ARTERIES: Normal right common carotid artery (CCA). There is mild atherosclerotic plaque formation with minimal narrowing of the right carotid bulb. Normal origin of the right internal carotid (ICA) artery without a hemodynamically significant stenosis. Normal visualized cervical portion of the right internal carotid artery. Normal origin of the right external carotid artery (ECA). LEFT CAROTID ARTERIES: Normal left common carotid artery (CCA). There is mild atherosclerotic plaque formation with minimal narrowing of the left carotid bulb. Normal origin of the left internal carotid (ICA) artery without a hemodynamically significant stenosis. Normal visualized cervical portion of the left internal carotid artery. Normal origin of the left external carotid artery (ECA). VERTEBRAL ARTERIES: Normal bilateral vertebral arteries. CT/STROKE CTA Head AND Neck W/Con IMPRESSION: Normal CTA Head and neck with contrast. N.B. : The above Results were Read Back by Mp Gauthier DO to Dr. Lamonte MD, and understanding confirmed on 05/27/2022 00:21:18 (ET). Electronically Signed: Mp Gauthier DO at 0:22 EDT ,
--- NOTE | 2022-05-26 23:22 | EKG12_ITS ---
Test Reason : DYSRHYTHMIA Blood Pressure : / mmHG Vent. Rate : 113 BPM Atrial Rate : 092 BPM P-R Int : 000 ms QRS Dur : 100 ms QT Int : 372 ms P-R-T Axes : 000 -39 070 degrees QTc Int : 510 ms Atrial fibrillation Left axis deviation Abnormal ECG Confirmed by ALICE KASPER, MARCO ([id number]), international editorial producer RHONDA MORALES ([id number]) on 05/27/2022 1:13:43 PM Referred By: ROSEMARY Confirmed By:MARCO JENKINS MD
[2022-05-26 23:28] VITALS: BP 121/61; PULSE 91; RESP 16; O2SAT 99
[2022-05-26 23:32] VITALS: BMI 29.4
[2022-05-26 23:35] LABS: Absolute Lymphocyte Count 1.01 X10^3/uL (0.83-4.51); Absolute Neutrophil Count 7.2 X10^3/uL (2.0-7.7); Basophil# 0.05 X10^3/uL; Basophil% 0.6 % (0-1); Eosinophil# 0.08 X10^3/uL; Eosinophils% 0.9 % (0-5); Hematocrit 43.4 % (40-54); Hemoglobin 13.9 g/dL (13.0-16.5); Lymphocyte # 1.01 X10^3/ul (0.83-4.51); Lymphocyte % 11.3 % (19-41); Mean Corpuscular Hgb 29.2 pg (27.0-32.0); Mean Corpuscular Volume 91.2 fL (80-94); Mean Platelet Vol. 10.5 fl (6.2-12.0); Monocyte# 0.57 X10^3/uL; Monocyte% 6.4 % (0-10); NRBC Flagged by Analyzer 0 % (0-5); Neutrophil # 7.19 X10^3/uL (2.7-7.7); Neutrophil % 80.5 % (47-70); Platelet Count 163 K/mm3 (150-450); RBC Distribution Width CV 13.8 % (11.6-14.6); RBC Distribution Width SD 46.3 fl (35.1-43.9); Red Blood Count 4.76 M/mm3 (4.6-6.2); White Blood Count 8.9 K/mm3 (4.4-11.0)
--- NOTE | 2022-05-26 23:35 | ED.VIS.STROK ---
HPI History of Present Illness Chief Complaint: Neuro S/Sx Informant: patient and spouse/S.O. Onset/Context/Timing Onset: Today and Hours Context: Sudden Onset Timing: Continuous Quality and Location: Positive for Slurred Speech Current Severity: Mild Maximum Severity: Moderate Associated Symptoms Associated Symptoms: Negative for Headache, Nausea, Vomiting or Chest Pain Narrative Narrative: 82-year-old male history of chronic kidney disease, hypertension, DVT, A. fib and diabetes. Previously on Xarelto but taken off due to prior GI bleed. Still on aspirin. Patient had been cleaning corn for hours today probably 4 to 5 hours. Came inside began cutting the corn off the cob. Said he did not feel well. Began sweating profusely and is when he said he had trouble talking. Said his speech was slurred and he was having trouble speaking at all. She said he became pale. This began around 10 PM lasted severely for 30 minutes she sits much improved but is not back to baseline. He is never had an episode like this before. He denies recent illness. He denies any headache, chest pain or abdominal pain. He denies the room spinning. He is never had a stroke or mini stroke before. Prior similar symptoms: No Recent Illness/Hospitalization: No PFSH PFS Medical History BPH (benign prostatic hyperplasia) Chronic kidney disease History of deep venous thrombosis HTN (hypertension) Hyperlipidemia Lymphedema New onset atrial fibrillation Obesity Pulmonary embolism Type 2 diabetes mellitus without complications Home Medications finasteride 5 mg tablet 5 mg PO QHS Prostate 10/17/14 [History Last Taken 07/22/19] simvastatin 10 mg tablet 10 mg PO QHS cholesterol 10/17/14 [History Last Taken 07/23/19] tamsulosin 0.4 mg capsule 0.4 mg PO QHS Prostate 10/17/14 [History Last Taken 07/22/19] furosemide 20 mg tablet 10 mg PO BREAKFAST Diuretic 04/19/15 [History Last Taken 07/22/19] metformin 1,000 mg tablet 500 mg PO BIDCM #1 TAB 04/20/15 [Rx Last Taken 07/23/19] metoprolol tartrate 25 mg tablet 12.5 mg PO BID #30 tabs 04/20/15 [Rx Last Taken 07/23/19] saxagliptin 5 mg tablet 5 mg PO BREAKFAST diabetes 07/23/19 [History Last Taken 07/23/19] aspirin 81 mg chewable tablet (Aspirin Childrens) 81 mg PO DAILY 05/26/22 [History Last Taken Unknown] Allergy/AdvReac Type Severity Reaction Status Date / Time polio vaccine AdvReac Other Uncoded 05/26/22 23:06 Family History Father Heart disease Surgical History H/O total hip arthroplasty History of removal of eye Social History Smoking Status: Never smoker alcohol intake: never ROS ROS ED ROS Narrative Denies recent illness. Review of Systems ROS Unobtainable: Denies due to encephalopathy Constitutional Constitutional ED: Denies chills or fever(s) Eyes Eyes: Denies blurry vision ENT ENT ED: Denies ear pain Cardiovascular Cardiovascular: Denies chest pain Respiratory/Chest Respiratory/Chest: Denies cough or dyspnea Gastrointestinal Gastrointestinal: Denies abdominal pain, diarrhea, nausea or vomiting Genitourinary Genitourinary ED: Denies dysuria Musculoskeletal Musculoskeletal: Denies arthralgias Integumentary Denies abscess Neurologic Neurologic: Denies headache(s) Psychiatric Psychiatric: Denies anxiety Endocrine Endocrinology: Denies polydipsia Hematologic/Lymphatic Hematologic/Lymphatic: Denies easy bleeding Allergic/Immunologic Allergic/Immunologic ED: Denies mouth swelling EXAM Physical Exam Narrative Exam Narrative: 82-year-old male no acute distress. Vital signs stable afebrile. Pulse ox 99% on room air no signs hypoxia. H EENT exam unremarkable. No facial droop. 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 Left eye extraocular motions are intact. No facial droop. Neck nontender. Lungs are clear. Heart irregularly irregular rate about 90-100. He does have a history of A. fib. Chest wall nontender. Abdomen soft nontender. Moving all 4 extremities. 5 out of 5 tip printer strength. Dorsi plantarflexion intact. Neurologically is awake. He knows the year and where he is at. His speech is a little thick but his said is much improved but not back to his baseline. His words are easily audible. He is putting them together appropriately. He has no motor deficits. His NIH score currently is 0. Const Vital Signs: 05/26/22 23:04 05/26/22 23:28 05/26/22 23:28 Temperature 97.4 F L Temperature Source Temporal Pulse Rate 89 91 Respiratory Rate 16 16 Blood Pressure 122/78 H 121/61 H Blood Pressure Mean 92 81 Pulse Ox 100 99 99 Oxygen Delivery Method Room Air Room Air Room Air 05/26/22 23:44 Temperature Temperature Source Pulse Rate 91 Respiratory Rate 16 Blood Pressure 121/67 H Blood Pressure Mean 85 Pulse Ox 99 Oxygen Delivery Method Room Air Positive well nourished and well developed; Negative for obese, cachectic, contractures or unkempt General Appearance ED: well developed and NAD; Negative for unkempt, cachectic or contractures Nutritional Appearance: Negative for cachectic or obese HEENT Reports moist mucous membranes atraumatic; Negative for trauma Nose: Negative for other Eyes PERRL and EOMs intact bilaterally Eyes Narrative: Right prosthesis. General Eye ED: Negative for scleral icterus Neck no lymphadenopathy, supple and no JVD General: Negative for tenderness Thyroid: Negative for other Chest Wall inspection of chest normal and palpation of chest normal Resp normal respiratory effort and clear to auscultation bilaterally Effort and Inspection: Negative for retractions Auscultation: Negative for rales, rhonchi or wheezes Cardio no murmurs Cardio Narrative: A. fib rate of 90-110. Rate: tachycardic; Negative for regular rate Rhythm: abnormal rhythm; Negative for regular rhythm GI normal to inspection, nondistended, normoactive bowel sounds, soft to palpation, non-tender, non-distended and no masses Inspection: Negative for abdominal distention Auscultation: normoactive bowel sounds Palpation: Negative for tender or guarding Back/Spine no CVA tenderness General Back: Negative for CVA tenderness Cervical Spine: Negative for cervical spine tenderness Thoracic Spine / Upper Back: Negative for thoracic spinal tenderness Lumbar Spine / Lower Back: Negative for lumbar spinal tenderness Extremity normal to inspection General Extremety ED: Negative for deformity, edema or tenderness General Extremity: Negative for deformity or edema Neuro oriented x3 Neuro Narrative: Awake alert and oriented. Very audible and coherent speech but slightly thickened. NIH 0. Sensorium / Orientation: alert, oriented to person, oriented to place and oriented to time; Negative for orientation impaired, confused, lethargic or stuporous Speech: Negative for speech normal Motor Exam: strength 5/5 throughout Psych mental status grossly normal Appearance: Negative for unkempt Attitude: No agitated Mood & Affect: Negative for depressed, anxious or tearful Attention / Concentration: Negative for other Skin no wounds General Skin Exam: Negative for jaundice Lesions: no lesions Rashes: no rashes Trauma: Negative for abrasion STROKE Vital Signs/Narrative: Vital Signs Temp Pulse Resp BP Pulse Ox O2 Del Method 05/26/22 23:44 91 16 121/67 H 99 Room Air 05/26/22 23:28 99 Room Air 05/26/22 23:28 91 16 121/61 H 99 Room Air 05/26/22 23:04 97.4 F L 89 16 122/78 H 100 Room Air Inital Vital Signs reviewed: Yes MDM MDM MDM Narrative Medical decision making narrative: 82-year-old who had a 30-minute episode at home with generalized weakness, sweating and difficulty with his speech. Exam is almost baseline. His NIH currently 0. He will undergo a stroke work-up. He will need to be admitted to the hospital. Patient will be treated with a liter of normal saline. This may be a stroke but he is currently not having any neurological symptoms. It could have been a TIA. It could be heat exhaustion or dehydration because he was working on cleaning the corn for hours versus other etiologies. Repeat exam at 12:05 AM patient doing well. He has been treated with IV fluids due to both to his acute kidney injury, dehydration and contrast CT. believes he is back to his baseline. This may have been heat exhaustion with dehydration he may have had a TIA. I will speak to the hospitalist about admission for further evaluation. Repeat NIH score is still 0. Lab Data Attestation: I reviewed the patient's lab results. Lab results narrative: CBC shows a white count 8. H&H of 13 and 43. Platelets of 163. Electrolytes show a gap of 7 and a BUN of 28 creatinine of 2. Glucose 139. Troponin 26. CT brain without contrast shows no acute abnormality per the radiologist. Awaiting CTA results. PT INR and PTT are unremarkable. Labs: Laboratory Results - last 24 hr 05/26/22 05/26/22 05/26/22 23:30 23:30 23:30 WBC 8.9 RBC 4.76 Hgb 13.9 Hct 43.4 MCV 91.2 MCH 29.2 MCHC 32.0 RDW Std Deviation 46.3 H RDW Coeff of Sasha 13.8 Plt Count 163 MPV 10.5 Immature Gran % (Auto) 0.300 Neut % (Auto) 80.5 H Lymph % (Auto) 11.3 L [place] % (Auto) 6.4 Eos % (Auto) 0.9 Baso % (Auto) 0.6 Absolute Neuts (auto) 7.2 Absolute Lymphs (auto) 1.01 Nucleated RBC % 0 PT 15.1 H INR 1.2 APTT 26.3 Sodium 144 Potassium 4.5 Chloride 110 H Carbon Dioxide 27.0 Anion Gap 7 BUN 28 H Creatinine 2.01 H Estim Creat Clear Calc 35.39 Est GFR (MDRD) Af Amer 41 L Est GFR (MDRD) Non-Af 34 L BUN/Creatinine Ratio 13.9 Glucose 139 H Calcium 9.5 Troponin I High Sens 26 POC Glucose 05/26/22 23:35 WBC RBC Hgb Hct MCV MCH MCHC RDW Std Deviation RDW Coeff of Sasha Plt Count MPV Immature Gran % (Auto) Neut % (Auto) Lymph % (Auto) [place] % (Auto) Eos % (Auto) Baso % (Auto) Absolute Neuts (auto) Absolute Lymphs (auto) Nucleated RBC % PT INR APTT Sodium Potassium Chloride Carbon Dioxide Anion Gap BUN Creatinine Estim Creat Clear Calc Est GFR (MDRD) Af Amer Est GFR (MDRD) Non-Af BUN/Creatinine Ratio Glucose Calcium Troponin I High Sens POC Glucose 143 H Radiography Diagnostic Testing: Chest x-ray, portable, single view interpreted by myself shows chronic increased interstitial markings similar to prior chest x-ray. Normal cardiac silhouette aortic knob. No acute infiltrate. Rhythm Strip Rhythm Strip: A-fib Rate: 113 Ectopy: None EKG Initial EKG: Attestation: I personally reviewed and interpreted this EKG as follows: Interpretation: No Acute Injury Pattern and Atrial Fibrillation Comments: Atrial fibrillation rate of 113. No signs of CT or ischemia. History of chronic A. fib. Discharge Plan Triage Chief Complaint: Neuro S/Sx ED Provider: Jeremy Aburto Dx/Rx/DC Orders Clinical Impression: Slurred speech, Chronic a-fib, History of diabetes mellitus, History of chronic kidney disease, Acute kidney injury, Acute dehydration, Heat exhaustion Prescriptions: No Action simvastatin 10 MG tablet 10 mg PO QHS Label Comments: Cholesterol tamsulosin 0.4 MG capsule 0.4 mg PO QHS Label Comments: Prostate finasteride 5 MG tablet 5 mg PO QHS Label Comments: Prostate furosemide 20 MG tablet 10 mg PO BREAKFAST Label Comments: diuertic metoprolol tartrate 25 MG tablet 12.5 mg PO BID Qty: 30 0RF Label Comments: blood pressure metformin 1,000 MG tablet 500 mg PO BIDCM Qty: 1 0RF Label Comments: diabetes saxagliptin 5 mg tablet 5 mg PO BREAKFAST aspirin [Aspirin Childrens] 81 mg Tablet,Chewable 81 mg PO DAILY Primary Care Provider: Martha Orr Referrals: Martha Orr DO [Primary Care Provider] -
--- NOTE | 2022-05-26 23:43 | RAD_ITS ---
STUDY: X-RAY CHEST REASON FOR EXAM: Male, 82 years old. Neuro deficit, acute, stroke suspected TECHNIQUE: Single AP portable view of the chest. COMPARISON: 07/23/2019 FINDINGS: Stable chronic changes in the lung bases The lungs are clear and expanded. There is no demonstrated pleural abnormality. Normal size heart. Normal mediastinum and daniel. Normal visualized pulmonary arteries. Normal visualized aortic arch and descending thoracic aorta. Normal visualized thoracic spine. Normal visualized ribs, clavicles, and shoulders. There is no demonstrated abnormality of the visualized soft tissue structures of the upper abdomen. RAD/Chest 1 View IMPRESSION: No acute findings Electronically Signed: Mp Gauthier DO at 0:30 EDT ,
[2022-05-26 23:44] VITALS: BP 121/67; PULSE 91; RESP 16; O2SAT 99
[2022-05-26 23:50] LABS: International Normalized Ratio 1.2; Partial Thromboplast Time 26.3 Seconds (24.1-36.2); Prothrombin Time (Protime)PT. 15.1 SECONDS (11.7-14.9)
[2022-05-26 23:56] LABS: Bedside Glucose 143 mg/dL (74-106)
[2022-05-26] MEDS: 0.9% Normal Saline 1,000 ML 999 ML IV (23:57)
[2022-05-27] VITALS (12 sets, daily range): BP systolic 111–150; BP diastolic 61–112; PULSE 89–121; RESP 16–25; TEMP 36–36.9; O2SAT 97–100; BMI 30.3
[2022-05-27] LABS: Anion Gap 7 (5-15); BUN 28 mg/dL (7-18); BUN/Creat Ratio 13.9 RATIO (10-20); Calcium,Total 9.5 mg/dL (8.5-10.1); Chloride 110 mmol/L (98-107); Creatinine, Serum 2.01 mg/dL (0.70-1.30); EST Glomerular Filtration Rate 34 mL/min (>60); Est Glom Filt Rate - Afr Amer 41 mL/min (>60); Estimated Creatinine Clearance 35.39 ml/min; Glucose 139 mg/dL (74-106); Potassium 4.5 mmol/L (3.5-5.1); Sodium Level 144 mmol/L (136-145); Troponin-I HS 26 pg/mL (3.0-78.0)
--- NOTE | 2022-05-27 00:26 | HP.PCM_ITS ---
HPI - General General Date of Admission: 05/27/22 Date of Service: 05/27/22 Chief Complaint: stroke symptoms/aphasia HPI Narrative KASSI BROTHERS, is a 82 M who presents to the emergency room with chief complaint of aphasia. Patient has been processing corn approximately 5-6 bushels today in the heat in preparation for the coming year when he suddenly became fatigued and was unable to speak. The patient had no left or right sided weakness and denies headache. Patient denies any chest pain shortness of breath fever chills nausea vomiting or diarrhea. He does have a significant past medical history of atrial fibrillation and is not on full anticoagulation due to history of GI bleed. He does however take aspirin daily. CT scan of the head is negative for acute intracranial hemorrhage. Patient does have a creatinine increased to 2.0 from his baseline of 1.4 which is indicative of acute kidney injury. His speech is mostly normal at this point and he feels as if he has recovered. Patient will be admitted overnight for observation to rule out stroke. [facility] Medical History BPH (benign prostatic hyperplasia) Chronic kidney disease History of deep venous thrombosis HTN (hypertension) Hyperlipidemia Lymphedema New onset atrial fibrillation Obesity Pulmonary embolism Type 2 diabetes mellitus without complications Home Medications finasteride 5 mg tablet 5 mg PO QHS Prostate 10/17/14 [History Last Taken 07/22/19] simvastatin 10 mg tablet 10 mg PO QHS cholesterol 10/17/14 [History Last Taken 07/23/19] tamsulosin 0.4 mg capsule 0.4 mg PO QHS Prostate 10/17/14 [History Last Taken 07/22/19] furosemide 20 mg tablet 10 mg PO BREAKFAST Diuretic 04/19/15 [History Last Taken 07/22/19] metformin 1,000 mg tablet 500 mg PO BIDCM #1 TAB 04/20/15 [Rx Last Taken 07/23/19] metoprolol tartrate 25 mg tablet 12.5 mg PO BID #30 tabs 04/20/15 [Rx Last Taken 07/23/19] saxagliptin 5 mg tablet 5 mg PO BREAKFAST diabetes 07/23/19 [History Last Taken 07/23/19] aspirin 81 mg chewable tablet (Aspirin Childrens) 81 mg PO DAILY 05/26/22 [History Last Taken Unknown] Allergy/AdvReac Type Severity Reaction Status Date / Time polio vaccine AdvReac Other Uncoded 05/26/22 23:06 Family History Father Heart disease Surgical History H/O total hip arthroplasty History of removal of eye Social History Smoking Status: Never smoker alcohol intake: never ROS Constitutional Constitutional: Denies chills or fever(s) Eyes Eyes: Denies change in vision ENT HEENT: Denies abnormal hearing Cardiovascular Cardiovascular: Denies chest pain Respiratory/Chest Respiratory/Chest: Denies shortness of breath at rest Gastrointestinal Gastrointestinal: Denies abdominal pain Genitourinary Genitourinary: Denies dysuria Musculoskeletal Musculoskeletal: Denies back pain Integumentary Integumentary: Denies dry skin Neurologic Neurologic: Reports abnormal speech and dizziness; Denies abnormal gait or confusion Psychiatric Psychiatric: Denies anxiety Vital Signs Vital Signs Vital Signs: 05/26/22 23:04 05/26/22 23:28 05/26/22 23:28 Temperature 97.4 F L Temperature Source Temporal Pulse Rate 89 91 Respiratory Rate 16 16 Blood Pressure 122/78 H 121/61 H Blood Pressure Mean 92 81 Pulse Ox 100 99 99 Oxygen Delivery Method Room Air Room Air Room Air 05/26/22 23:44 05/27/22 00:02 05/27/22 00:04 Temperature Temperature Source Pulse Rate 91 121 H 101 H Respiratory Rate 16 25 H 18 Blood Pressure 121/67 H 121/61 H 121/61 H Blood Pressure Mean 85 81 81 Pulse Ox 99 100 98 Oxygen Delivery Method Room Air Room Air Room Air 05/27/22 00:12 Temperature 96.8 F L Temperature Source Temporal Pulse Rate 94 Respiratory Rate 18 Blood Pressure 135/82 H Blood Pressure Mean 99 Pulse Ox 99 Oxygen Delivery Method Room Air Weight Weight: 241 lb 13.553 oz Body Mass Index (BMI) 29.4 Physical Exam Const oriented x3 General Appearance: cooperative and well developed HEENT normocephalic and head/scalp atraumatic Eyes PERRL and EOMs intact bilaterally Resp normal respiratory effort, normal air movement and clear to auscultation bilaterally Cardio S1 normal heart sound, S2 normal heart sound and no murmurs Rhythm: abnormal rhythm irregularly irregular GI normal to inspection, nondistended, normoactive bowel sounds Extremity normal capillary refill Skin General Skin Exam: no breakdown Neuro CN's II-XII intact bilaterally Psych thought process normal, cooperative and affect normal Results Lab / Micro Data Result Diagrams: 05/26/22 23:30 05/26/22 23:30 Labs: Laboratory Results - last 24 hr 05/26/22 23:30: WBC 8.9, RBC 4.76, Hgb 13.9, Hct 43.4, MCV 91.2, MCH 29.2, MCHC 32.0, RDW Std Deviation 46.3 H, RDW Coeff of Sasha 13.8, Plt Count 163, MPV 10.5, Immature Gran % (Auto) 0.300, Neut % (Auto) 80.5 H, Lymph % (Auto) 11.3 L, [place] % (Auto) 6.4, Eos % (Auto) 0.9, Baso % (Auto) 0.6, Absolute Neuts (auto) 7.2, Absolute Lymphs (auto) 1.01, Nucleated RBC % 0 05/26/22 23:30: PT 15.1 H, INR 1.2, APTT 26.3 05/26/22 23:30: Sodium 144, Potassium 4.5, Chloride 110 H, Carbon Dioxide 27.0, Anion Gap 7, BUN 28 H, Creatinine 2.01 H, Estim Creat Clear Calc 35.39, Est GFR (MDRD) Af Amer 41 L, Est GFR (MDRD) Non-Af 34 L, BUN/Creatinine Ratio 13.9, Glucose 139 H, Calcium 9.5, Troponin I High Sens 26 05/26/22 23:35: POC Glucose 143 H Rhythm Strip Rhythm Strip: A-fib Rate: 113 Ectopy: None Radiology Impression Brain CT 05/26/22 23:22 IMPRESSION: Chronic involutional changes of the brain. N.B. : The above Results were Read Back by Mp Gauthier DO to Dr. Lamonte MD, and understanding confirmed on 05/27/2022 00:02:51 (ET). Electronically Signed: Mp Gauthier DO at 0:04 EDT Reading Location ID and State: [facility] / [place] Tel , Service support , ADDENDUM: 05/27/22 0010 IMPRESSION: Chronic involutional changes of the brain. N.B. : The above Results were Read Back by Mp Gauthier DO to Dr. Lamonte MD, and understanding confirmed on 05/27/2022 00:02:51 (ET). Electronically Signed: Mp Gauthier DO at 0:04 EDT Reading Location ID and State: [address] [place] [address] Tel , Service support , Head/Neck CTA 05/26/22 23:22 IMPRESSION: Normal CTA Head and neck with contrast. N.B. : The above Results were Read Back by Mp Gauthier DO to Dr. Lamonte MD, and understanding confirmed on 05/27/2022 00:21:18 (ET). Electronically Signed: Mp Gauthier DO at 0:22 EDT Reading Location ID and State: [facility] / [place] Tel , Service support , Assessment & Plan Assessment/Plan (1) Slurred speech: (2) Chronic a-fib: (3) History of diabetes mellitus: (4) Acute kidney injury: (5) Hyperlipidemia: QUALIFIERS: Hyperlipidemia type: pure hypercholesterolemia Qualified Code(s): E78.00 - Pure hypercholesterolemia, unspecified; E78.0 - Pure hypercholesterolemia PLAN: Plan 1 aphasia/rule out CVA?admit patient to progressive care unit initiate neurochecks every 4 hours continue aspirin therapy, order MRI of brain in the morning 2. Acute kidney injury?IV fluids at 75 cc an hour normal saline repeat BMP in the morning 3. Diabetes?continue home current medications 4. Atrial fibrillation?rate controlled continue home medications and aspirin as above 5. DVT prophylaxis?SCDs Charges/Coding Visit Charges OBSV E&M: 07104 Initial observation care L2
--- NOTE | 2022-05-27 00:42 | MRI_ITS ---
STUDY: MRI BRAIN WITHOUT CONTRAST REASON FOR EXAM: Male, 82 years old. cva TECHNIQUE: Standardized multiplanar fat and water weighted pulse sequences were obtained. COMPARISON: 02/15/2018. FINDINGS: No evidence of restricted diffusion is visualized, the ADC map is unremarkable. No areas of signal dropout visualized on the gradient echo sequence. No evidence of parenchymal hemorrhages or contusions. No evidence of intra or extra-axial fluid collection is seen. Unremarkable size of the ventricles and extra-axial spaces for the patient''s age. Scattered areas of T2 prolongation visualized in the periventricular and subcortical white matter suggestive of for chronic microvascular disease unremarkable for the patient''s age. Normal bilateral basal ganglia. Normal thalami. There is no extra-axial fluid accumulation. Normal flow voids within the major intracranial circulation suggesting patency by spin echo criteria. Normal sella turcica, pituitary gland, infundibular stalk, optic chiasm and hypothalamus. Normal tectal plate and pineal gland. Normal midbrain, tony and medulla. Normal cerebellum. Normal basal cisterns. Normal bilateral temporal bones. Normal bilateral internal auditory canals. The left globe is unremarkable. Postoperative changes visualized in the right orbit.. Normal visualized paranasal sinuses. Normal calvarium and skull base. Normal visualized soft tissue structures. Normal visualized upper cervical spine. MRI/Brain without Contrast IMPRESSION: No evidence of acute intracranial pathology is seen. Electronically Signed: Dmitriy Rogers MD at 10:26 EDT ,
--- NOTE | 2022-05-27 01:18 | ED.RN ---
pt reported did not take my blood pressure medicine tonight Dr. Aburto aware of bp 145/100.
[2022-05-27] MEDS: 0.9% Normal Saline 1,000 ML 100 ML IV (02:09)
[2022-05-27] MEDS: 0.9% Saline Lock 10 ML Syringe IV (02:25)
[2022-05-27 07:00] LABS: Anion Gap 8 (5-15); BUN 25 mg/dL (7-18); BUN/Creat Ratio 18.5 RATIO (10-20); Calcium,Total 8.8 mg/dL (8.5-10.1); Chloride 108 mmol/L (98-107); Cholesterol 91 mg/dL (200); Creatinine, Serum 1.35 mg/dL (0.70-1.30); EST Glomerular Filtration Rate 54 mL/min (>60); Est Glom Filt Rate - Afr Amer 65 mL/min (>60); Estimated Creatinine Clearance 52.69 ml/min; Glucose 108 mg/dL (74-106); High Density Lipoprotein 42 mg/dL; Potassium 4.1 mmol/L (3.5-5.1); Sodium Level 143 mmol/L (136-145); Triglycerides 32 mg/dL; Very Low Density Lipoprotein 6 mg/dL (5-40)
[2022-05-27] MEDS: Metoprolol Tartrate 25 MG Tablet 12.5 MG PO (11:04)
[2022-05-27] MEDS: LINAGLIPTIN 5 MG TABLET PO (11:04)
[2022-05-27] MEDS: Aspirin 81 MG TAB.CHEW PO (11:04)
--- NOTE | 2022-05-27 11:36 | DCINST_ITS ---
Discharge Instructions Diet Discharge Diet: Low fat / Low cholesterol Activity Discharge Activity: Return to Normal Activity Dressing / Incision Call your doctor if you observe: Numbness or Tingling, Shortness of breath, Dizziness and Chest pain Follow Up Care Test Results: Test results from this visit will be discussed in further detail at your follow- up appointment, if applicable. Discharge Plan Admission Admit Date/Time: 05/27/22 00:37 Primary Reason for Your Visit: TIA Attending Provider: Ellis Benítez Primary Care Provider: Martha Orr Consulting Providers: Torito Smith Discharge Orders/Prescriptions Prescriptions: Continued simvastatin 10 MG tablet 10 mg PO QHS Label Comments: Cholesterol tamsulosin 0.4 MG capsule 0.4 mg PO QHS Label Comments: Prostate finasteride 5 MG tablet 5 mg PO QHS Label Comments: Prostate furosemide 20 MG tablet 10 mg PO BREAKFAST Label Comments: diuertic metoprolol tartrate 25 MG tablet 12.5 mg PO BID Qty: 30 0RF Label Comments: blood pressure metformin 1,000 MG tablet 500 mg PO BIDCM Qty: 1 0RF Label Comments: diabetes saxagliptin 5 mg tablet 5 mg PO BREAKFAST aspirin [Aspirin Childrens] 81 mg Tablet,Chewable 81 mg PO DAILY Referrals / Follow Up: Martha Orr DO [Primary Care Provider] - In 1 Week Disposition Disposition (needs filled in before D/C Order can be placed): Home, Self Care
--- NOTE | 2022-05-27 11:42 | DS.PCM_ITS ---
Documented by User: Yuki Mcintosh NP, [employer] 05/27/22 11:55 Providers Date of Admission: 05/27/22 Date of Discharge: 05/27/22 Primary Care Physician: Dr. Martha Orr DO Reason For Visit: POSSIBLE TIA Diagnosis Discharge Diagnosis (1) Slurred speech: Status: Acute Code(s): R47.81 - Slurred speech (2) Chronic a-fib: Status: Chronic Code(s): I48.20 - Chronic atrial fibrillation, unspecified (3) History of diabetes mellitus: Status: Acute Code(s): Z86.39 - Personal history of other endocrine, nutritional and metabolic disease (4) Acute kidney injury: Status: Acute Code(s): N17.9 - Acute kidney failure, unspecified (5) Hyperlipidemia: Status: Chronic Code(s): E78.5 - Hyperlipidemia, unspecified Qualifiers: Hyperlipidemia type: pure hypercholesterolemia Qualified Code(s): E78.00 - Pure hypercholesterolemia, unspecified; E78.0 - Pure hypercholester olemia Medications at Discharge Home Medications finasteride 5 mg tablet 5 mg PO QHS Prostate 10/17/14 simvastatin 10 mg tablet 10 mg PO QHS cholesterol 10/17/14 tamsulosin 0.4 mg capsule 0.4 mg PO QHS Prostate 10/17/14 furosemide 20 mg tablet 10 mg PO BREAKFAST Diuretic 04/19/15 metformin 1,000 mg tablet 500 mg PO BIDCM #1 TAB 04/20/15 metoprolol tartrate 25 mg tablet 12.5 mg PO BID #30 tabs 04/20/15 saxagliptin 5 mg tablet 5 mg PO BREAKFAST diabetes 07/23/19 aspirin 81 mg chewable tablet (Aspirin Childrens) 81 mg PO DAILY 05/26/22 Hospital Course Operations None Procedures None Summary of Care Provided Hospital Course: Patient is an 82-year-old male admitted 05/27/22 due to speech difficulty. 1. Acute kidney injury on chronic kidney disease stage IIIa-acute kidney injury secondary to dehydration secondary to working in the heat for long hours. Acute kidney injury resolved. Encouraged staying hydrated while working outside. Follow-up with PCP in 1 week. 2. TIA versus related to heat exhaustion/SHARI-MRI negative for stroke. On aspirin, statin at baseline. No longer on anticoagulation for A. fib due to history of hematuria. Recommend reevaluating this as outpatient. 3. Type 2 diabetes mellitus-continue home regimen. 4. Paroxysmal atrial fibrillation-continue metoprolol. No longer on anticoagulation. No longer on anticoagulation due to history of hematuria. 5. 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 No longer on anticoagulation. 6. BPH-on Proscar, Flomax. Patient seen and examined prior to discharge. Physical assessment as noted below. Patient is stable for discharge with follow up recommendations as noted above. This patient was seen by MARY Garcia under the supervision of Dr. Benítez. Time spent examining patient, reviewing data and subsequent management of care: 26 minutes Physical Exam Const alert, oriented x3 and no apparent distress Orientation / Consciousness: awake, oriented to person, oriented to place and oriented to time HEENT normocephalic and moist oral mucous membranes Eyes PERRL, EOMs intact bilaterally and conjunctivae normal Neck no lymphadenopathy Resp normal respiratory effort and clear to auscultation bilaterally Cardio regular rate, regular rhythm and no murmurs Peripheral Pulses: pulses 2+ throughout GI normal to inspection, nondistended, normoactive bowel sounds, non-tender and non-distended Extremity normal to inspection Skin no rashes or lesions noted Lesions: no lesions Rashes: no rashes Trauma: no lacerations or abrasions Neuro CN's II-XII intact bilaterally, no focal motor deficits, no sensory deficits noted and deep tendon reflexes 2+ bilaterally Psych mental status grossly normal and affect normal Weight / BMI Weight Weight: 249 lb 1.957 oz Body Mass Index (BMI) 30.3 ABG / Lab / Microbiology Data Result Diagrams: 05/26/22 23:30 05/27/22 05:45 Laboratory: Laboratory Results - last 24 hr 05/26/22 23:30: WBC 8.9, RBC 4.76, Hgb 13.9, Hct 43.4, MCV 91.2, MCH 29.2, MCHC 32.0, RDW Std Deviation 46.3 H, RDW Coeff of Sasha 13.8, Plt Count 163, MPV 10.5, Immature Gran % (Auto) 0.300, Neut % (Auto) 80.5 H, Lymph % (Auto) 11.3 L, [place] % (Auto) 6.4, Eos % (Auto) 0.9, Baso % (Auto) 0.6, Absolute Neuts (auto) 7.2, Absolute Lymphs (auto) 1.01, Nucleated RBC % 0 05/26/22 23:30: PT 15.1 H, INR 1.2, APTT 26.3 05/26/22 23:30: Sodium 144, Potassium 4.5, Chloride 110 H, Carbon Dioxide 27.0, Anion Gap 7, BUN 28 H, Creatinine 2.01 H, Estim Creat Clear Calc 35.39, Est GFR (MDRD) Af Amer 41 L, Est GFR (MDRD) Non-Af 34 L, BUN/Creatinine Ratio 13.9, Glucose 139 H, Calcium 9.5, Troponin I High Sens 26 05/26/22 23:35: POC Glucose 143 H 05/27/22 05:45: Sodium 143, Potassium 4.1, Chloride 108 H, Carbon Dioxide 27.0, Anion Gap 8, BUN 25 H, Creatinine 1.35 H, Estim Creat Clear Calc 52.69, Est GFR (MDRD) Af Amer 65, Est GFR (MDRD) Non-Af 54 L, BUN/Creatinine Ratio 18.5, Glucose 108 H, Calcium 8.8, Triglycerides 32, Cholesterol 91, LDL Cholesterol 43, VLDL Cholesterol 6, HDL Cholesterol 42 Radiography Diagnostic Testing: Radiology Impression Brain CT 05/26/22 23:22 IMPRESSION: Chronic involutional changes of the brain. N.B. : The above Results were Read Back by Mp Gauthier DO to Dr. Lamonte MD, and understanding confirmed on 05/27/2022 00:02:51 (ET). Electronically Signed: Mp Gauthier DO at 0:04 EDT Reading Location ID and State: [address] [place] [address] Tel , Service support , ADDENDUM: 05/27/22 0010 IMPRESSION: Chronic involutional changes of the brain. N.B. : The above Results were Read Back by Mp Gauthier DO to Dr. Lamonte MD, and understanding confirmed on 05/27/2022 00:02:51 (ET). Electronically Signed: Mp Gauthier DO at 0:04 EDT Reading Location ID and State: [address] [place] [address] Tel , Service support , Head/Neck CTA 05/26/22 23:22 IMPRESSION: Normal CTA Head and neck with contrast. N.B. : The above Results were Read Back by Mp Gauthier DO to Dr. Lamonte MD, and understanding confirmed on 05/27/2022 00:21:18 (ET). Electronically Signed: Mp Gauthier DO at 0:22 EDT , ADDENDUM: 05/27/22 0029 IMPRESSION: Normal CTA Head and neck with contrast. N.B. : The above Results were Read Back by Mp Gauthier DO to Dr. Lamonte MD, and understanding confirmed on 05/27/2022 00:21:18 (ET). Electronically Signed: Mp Gauthier DO at 0:22 EDT , Chest X-Ray 05/26/22 23:43 IMPRESSION: No acute findings Electronically Signed: Mp Gauthier DO at 0:30 EDT , Brain MRI 05/27/22 00:42 IMPRESSION: No evidence of acute intracranial pathology is seen. Electronically Signed: Dmitriy Rogers MD at 10:26 EDT , D/C Instructions Discharge Diet: Low fat / Low cholesterol Call your doctor if you observe: Numbness or Tingling, Shortness of breath, Dizziness and Chest pain Meaningful Use Info Meaningful Use Diagnoses (Choose all that apply): None applicable Discharge Plan Admission Admit Date/Time: 05/27/22 00:37 Primary Reason for Your Visit: TIA Attending Provider: Ellis Benítez Primary Care Provider: Martha Orr Consulting Providers: Torito Smith Discharge Orders/Prescriptions Prescriptions: Continued simvastatin 10 MG tablet 10 mg PO QHS Label Comments: Cholesterol tamsulosin 0.4 MG capsule 0.4 mg PO QHS Label Comments: Prostate finasteride 5 MG tablet 5 mg PO QHS Label Comments: Prostate furosemide 20 MG tablet 10 mg PO BREAKFAST Label Comments: diuertic metoprolol tartrate 25 MG tablet 12.5 mg PO BID Qty: 30 0RF Label Comments: blood pressure metformin 1,000 MG tablet 500 mg PO BIDCM Qty: 1 0RF Label Comments: diabetes saxagliptin 5 mg tablet 5 mg PO BREAKFAST aspirin [Aspirin Childrens] 81 mg Tablet,Chewable 81 mg PO DAILY Referrals / Follow Up: Martha Orr DO [Primary Care Provider] - In 1 Week Disposition Disposition (needs filled in before D/C Order can be placed): Home, Self Care Documented by User: Dr. Ellis Benítez MD 05/27/22 14:40 Providers Date of Admission: 05/27/22 Reason For Visit: POSSIBLE TIA Diagnosis Discharge Diagnosis (1) Slurred speech: Status: Acute Code(s): R47.81 - Slurred speech (2) Chronic a-fib: Status: Chronic Code(s): I48.20 - Chronic atrial fibrillation, unspecified (3) History of diabetes mellitus: Status: Acute Code(s): Z86.39 - Personal history of other endocrine, nutritional and metabolic disease (4) Acute kidney injury: Status: Acute Code(s): N17.9 - Acute kidney failure, unspecified (5) Hyperlipidemia: Status: Chronic Code(s): E78.5 - Hyperlipidemia, unspecified Qualifiers: Hyperlipidemia type: pure hypercholesterolemia Qualified Code(s): E78.00 - Pure hypercholesterolemia, unspecified; E78.0 - Pure hypercholesterolemia Medications at Discharge Home Medications finasteride 5 mg tablet 5 mg PO QHS Prostate 10/17/14 simvastatin 10 mg tablet 10 mg PO QHS cholesterol 10/17/14 tamsulosin 0.4 mg capsule 0.4 mg PO QHS Prostate 10/17/14 furosemide 20 mg tablet 10 mg PO BREAKFAST Diuretic 04/19/15 metformin 1,000 mg tablet 500 mg PO BIDCM #1 TAB 04/20/15 metoprolol tartrate 25 mg tablet 12.5 mg PO BID #30 tabs 04/20/15 saxagliptin 5 mg tablet 5 mg PO BREAKFAST diabetes 07/23/19 aspirin 81 mg chewable tablet (Aspirin Childrens) 81 mg PO DAILY 05/26/22 ABG / Lab / Microbiology Data Result Diagrams: 05/26/22 23:30 05/27/22 05:45 Discharge Plan Admission Admit Date/Time: 05/27/22 00:37 Primary Reason for Your Visit: TIA Attending Provider: Ellis Benítez Primary Care Provider: Martha Orr Consulting Providers: Torito Smith Discharge Orders/Prescriptions Prescriptions: Continued simvastatin 10 MG tablet 10 mg PO QHS Label Comments: Cholesterol tamsulosin 0.4 MG capsule 0.4 mg PO QHS Label Comments: Prostate finasteride 5 MG tablet 5 mg PO QHS Label Comments: Prostate furosemide 20 MG tablet 10 mg PO BREAKFAST Label Comments: diuertic metoprolol tartrate 25 MG tablet 12.5 mg PO BID Qty: 30 0RF Label Comments: blood pressure metformin 1,000 MG tablet 500 mg PO BIDCM Qty: 1 0RF Label Comments: diabetes saxagliptin 5 mg tablet 5 mg PO BREAKFAST aspirin [Aspirin Childrens] 81 mg Tablet,Chewable 81 mg PO DAILY Referrals / Follow Up: Martha Orr DO [Primary Care Provider] - In 1 Week Disposition Disposition (needs filled in before D/C Order can be placed): Home, Self Care Charges/Coding Addendum Addendum: Addendum: Dr. Benítez I personally examined the patient and reviewed the chart. I agree with the above. 82-year-old male with a history of chronic A. fib not on anticoagulation secondary to history of GI bleed presents to the hospital with a TIA versus CVA. On my assessment today he states that he is back completely normal, MRI was unremarkable for stroke. He did not need any other discharge needs to discussed with him the plan for possible discharge today and expressed understanding of the risk benefits of going home and would like to go home today. He does unde rstand the risks of future strokes in the setting of A. fib since he cannot be fully anticoagulated. He did also have an SHARI secondary to working outside in the heat likely from dehydration, he was started on some IV fluids and his creatinine went from 2.01 down to 1.35. I do recommend that he follow-up with his PCP as an outpatient to obtain outpatient lab work to monitor this. Clinical time spent in all aspects of patient care including discharge plannin minutes Visit Charges OBSV E&M: 69734 Observation care discharge
--- NOTE | 2022-05-27 13:12 | PHA.DC.MR ---
Pharmacy Service has performed discharge medication reconciliation for this patient. The patient's discharge medication list was reviewed for discrepancies and discrepancies were resolved. Home Medications finasteride 5 mg tablet 5 mg PO QHS Prostate 10/17/14 simvastatin 10 mg tablet 10 mg PO QHS cholesterol 10/17/14 tamsulosin 0.4 mg capsule 0.4 mg PO QHS Prostate 10/17/14 furosemide 20 mg tablet 10 mg PO BREAKFAST Diuretic 04/19/15 metformin 1,000 mg tablet 500 mg PO BIDCM #1 TAB 04/20/15 metoprolol tartrate 25 mg tablet 12.5 mg PO BID #30 tabs 04/20/15 saxagliptin 5 mg tablet 5 mg PO BREAKFAST diabetes 07/23/19 aspirin 81 mg chewable tablet (Aspirin Childrens) 81 mg PO DAILY 05/26/22
[2022-05-27] MEDS: Metoprolol Tartrate 25 MG Tablet PO (13:13)
--- NOTE | 2022-05-27 14:24 | CASEMGMT ---
Pt declines need for HHC or OP therapy at discharge and states no further concerns with going home at time of discharge. Samaria DIAZ CM
--- NOTE | 2022-05-27 16:00 | CASEMGMT ---
Social Work Note SW did not complete PHQ-9 as pt's MRI is negative. Audrey Zaragoza COMMUNITY ORGANIZATION DIRECTOR, SUPERINTENDENT MEASUREMENT
== END 2022-05-27 11:39 | disposition home or self-care (01) ==
LOC: ED 23:34 → PCU 05-27 02:20
PROVIDERS: Admitting Provider Family Medicine; Emergency Provider Emergency Medicine; PCP Internal Medicine; Visit Provider Family Medicine
DX: R47.81 Slurred speech (principal); N17.9 Acute kidney failure, unspecified; E11.22 Type 2 diabetes mellitus with diabetic chronic kidney disease; I48.0 Paroxysmal atrial fibrillation; N18.31 Chronic kidney disease, stage 3a; R47.01 Aphasia; E86.0 Dehydration; Z79.82 Long term (current) use of aspirin; E78.00 Pure hypercholesterolemia, unspecified; I12.9 Hypertensive chronic kidney disease with stage 1 through stage 4 chronic kidney disease, or unspecified chronic kidney disease; Z79.899 Other long term (current) drug therapy; Z79.84 Long term (current) use of oral hypoglycemic drugs; Z86.718 Personal history of other venous thrombosis and embolism; Z86.711 Personal history of pulmonary embolism; N40.0 Benign prostatic hyperplasia without lower urinary tract symptoms; I89.0 Lymphedema, not elsewhere classified; R29.700 NIHSS score 0; E66.9 Obesity, unspecified; Z68.30 Body mass index [BMI] 30.0-30.9, adult
CPT/HCPCS: 36415; 70450; 70496; 70498; 70551; 71045; 80048; 80061; 82962; 84484; 85025; 85610; 85730; 93005; 94762; 96360; 96361; 97162; 97166; 99218; 99285; J7030; Q9967; A4216; G0378

== ENCOUNTER 2023-01-13 05:59 | Emergency (ER) | payer MEDICARE, SELFPAY ==
[2023-01-13 06:00] VITALS: BP 139/97; PULSE 78; RESP 20; TEMP 37; O2SAT 93; BMI 31.7
--- NOTE | 2023-01-13 06:04 | EDS_ITS ---
HPI History of Present Illness Chief Complaint: Nosebleed Informant: patient Onset/Context/Timing Onset: Hours (1) Context: Sudden Onset Timing: Continuous Quality: bleeding Location: R naris/nose Current Severity: Severe Maximum Severity: Severe Worsened by: nothing Relieved by: nothing Narrative Narrative: Patient states he was eating his cereal about an hour ago when he started spontaneously having a brisk right-sided nosebleed. He takes full dose aspirin daily and no other antiplatelet or anticoagulants although he has A-fib and history of PE, due to developing hematuria. Currently does not have bleeding from anywhere else, denies any recent illness or injury or any other obvious reason for having a nosebleed at this time. He denies any systemic symptoms with this, just very uncomfortable due to the blood and clots in his nose and mouth/throat. No vomiting. PFSH [facility] Medical History BPH (benign prostatic hyperplasia) Chronic a-fib Chronic kidney disease History of chronic kidney disease History of deep venous thrombosis History of diabetes mellitus HTN (hypertension) Hyperlipidemia Lymphedema New onset atrial fibrillation Obesity Pulmonary embolism Type 2 diabetes mellitus without complications Home Medications finasteride 5 mg tablet 5 mg PO QHS Prostate 10/17/14 [History Last Taken 07/22/19] simvastatin 10 mg tablet 10 mg PO QHS cholesterol 10/17/14 [History Last Taken 07/23/19] tamsulosin 0.4 mg capsule 0.4 mg PO QHS Prostate 10/17/14 [History Last Taken 07/22/19] furosemide 20 mg tablet 10 mg PO BREAKFAST Diuretic 04/19/15 [History Last Taken 07/22/19] metformin 1,000 mg tablet 500 mg PO BIDCM #1 TAB 04/20/15 [Rx Last Taken 07/23/19] metoprolol tartrate 25 mg tablet 12.5 mg PO BID #30 tabs 04/20/15 [Rx Last Taken 07/23/19] saxagliptin 5 mg tablet 5 mg PO BREAKFAST diabetes 07/23/19 [History Last Taken 07/23/19] Allergy/AdvReac Type Severity Reaction Status Date / Time polio vaccine AdvReac Other Uncoded 01/13/23 06:08 Family History Father Heart disease Surgical History H/O total hip arthroplasty History of removal of eye Social History Smoking Status: Never smoker alcohol intake: never ROS ROS ED Constitutional Constitutional ED: Denies chills or fever(s) Eyes Eyes: Denies change in vision or diplopia ENT ENT ED: Reports as per HPI and epistaxis; Denies sore throat Cardiovascular Cardiovascular: Reports other Details: Chronic intermittent lightheadedness no worse at this time ; Denies chest pain or palpitations Respiratory/Chest Respiratory/Chest: Denies cough or dyspnea Gastrointestinal Gastrointestinal: Denies abdominal pain, diarrhea, nausea or vomiting Genitourinary Genitourinary ED: Denies dysuria or hematuria Musculoskeletal Musculoskeletal: Denies back pain or neck pain Integumentary Denies abscess or rash Neurologic Neurologic: Denies headache(s), paresthesias or weakness Psychiatric Psychiatric: Denies anxiety or suicidal thoughts EXAM Physical Exam Const Vital Signs: 01/13/23 06:00 Temperature 98.6 F Temperature Source Temporal Pulse Rate 78 Respiratory Rate 20 H Blood Pressure 139/97 H Blood Pressure Mean 111 Pulse Ox 93 Positive well nourished and well developed General Appearance ED: well developed and NAD HEENT Reports moist mucous membranes HEENT Narrative: Dark red venous brisk oozing right nostril even with nasal clip in place from nursing. Patient uncomfortable but in no distress, breathing through his mouth. Limited view of his posterior oropharynx, no obvious heavy bleeding. Normal voice without stridor. normocephalic and atraumatic Eyes PERRL and EOMs intact bilaterally Neck full ROM and supple Resp normal respiratory effort and clear to auscultation bilaterally Cardio regular rate, regular rhythm and no murmurs Extremity normal to inspection General Extremety ED: Yes edema; Negative for pulses abnormal or tenderness General Extremity: edema bilateral lower extremity Details: mild; Negative for pulses abnormal Neuro oriented x3, CN's II-XII intact bilaterally and no sensory deficits noted Sensorium / Orientation: awake and alert Motor Exam: strength 5/5 throughout Psych Mood & Affect: anxious Skin no rashes or lesions noted and no wounds MDM MDM MDM Narrative Medical decision making narrative: See the procedure note. We were able to cauterize what appeared to be the culprit areas. Patient had no recurrent bleeding after being observed in the ED for another 30 minutes, and was stable for discharge home. We did check his blood counts, more as a baseline I do not think he had significant blood loss since he was only bleeding for an hour or 2. Vital signs are stable, ENT follow-up or return if worse. No need for him to discontinue his aspirin. Lab Data Attestation: I reviewed the patient's lab results. Labs: Laboratory Results - last 24 hr 01/13/23 06:25 WBC 7.6 RBC 4.72 Hgb 14.1 Hct 46.1 MCV 97.7 H MCH 29.9 MCHC 30.6 L RDW Std Deviation 49.1 H RDW Coeff of Sasha 13.6 Plt Count 167 MPV 11.3 Procedures Other Procedures Procedure(s): Epistaxis care: [place] mix was prepared, and at that time we had the patient take the clip off of his nose which was helping temporarily, evacuate the nasal cavity by blowing repeatedly, he was able to blow out all the clots, and then instilled 3 cc of [place] mix with atomizer into the right nostril, he was able to taste that in his mouth, followed by placing a cotton ball soaked in same medication into the left nostril and replacing the nasal clip. Good hemostasis was obtained, on inspection of the posterior oropharynx, it is clear. In reevaluation after 10 to 15 minutes, removing the pledget there is no further bleeding, there is one papule at the septum/Asim box plexus that was clearly recently bleeding, and 2 other smaller areas nearby that may have been. These were all cauterized superficially with silver nitrate, there was no recurrent bleeding. Tolerated well no complications. Discharge Plan Triage Chief Complaint: Nosebleed ED Provider: Jack Joe Dx/Rx/DC Orders Clinical Impression: Acute anterior epistaxis Instructions: ED Epistaxis (Adult) Prescriptions: Continued simvastatin 10 MG tablet 10 mg PO QHS Label Comments: Cholesterol tamsulosin 0.4 MG capsule 0.4 mg PO QHS Label Comments: Prostate finasteride 5 MG tablet 5 mg PO QHS Label Comments: Prostate furosemide 20 MG tablet 10 mg PO BREAKFAST Label Comments: diuertic metoprolol tartrate 25 MG tablet 12.5 mg PO BID Qty: 30 0RF Label Comments: blood pressure metformin 1,000 MG tablet 500 mg PO BIDCM Qty: 1 0RF Label Comments: diabetes saxagliptin 5 mg tablet 5 mg PO BREAKFAST Primary Care Provider: Martha Orr Referrals: Martha Orr DO [Primary Care Provider] - Avtar Ruvalcaba MD [Med Staff - Active Staff] - As Needed Disposition Disposition: Home, Self Care
[2023-01-13] MEDS: Mixture 30 ML Bottle TOPICAL (06:18)
[2023-01-13 06:44] LABS: Hematocrit 46.1 % (40-54); Hemoglobin 14.1 g/dL (13.0-16.5); Mean Corp Hgb Conc 30.6 g/dL (32-36); Mean Corpuscular Hgb 29.9 pg (27.0-32.0); Mean Corpuscular Volume 97.7 fL (80-94); Mean Platelet Vol. 11.3 fl (6.2-12.0); Platelet Count 167 K/mm3 (150-450); RBC Distribution Width CV 13.6 % (11.6-14.6); RBC Distribution Width SD 49.1 fl (35.1-43.9); Red Blood Count 4.72 M/mm3 (4.6-6.2); White Blood Count 7.6 K/mm3 (4.4-11.0)
[2023-01-13] MEDS: Silver Nitrate (BKC) 1 EACH TOPICAL (07:03)
== END 2023-01-13 07:12 | disposition home or self-care (01) ==
PROVIDERS: Emergency Provider Emergency Medicine; PCP Internal Medicine; Visit Provider Emergency Medicine
DX: R04.0 Epistaxis (principal); E11.22 Type 2 diabetes mellitus with diabetic chronic kidney disease; I48.20 Chronic atrial fibrillation, unspecified; N18.9 Chronic kidney disease, unspecified; I12.9 Hypertensive chronic kidney disease with stage 1 through stage 4 chronic kidney disease, or unspecified chronic kidney disease; E78.5 Hyperlipidemia, unspecified; N40.0 Benign prostatic hyperplasia without lower urinary tract symptoms; Z86.711 Personal history of pulmonary embolism; Z79.84 Long term (current) use of oral hypoglycemic drugs; Z79.899 Other long term (current) drug therapy
CPT/HCPCS: 30901; 85027; 99282

== ENCOUNTER 2023-01-21 05:37 | Emergency (ER) | payer MEDICARE, SELFPAY ==
[2023-01-21 05:38] VITALS: BP 132/72; PULSE 74; RESP 22; TEMP 36.3; O2SAT 99; BMI 32.8
--- NOTE | 2023-01-21 06:04 | EDS_ITS ---
HPI History of Present Illness Chief Complaint: Shortness of Breath Informant: patient Onset/Context/Timing Onset: Today Context: gradual Timing: Intermittent Quality: Positive for Dyspnea on exertion Worsened by: Exertion Relieved by: Rest Associated Symptoms Negative for cough, rhinorrhea, post nasal drip, ear pain, fever, sore throat, chills or sweats Narrative Narrative: Patient presents with shortness of breath that has been getting worse over the past week. Patient states became worse today. Patient states when he was at home and ambulating his pulse ox dropped to 66% on room air. states his heart rate dropped to 56 when this occurred. Patient states it gets better with rest. Patient denies any cough. Patient denies any fevers or chills. Patient denies any sore throat or rhinorrhea. Patient denies any chest pain. PE Risk Factors: Negative for Cancer, OCP + Smoking + > 35, Prior DVT or PE, Recent immobilization, Recent surgery or Recent travel [facility] Medical History BPH (benign prostatic hyperplasia) Chronic a-fib Chronic kidney disease History of chronic kidney disease History of deep venous thrombosis History of diabetes mellitus HTN (hypertension) Hyperlipidemia Lymphedema New onset atrial fibrillation Obesity Pulmonary embolism Type 2 diabetes mellitus without complications Home Medications finasteride 5 mg tablet 5 mg PO QHS Prostate 10/17/14 [History Last Taken 07/22/19] simvastatin 10 mg tablet 10 mg PO QHS cholesterol 10/17/14 [History Last Taken 07/23/19] tamsulosin 0.4 mg capsule 0.4 mg PO QHS Prostate 10/17/14 [History Last Taken 07/22/19] furosemide 20 mg tablet 10 mg PO BREAKFAST Diuretic 04/19/15 [History Last Taken 07/22/19] metformin 1,000 mg tablet 500 mg PO BIDCM #1 TAB 04/20/15 [Rx Last Taken 07/23/19] metoprolol tartrate 25 mg tablet 12.5 mg PO BID #30 tabs 04/20/15 [Rx Last Taken 07/23/19] saxagliptin 5 mg tablet 5 mg PO BREAKFAST diabetes 07/23/19 [History Last Taken 07/23/19] Allergy/AdvReac Type Severity Reaction Status Date / Time polio vaccine AdvReac Other Uncoded 01/21/23 05:41 Family History Father Heart disease Surgical History H/O total hip arthroplasty History of removal of eye Social History Smoking Status: Never smoker alcohol intake: never ROS ROS ED Constitutional Constitutional ED: Denies chills or fever(s) Eyes Eyes: Denies blurry vision or change in vision ENT ENT ED: Denies rhinorrhea or sore throat Cardiovascular Cardiovascular: Denies chest pain or palpitations Respiratory/Chest Respiratory/Chest: Reports dyspnea; Denies cough Gastrointestinal Gastrointestinal: Denies nausea or vomiting Genitourinary Genitourinary ED: Denies dysuria or hematuria Musculoskeletal Musculoskeletal: Denies back pain or neck pain Integumentary Denies abscess or rash Neurologic Neurologic: Denies headache(s) or weakness Allergic/Immunologic Allergic/Immunologic ED: Denies mouth swelling or urticaria EXAM Physical Exam Const Vital Signs: 01/21/23 05:38 Temperature 97.4 F L Temperature Source Temporal Pulse Rate 74 Respiratory Rate 22 H Blood Pressure 132/72 H Blood Pressure Mean 92 Pulse Ox 99 Oxygen Delivery Method Room Air Positive well nourished and well developed General Appearance ED: well developed HEENT Reports moist mucous membranes Neck supple and no JVD Resp normal respiratory effort Auscultation: diminished lung sounds Cardio regular rate and no murmurs Rhythm: abnormal rhythm irregularly irregular GI normal to inspection, nondistended, normoactive bowel sounds and non-tender Palpation: soft Extremity normal to inspection General Extremety ED: Yes edema; Negative for tenderness General Extremity: edema bilateral lower extremity Details: trace Neuro oriented x3, CN's II-XII intact bilaterally and no sensory deficits noted Sensorium / Orientation: alert Motor Exam: strength 5/5 throughout Psych mental status grossly normal Skin no rashes or lesions noted MDM MDM MDM Narrative Medical decision making narrative: Differential diagnosis includes cardiac ischemia, cardiac dysrhythmia, pneumonia, pulmonary embolism, congestive heart failure, viral upper respiratory infection, COVID infection, and influenza infection. Chest x-ray will be obtained to assess for pneumonia and congestive heart failure. EKG will be obtained to assess for cardiac dysrhythmia and cardiac ischemia. CBC will be obtained to assess for leukocytosis and anemia. Basic metabolic profile will be obtained to assess for electrolyte abnormality and renal function. High- sensitivity troponin will be obtained to assess for cardiac ischemia. D-dimer will be obtained to assess for pulmonary embolism. BNP will be obtained to assess for congestive heart failure. History & Record Review Additional record(s) reviewed:: Prior labs Lab Data Attestation: I reviewed the patient's lab results. Lab results narrative: CBC was reviewed and was within normal limits. Basic metabolic profile was reviewed. Creatinine was 1.36 and BUN was slightly elevated at 25. These are consistent with prior results. D-dimer was reviewed and was normal for his age at 0.57. High-sensitivity troponin was reviewed and was normal at 19. BNP was mildly elevated at 262.5. Labs: Laboratory Results - last 24 hr 01/21/23 01/21/23 01/21/23 05:45 05:45 05:45 WBC 5.2 RBC 4.54 L Hgb 13.5 Hct 43.3 MCV 95.4 H MCH 29.7 MCHC 31.2 L RDW Std Deviation 48.9 H RDW Coeff of Sasha 13.9 Plt Count 159 MPV 11.0 Immature Gran % (Auto) 0.200 Neut % (Auto) 64.9 Lymph % (Auto) 22.2 Dougherty % (Auto) 6.9 Eos % (Auto) 4.8 Baso % (Auto) 1.0 Absolute Neuts (auto) 3.4 Absolute Lymphs (auto) 1.15 Nucleated RBC % 0 D-Dimer Quant (PE/DVT) 0.57 H* Sodium 141 Potassium 4.2 Chloride 106 Carbon Dioxide 31.0 Anion Gap 4 L BUN 25 H Creatinine 1.36 H Estim Creat Clear Calc 52.30 Est GFR (MDRD) Af Amer 65 Est GFR (MDRD) Non-Af 53 L BUN/Creatinine Ratio 18.4 Glucose 166 H Calcium 8.9 Troponin I High Sens 19 B-Natriuretic Peptide 01/21/23 05:45 WBC RBC Hgb Hct MCV MCH MCHC RDW Std Deviation RDW Coeff of Sasha Plt Count MPV Immature Gran % (Auto) Neut % (Auto) Lymph % (Auto) Dougherty % (Auto) Eos % (Auto) Baso % (Auto) Absolute Neuts (auto) Absolute Lymphs (auto) Nucleated RBC % D-Dimer Quant (PE/DVT) Sodium Potassium Chloride Carbon Dioxide Anion Gap BUN Creatinine Estim Creat Clear Calc Est GFR (MDRD) Af Amer Est GFR (MDRD) Non-Af BUN/Creatinine Ratio Glucose Calcium Troponin I High Sens B-Natriuretic Peptide 262.5 H Radiography Diagnostic Testing: Clinical Impression(s) from Imaging Studies Chest X-Ray 01/21/23 06:08 IMPRESSION: Bibasilar interstitial lung disease. Borderline cardiomegaly. Electronically Signed: Srini Callejas MD at 7:26 EDT , Portable 1 view chest x-ray was obtained. On my independent interpretation, lung osorio show bibasilar interstitial lung disease. There is borderline cardiomegaly. Bony thorax is normal. There is no acute process noted. Radiologist also interpreted the x-ray and agrees. EKG Initial EKG: Attestation: I personally reviewed and interpreted this EKG as follows: Interpretation: Atrial Fibrillation (73) and Non-Specific ST Changes Comments: EKG was obtained. On my independent interpretation, there is atrial fibrillation with a rate of 73. QRS interval and QTc intervals are within normal limits. There is left axis deviation at -37. There are nonspecific ST-T wave changes. There are no acute changes compared to previous EKG dated 05/27/2022. Prior EKG tracings: available for review Prior: Unchanged (05/27/2022) Treatment and Re-Evaluation :: Patient had a pulse oximeter reading of 99% on room air here in the emergency department. Patient will be ambulated on room air with a pulse oximeter to see if this drops. Patient was able to ambulate and maintain the oxygen saturation above 90%. Patient is able to be discharged home. Patient was instructed to follow-up with his primary care physician in 5 to 7 days. Patient understood and was agreeable with the plan. All questions were answered. Discharge Plan Triage Chief Complaint: Shortness of Breath ED Provider: Jean Pettit Dx/Rx/DC Orders Clinical Impression: Dyspnea, Type 2 diabetes mellitus without complications Instructions: ED Dyspnea Prescriptions: No Action simvastatin 10 MG tablet 10 mg PO QHS Label Comments: Cholesterol tamsulosin 0.4 MG capsule 0.4 mg PO QHS Label Comments: Prostate finasteride 5 MG tablet 5 mg PO QHS Label Comments: Prostate furosemide 20 MG tablet 10 mg PO BREAKFAST Label Comments: diuertic metoprolol tartrate 25 MG tablet 12.5 mg PO BID Qty: 30 0RF Label Comments: blood pressure metformin 1,000 MG tablet 500 mg PO BIDCM Qty: 1 0RF Label Comments: diabetes saxagliptin 5 mg tablet 5 mg PO BREAKFAST Primary Care Provider: Martha Orr Referrals: Martha Orr DO [Primary Care Provider] - 5-7 Days Disposition Disposition: Home, Self Care
--- NOTE | 2023-01-21 06:08 | EKG12_ITS ---
Test Reason : SOB Blood Pressure : / mmHG Vent. Rate : 073 BPM Atrial Rate : 000 BPM P-R Int : 000 ms QRS Dur : 100 ms QT Int : 422 ms P-R-T Axes : 000 -37 086 degrees QTc Int : 464 ms Atrial fibrillation Left axis deviation Nonspecific T wave abnormality Prolonged QT Abnormal ECG Confirmed by MI KASPER, JOVON ([id number]), metropolitan editor RYAN HARDWICK ([id number]) on 01/26/2023 6:57:50 AM Referred By: Confirmed By:NIC STARK MD
--- NOTE | 2023-01-21 06:08 | RAD_ITS ---
EXAM: XR CHEST, 1 VIEW CLINICAL INDICATION: Dyspnea TECHNIQUE: Frontal view of the chest. This report was created using [employer] report generation technology. COMPARISON: XR Chest dated 05/26/2022 FINDINGS: LUNGS AND PLEURAL SPACES: Persistent reticular densities of both lower lobes suggestive of chronic interstitial lung disease. No pneumothorax. No effusion. HEART: Stable borderline cardiomegaly. MEDIASTINUM: No mediastinal or hilar mass. BONES/JOINTS: No acute abnormality. RAD/Chest 1 View (Portable) IMPRESSION: Bibasilar interstitial lung disease. Borderline cardiomegaly. Electronically Signed: Srini Callejas MD at 7:26 EDT ,
[2023-01-21 06:27] LABS: Absolute Lymphocyte Count 1.15 X10^3/uL (0.83-4.51); Absolute Neutrophil Count 3.4 X10^3/uL (2.0-7.7); Basophil# 0.05 X10^3/uL; Eosinophil# 0.25 X10^3/uL; Eosinophils% 4.8 % (0-5); Hematocrit 43.3 % (40-54); Hemoglobin 13.5 g/dL (13.0-16.5); Lymphocyte # 1.15 X10^3/ul (0.83-4.51); Lymphocyte % 22.2 % (19-41); Mean Corp Hgb Conc 31.2 g/dL (32-36); Mean Corpuscular Hgb 29.7 pg (27.0-32.0); Mean Corpuscular Volume 95.4 fL (80-94); Monocyte# 0.36 X10^3/uL; Monocyte% 6.9 % (0-10); NRBC Flagged by Analyzer 0 % (0-5); Neutrophil # 3.36 X10^3/uL (2.7-7.7); Neutrophil % 64.9 % (47-70); Platelet Count 159 K/mm3 (150-450); RBC Distribution Width CV 13.9 % (11.6-14.6); RBC Distribution Width SD 48.9 fl (35.1-43.9); Red Blood Count 4.54 M/mm3 (4.6-6.2); White Blood Count 5.2 K/mm3 (4.4-11.0)
[2023-01-21 06:37] LABS: D-Dimer Quantitative (DVT/PE) 0.57 FEU/ug/m (0.27-0.49)
[2023-01-21 06:50] LABS: Anion Gap 4 (5-15); BUN 25 mg/dL (7-18); BUN/Creat Ratio 18.4 RATIO (10-20); Calcium,Total 8.9 mg/dL (8.5-10.1); Chloride 106 mmol/L (98-107); Creatinine, Serum 1.36 mg/dL (0.70-1.30); EST Glomerular Filtration Rate 53 mL/min (>60); Est Glom Filt Rate - Afr Amer 65 mL/min (>60); Glucose 166 mg/dL (74-106); Potassium 4.2 mmol/L (3.5-5.1); Sodium Level 141 mmol/L (136-145); Troponin-I HS 19 pg/mL (3.0-78.0)
[2023-01-21 07:37] VITALS: RESP 18
[2023-01-21 07:48] LABS: BNP,B-Type NATRIURETIC PEPTIDE 262.5 pg/mL (0-100)
[2023-01-21 07:59] VITALS: O2SAT 99
== END 2023-01-21 08:12 | disposition home or self-care (01) ==
PROVIDERS: Emergency Provider Emergency Medicine; PCP Internal Medicine; Visit Provider Emergency Medicine
DX: R06.02 Shortness of breath (principal); E11.22 Type 2 diabetes mellitus with diabetic chronic kidney disease; I12.9 Hypertensive chronic kidney disease with stage 1 through stage 4 chronic kidney disease, or unspecified chronic kidney disease; N18.9 Chronic kidney disease, unspecified; E78.5 Hyperlipidemia, unspecified; E66.9 Obesity, unspecified; Z68.32 Body mass index [BMI] 32.0-32.9, adult; Z79.84 Long term (current) use of oral hypoglycemic drugs; Z79.899 Other long term (current) drug therapy
CPT/HCPCS: 71045; 80048; 83880; 84484; 85025; 85379; 87428; 93005; 99283

== ENCOUNTER 2023-01-28 06:32 | Emergency (ER) | payer MEDICARE, SELFPAY ==
[2023-01-28 06:33] VITALS: BP 130/92; PULSE 103; RESP 31; TEMP 36.2; O2SAT 96; BMI 33.0
--- NOTE | 2023-01-28 06:34 | RAD_ITS ---
INDICATION: chest pain EXAMINATION/TECHNIQUE: X-RAY - XR Chest 1 View AP portable. 6:37 AM. COMPARISON: 01/21/2023. FINDINGS: LINES/DEVICES: None. LUNGS: Low lung volumes. Reticular opacities in the lung bases unchanged and likely chronic. No consolidation. No pneumothorax. MEDIASTINUM: Unremarkable. CARDIAC SILHOUETTE: Not enlarged. BONES AND SOFT TISSUES: No acute abnormalities. RAD/Chest 1 View (Portable) IMPRESSION: Basilar interstitial opacities chronic. No acute findings. Electronically Signed: Alexandrea Barrow MD at 7:09 EDT ,
[2023-01-28 06:47] LABS: Absolute Lymphocyte Count 1.25 X10^3/uL (0.83-4.51); Absolute Neutrophil Count 3.6 X10^3/uL (2.0-7.7); Basophil# 0.04 X10^3/uL; Basophil% 0.7 % (0-1); Eosinophil# 0.26 X10^3/uL; Eosinophils% 4.7 % (0-5); Hematocrit 43.9 % (40-54); Lymphocyte # 1.25 X10^3/ul (0.83-4.51); Lymphocyte % 22.6 % (19-41); Mean Corp Hgb Conc 31.9 g/dL (32-36); Mean Corpuscular Volume 94.2 fL (80-94); Mean Platelet Vol. 10.7 fl (6.2-12.0); Monocyte# 0.34 X10^3/uL; Monocyte% 6.2 % (0-10); NRBC Flagged by Analyzer 0 % (0-5); Neutrophil # 3.61 X10^3/uL (2.7-7.7); Neutrophil % 65.4 % (47-70); Platelet Count 161 K/mm3 (150-450); RBC Distribution Width SD 48.1 fl (35.1-43.9); Red Blood Count 4.66 M/mm3 (4.6-6.2); White Blood Count 5.5 K/mm3 (4.4-11.0)
--- NOTE | 2023-01-28 06:53 | ED.VIS.CHEST ---
HPI History of Present Illness Chief Complaint: Palpitations Informant: patient and spouse/S.O. Onset/Context/Timing Onset: Days Activity at onset: gradual Timing: Intermittent Worsened By: Nothing Relieved By: Nothing Associated Symptoms: Positive for Dyspnea and Palpitations; Negative for Nausea, Vomiting, Diaphoresis, Cough, Fever, Lightheadedness or Acid Reflux Narrative Narrative: 82-year-old male history of chronic A-fib, hypertension, diabetes. He is on aspirin only no other blood thinners. Per patient and his he has intermittent palpitations in the last couple days with some mild shortness of breath. No chest pain. No hemoptysis. No fever or chills. No leg pain he has chronic swelling in his legs which he states is actually better now. He denies any hemoptysis. He has had recent ER visits with similar work-ups for this. He had a recent negative D-dimer when corrected for his age. Prior Similar Symptoms: Yes Recent Illness/Hospitalization: No CVD Risk Factors: Positive for Hypertension and Diabetes PE Risk Factors: Negative for Recent Travel/Surgery, Recent Immobilization, Prior DVT or PE, Cancer or OCP + Smoking + >/=35 TAD Risk Factors: Negative for Marfan's Syndrome [facility] Medical History BPH (benign prostatic hyperplasia) Chronic a-fib Chronic kidney disease History of chronic kidney disease History of deep venous thrombosis History of diabetes mellitus HTN (hypertension) Hyperlipidemia Lymphedema New onset atrial fibrillation Obesity Pulmonary embolism Type 2 diabetes mellitus without complications Home Medications finasteride 5 mg tablet 5 mg PO QHS Prostate 10/17/14 [History Last Taken 07/22/19] simvastatin 10 mg tablet 10 mg PO QHS cholesterol 10/17/14 [History Last Taken 07/23/19] tamsulosin 0.4 mg capsule 0.4 mg PO QHS Prostate 10/17/14 [History Last Taken 07/22/19] furosemide 20 mg tablet 10 mg PO BREAKFAST Diuretic 04/19/15 [History Last Taken 07/22/19] metformin 1,000 mg tablet 500 mg PO BIDCM #1 TAB 04/20/15 [Rx Last Taken 07/23/19] metoprolol tartrate 25 mg tablet 12.5 mg PO BID #30 tabs 04/20/15 [Rx Last Taken 09/28/19] saxagliptin 5 mg tablet 5 mg PO BREAKFAST diabetes 07/23/19 [History Last Taken 07/23/19] Allergy/AdvReac Type Severity Reaction Status Date / Time polio vaccine AdvReac Other Uncoded 01/21/23 05:41 Family History Father Heart disease Surgical History H/O total hip arthroplasty History of removal of eye Social History Smoking Status: Never smoker alcohol intake: never ROS ROS ED ROS Narrative Palpitations. History of A-fib. Transient dyspnea. Denies fever. Denies chest pain. Review of Systems ROS Unobtainable: Denies due to encephalopathy Constitutional Constitutional ED: Denies chills or fever(s) Eyes Eyes: Reports none ENT ENT ED: Denies ear pain Cardiovascular Cardiovascular: Reports as per HPI, palpitations and racing heartbeat; Denies chest pain Respiratory/Chest Respiratory/Chest: Reports dyspnea; Denies cough Gastrointestinal Gastrointestinal: Denies abdominal pain Genitourinary Genitourinary ED: Denies dysuria or hematuria Musculoskeletal Musculoskeletal: Denies arthralgias Integumentary Denies abscess or Abrasions Neurologic Neurologic: Denies headache(s) Psychiatric Psychiatric: Denies anxiety Endocrine Endocrinology: Denies cold intolerance Hematologic/Lymphatic Hematologic/Lymphatic: Denies easy bleeding Allergic/Immunologic Allergic/Immunologic ED: Denies mouth swelling or tongue swelling EXAM Physical Exam Narrative Exam Narrative: 82-year-old male no acute distress. Vital signs stable afebrile. He does not look septic or toxic. He is in no distress. He does have a history of chronic A-fib and is A-fib on the monitor. Heart rates between 90 and 105. H EENT exam he is legally blind in his right eye. Neck nontender no JVD. Lungs clear to auscultation bilaterally. Heart irregular irregular rate about 100 no murmur. A-fib. Abdomen soft nontender. Moving all 4 extremities. 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 Normal dorsi plantarflexion. He has 1+ pitting edema both lower extremities. He states that this is actually better than the normal swelling in his legs. Neurologically is awake and alert. No focal motor deficits. Answering questions and following commands. present in room. Const Vital Signs: 01/28/23 06:33 01/28/23 06:36 01/28/23 06:36 Temperature 97.2 F L Temperature Source Temporal Pulse Rate 103 H Respiratory Rate 31 H Respiratory Effort Short of Breath Blood Pressure 130/92 H Blood Pressure Mean 104 Pulse Ox 96 Oxygen Delivery Method Room Air Room Air Positive well nourished and well developed; Negative for obese, cachectic, contractures or unkempt General Appearance ED: well developed and NAD; Negative for unkempt, cachectic, contractures or pallor Nutritional Appearance: Negative for cachectic or obese HEENT Reports moist mucous membranes normocephalic and atraumatic; Negative for trauma or tenderness Eyes PERRL and EOMs intact bilaterally General Eye ED: Negative for pale conjunctiva or scleral icterus Neck no lymphadenopathy, supple and no JVD General: Negative for tenderness Chest Wall inspection of chest normal and palpation of chest normal Resp normal respiratory effort and clear to auscultation bilaterally Effort and Inspection: Negative for respiratory distress Auscultation: Negative for rales, rhonchi or wheezes Cardio S1 normal heart sound, S2 normal heart sound and no murmurs; Negative for regular rate or regular rhythm Rate: tachycardic and other Other Details: A-fib with a rate of around 100. GI normal to inspection, nondistended, normoactive bowel sounds, soft to palpation, non-tender, non-distended and no masses Auscultation: Negative for hyperactive bowel sounds Back/Spine no CVA tenderness and no thoracic nor lumbar tenderness General Back: Negative for CVA tenderness Cervical Spine: Negative for cervical spine tenderness Extremity Negative for normal to inspection Extremity Narrative: Both lower extremities have 1+ pitting edema. He said that is better than his baseline. General Extremety ED: Yes edema General Extremity: edema Neuro oriented x3 and No no sensory deficits noted Neuro Narrative: Right eye legally blind. No motor deficits. Sensorium / Orientation: awake, alert, oriented to person, oriented to place and oriented to time; Negative for confused, lethargic or stuporous Motor Exam: strength 5/5 throughout Psych mental status grossly normal Appearance: Negative for unkempt Attitude: No agitated Mood & Affect: Negative for depressed, anxious or tearful Skin no rashes or lesions noted and no wounds General Skin Exam: Negative for jaundice or pallor Trauma: Negative for abrasion MDM MDM MDM Narrative Medical decision making narrative: 82-year-old male history of chronic A-fib complaining of palpitations. No chest pain. His exam is consistent with A-fib with a heart rate between 90 and 105. He has chronic lower extremity edema which is his baseline or better. He will undergo a cardiac work-up. At this moment he does not need any rate controlling medications if his A-fib is consistently higher than 100 he may need patient. He is on metoprolol at home. He had labs a week ago. D-dimer was negative for age and his BNP was only in the 262 range. Repeat exam patient is doing well at 7:12 AM. His heart rate is now running in the mid 70s. His labs and chest x-ray have chronic changes but no significant acute process or acute change from labs done a week ago. He has chronic A-fib occasionally gets RVR but it is well controlled currently with his metoprolol. I will explain him that if it runs high he can take an extra dose of metoprolol and and follow-up with his primary care physician Dr. Martha Orr for further evaluation and possible adjustment of his beta-carlitos medication for his A-fib. He does not need to be admitted at this time. He does not need any further work-up. History & Record Review Discussion w/independent historian: Patient and Family Lab Data Attestation: I reviewed the patient's lab results. Lab results narrative: CBC normal. White count of 5.5. H&H of 14 and 43.9. Platelets 161. Electrolytes unremarkable gap of 6. BUN 25 creatinine 1.35. Glucose 169. Troponin is 25. The labs when compared to prior labs are consistent with his baseline. Labs: Laboratory Results - last 24 hr 01/28/23 01/28/23 06:40 06:40 WBC 5.5 RBC 4.66 Hgb 14.0 Hct 43.9 MCV 94.2 H MCH 30.0 MCHC 31.9 L RDW Std Deviation 48.1 H RDW Coeff of Sasha 14.0 Plt Count 161 MPV 10.7 Immature Gran % (Auto) 0.400 Neut % (Auto) 65.4 Lymph % (Auto) 22.6 Young % (Auto) 6.2 Eos % (Auto) 4.7 Baso % (Auto) 0.7 Absolute Neuts (auto) 3.6 Absolute Lymphs (auto) 1.25 Nucleated RBC % 0 Sodium 141 Potassium 4.1 Chloride 104 Carbon Dioxide 31.0 Anion Gap 6 BUN 25 H Creatinine 1.35 H Estim Creat Clear Calc 52.69 Est GFR (MDRD) Af Amer 65 Est GFR (MDRD) Non-Af 54 L BUN/Creatinine Ratio 18.5 Glucose 169 H Calcium 9.0 Troponin I High Sens 25 Radiography Chest X-Ray - ED: 1 View, Read by ED Physician, Heart, Mediastinum, Bony Structures, Chronic Changes and - (Chronic bilateral lung interstitial lung disease. Seen on prior x-rays.) Diagnostic Testing: Clinical Impression(s) from Imaging Studies Chest X-Ray 01/28/23 06:34 IMPRESSION: Basilar interstitial opacities chronic. No acute findings. Electronically Signed: Alexandrea Barrow MD at 7:09 EDT , Chest x-ray, portable, single view interpreted by myself shows bilateral chronic interstitial lower lung disease. This is seen on prior films. Cannot rule out mild CHF. But this appears to be chronic. Normal cardiac silhouette. No significant large effusions. Rhythm Strip Rhythm Strip: A-fib Rate: 112 Ectopy: PVC(s) EKG Initial EKG: Attestation: I personally reviewed and interpreted this EKG as follows: Interpretation: Atrial Fibrillation Comments: Atrial fibrillation rate of 112. No acute signs of MO or ischemia. Occasional PVCs. Discharge Plan Triage Chief Complaint: Palpitations ED Provider: Jeremy Aburto Dx/Rx/DC Orders Clinical Impression: Chronic a-fib, Heart palpitations, History of diabetes mellitus, type II Instructions: AFib Prescriptions: No Action simvastatin 10 MG tablet 10 mg PO QHS Label Comments: Cholesterol tamsulosin 0.4 MG capsule 0.4 mg PO QHS Label Comments: Prostate finasteride 5 MG tablet 5 mg PO QHS Label Comments: Prostate furosemide 20 MG tablet 10 mg PO BREAKFAST Label Comments: diuertic metoprolol tartrate 25 MG tablet 12.5 mg PO BID Qty: 30 0RF Label Comments: blood pressure metformin 1,000 MG tablet 500 mg PO BIDCM Qty: 1 0RF Label Comments: diabetes saxagliptin 5 mg tablet 5 mg PO BREAKFAST Primary Care Provider: Martha Orr Referrals: Martha Orr, [Primary Care Provider] - 3-5 Days if not improving Activity Restrictions/Additional Instructions: You have a chronically abnormal heart rate called atrial fibrillation. The medication you take metoprolol helps control that. If your rate is consistently higher than 110 and as long as your blood pressure is higher than 110 on the systolic or upper number you can take a second dose of your metoprolol. If your heart rate stays consistently high and you should be reevaluated by your primary care physician. If you are feeling a lot worse you can return to the ER. Disposition Disposition: Home, Self Care
[2023-01-28 07:05] LABS: Anion Gap 6 (5-15); BUN 25 mg/dL (7-18); BUN/Creat Ratio 18.5 RATIO (10-20); Chloride 104 mmol/L (98-107); Creatinine, Serum 1.35 mg/dL (0.70-1.30); EST Glomerular Filtration Rate 54 mL/min (>60); Est Glom Filt Rate - Afr Amer 65 mL/min (>60); Estimated Creatinine Clearance 52.69 ml/min; Glucose 169 mg/dL (74-106); Potassium 4.1 mmol/L (3.5-5.1); Sodium Level 141 mmol/L (136-145); Troponin-I HS 25 pg/mL (3.0-78.0)
[2023-01-28 07:31] VITALS: BP 116/79; PULSE 79; RESP 20; O2SAT 96
== END 2023-01-28 07:36 | disposition home or self-care (01) ==
PROVIDERS: Emergency Provider Emergency Medicine; PCP Internal Medicine; Visit Provider Emergency Medicine
DX: I48.20 Chronic atrial fibrillation, unspecified (principal); R00.2 Palpitations; N18.9 Chronic kidney disease, unspecified; Z86.711 Personal history of pulmonary embolism; Z79.82 Long term (current) use of aspirin
CPT/HCPCS: 71045; 80048; 84484; 85025; 93005; 99284; A4216

== ENCOUNTER 2023-02-04 10:40 | Inpatient (IN) | payer MEDICARE, SELFPAY ==
[2023-02-04] VITALS (9 sets, daily range): BP systolic 90–141; BP diastolic 65–100; PULSE 97–134; RESP 14–35; TEMP 36.1–37; O2SAT 97–100; BMI 29.8; BMI 33.4
--- NOTE | 2023-02-04 11:09 | CT_ITS ---
STUDY: CT BRAIN WITHOUT CONTRAST REASON FOR EXAM: Male, 82 years old. Mental status change, headache RADIATION DOSAGE (If Supplied By Facility): CTDIvol = ( 47.06 ) mGy, DLP = ( 1815.94 ) mGycm TECHNIQUE: Transaxial CT imaging of the brain was performed without administration of intravenous contrast material. Individualized dose optimization techniques were used for this CT. COMPARISON: MR from 05/27/2022 FINDINGS: Normal soft tissue structures. Normal calvarium. There is mild cerebral atrophy with widening of the extra-axial spaces and ventricular dilatation. There are areas of decreased attenuation within the white matter tracts of the supratentorial brain, consistent with microvascular disease changes. Normal basal ganglia and thalami. Normal brainstem. Normal cerebellum. There is no intracranial hemorrhage. There are no findings of an acute ischemic infarction. Normal visualized paranasal sinuses. CT/Brain/Head without Contrast IMPRESSION: Chronic involutional changes of the brain, no acute hemorrhage. Electronically Signed: Gene Moses MD at 12:26 EDT ,
--- NOTE | 2023-02-04 11:10 | EKG12_ITS ---
Test Reason : WEAKNESS Blood Pressure : / mmHG Vent. Rate : 101 BPM Atrial Rate : 104 BPM P-R Int : 000 ms QRS Dur : 104 ms QT Int : 378 ms P-R-T Axes : 000 -30 077 degrees QTc Int : 490 ms Atrial fibrillation with premature ventricular or aberrantly conducted complexes Left axis deviation Nonspecific T wave abnormality Abnormal ECG Confirmed by VERENA BRANDON ([id number]), video news editor RHONDA MORALES ([id number]) on 02/10/2023 7:48:38 AM Referred By: Jack Joe Confirmed By:VERENA BRANDON
--- NOTE | 2023-02-04 11:11 | EX.ED.DYSGE1 ---
HPI History of Present Illness Chief Complaint: Weakness Informant: patient and spouse/S.O. Narrative Narrative: Patient states he has been feeling very weak for the past 3 weeks. This is his fourth visit to the emergency department for the same symptoms. He also has palpitations and history of A-fib. He has not followed up with his doctor as an outpatient yet. He states he is very sick but he has trouble specifying exactly what he means. He is extremely weak all over and it is no worse in 1 particular area. He has lightheaded especially with light activities, to the point where he needs to sit down and rest which helps and it goes away. He does not have vertigo, no disequilibrium, he can turn his head without giving him any symptoms of dizziness. No vision changes. He has some occasional coughing and hacking, but admits that this is chronic and not new/worse. He states he feels really weak and his spouse is concerned that she cannot care for him at home anymore in this condition. He states he is having difficulty urinating and wonders if he needs a catheter to get urine out. He denies any dysuria. [facility] Medical History BPH (benign prostatic hyperplasia) Chronic a-fib Chronic kidney disease History of chronic kidney disease History of deep venous thrombosis History of diabetes mellitus HTN (hypertension) Hyperlipidemia Lymphedema New onset atrial fibrillation Obesity Pulmonary embolism Type 2 diabetes mellitus without complications Home Medications finasteride 5 mg tablet 5 mg PO QHS PROSTATE 10/17/14 [History Last Taken 02/03/23] simvastatin 10 mg tablet 10 mg PO QHS CHOLESTEROL 10/17/14 [History Last Taken 02/03/23] tamsulosin 0.4 mg capsule 0.4 mg PO QHS PROSTATE 10/17/14 [History Last Taken 02/03/23] furosemide 20 mg tablet 10 mg PO BREAKFAST FLUID 04/19/15 [History Last Taken 02/04/23] saxagliptin 5 mg tablet 5 mg PO BREAKFAST DIABETES 07/23/19 [History Last Taken 02/04/23] aspirin 81 mg tablet,delayed release 81 mg PO DAILY HEART HEALTH 02/04/23 [History Last Taken 02/04/23] metformin 500 mg tablet 500 mg PO BID DIABETES 02/04/23 [History Last Taken 02/04/23] metoprolol tartrate 25 mg tablet 12.5 mg PO BID HEART 02/04/23 [History Last Taken 02/04/23] Allergy/AdvReac Type Severity Reaction Status Date / Time polio vaccine AdvReac Other Uncoded 02/04/23 14:27 Family History Father Heart disease Surgical History H/O total hip arthroplasty History of removal of eye Social History Smoking Status: Never smoker alcohol intake: never ROS ROS ED Constitutional Constitutional ED: Reports fatigue and weakness; Denies chills or fever(s) Eyes Eyes: Denies change in vision or diplopia ENT ENT ED: Denies ear pain, rhinorrhea, sore throat, tinnitus or vertigo Cardiovascular Cardiovascular: Reports leg edema, lightheadedness, orthostatic symptoms and palpitations; Denies chest pain Respiratory/Chest Respiratory/Chest: Reports dyspnea; Denies cough Gastrointestinal Gastrointestinal: Reports nausea and vomiting; Denies abdominal pain or diarrhea Genitourinary Genitourinary ED: Reports difficulty urinating; Denies dysuria, flank pain, hematuria or low back pain Musculoskeletal Musculoskeletal: Denies back pain, myalgias or neck pain Integumentary Denies abscess or rash Neurologic Neurologic: Reports headache(s); Denies paresthesias or weakness Psychiatric Psychiatric: Reports anxiety; Denies suicidal thoughts EXAM Physical Exam Const Vital Signs: 02/04/23 10:41 02/04/23 10:50 02/04/23 10:50 Temperature 97.0 F L Temperature Source Temporal Pulse Rate 97 102 H Respiratory Rate 14 35 H Respiratory Pattern Tachypnea Blood Pressure 118/75 141/100 H Blood Pressure Mean 89 113 Pulse Ox 98 97 Oxygen Delivery Method Room Air Room Air 02/04/23 11:27 02/04/23 14:02 02/04/23 14:41 Temperature 97.6 F L Temperature Source Temporal Pulse Rate 105 H 112 H 134 H Respiratory Rate 28 H 26 H 24 H Respiratory Pattern Tachypnea Blood Pressure 127/96 H 132/84 H Blood Pressure Mean 106 100 Pulse Ox 97 97 Oxygen Delivery Method Room Air Room Air Positive well nourished and well developed General Appearance ED: well developed and NAD HEENT Reports moist mucous membranes normocephalic and atraumatic Eyes PERRL and EOMs intact bilaterally Neck full ROM, no lymphadenopathy, supple and no JVD Chest Wall inspection of chest normal and palpation of chest normal Resp Resp Narrative: Tachypnea, anxious, no distress. Mild expiratory wheezes throughout, trachea midline equal bilaterally. Cardio regular rate, regular rhythm and no murmurs Rate: tachycardic GI non-tender and non-distended Auscultation: normoactive bowel sounds Palpation: soft Rectal Exam: Negative for other Back/Spine no CVA tenderness General Back: other FROM Extremity normal to inspection Extremity Narrative: No calf tenderness or palpable cords General Extremety ED: Yes edema; Negative for pulses abnormal or tenderness General Extremity: edema bilateral lower extremity Details: moderate (With signs of chronic stasis dermatitis bilaterally, no tenderness or bright erythema); Negative for pulses abnormal Neuro oriented x3, CN's II-XII intact bilaterally and no sensory deficits noted Sensorium / Orientation: awake and alert Motor Exam: strength 5/5 throughout Psych Psych Narrative: Anxious, pressured speech Skin no rashes or lesions noted Skin Narrative: Several wounds with excoriations in both shins, nontender no active bleeding no signs of acute infection. They are superficial. MDM MDM MDM Narrative Medical decision making narrative: Labs are largely unchanged in this patient with chronic renal insufficiency, I repeated COVID and flu it is negative, CT of the head was obtained because of the headaches and other systemic symptoms, screening for stroke, hemorrhage, mass, I reviewed the images and they appear unremarkable for any acute, radiology in agreement and I agree with their interpretation. 2 view chest x-ray shows some mild pulmonary congestion, as confirmed by radiology. His recent BNP was slightly elevated. His last echocardiogram was 5 years ago, showed normal systolic function, was not able to assess for diastolic issues, I think it would be reasonable to repeat this, I am admitting him because he is too weak to care for himself or to be cared by his significant other who is also elderly at home, the patient states that if he needs short-term rehab/SNF, he would be okay with that. We will give him a dose of IV Lasix 20 mg and repeat his BNP that is added. I am not walking him to see if he gets hypoxic due to fall risk and lightheadedness/generalized weakness. His bilirubin is only slightly elevated, and the rest of his liver enzymes are negative so I do not think he needs any advanced abdominal imaging emergently. Discussed with hospitalist for admission, but there was not a bed immediately available so the patient was placed on ED observation at 1340 while he waited a bed. During that, he became more tachycardic with regards to his atrial fibrillation so he was given a dose of Cardizem. History & Record Review Additional record(s) reviewed:: Prior ED visit and Prior labs Lab Data Attestation: I reviewed the patient's lab results. Labs: Laboratory Results - last 24 hr 02/04/23 02/04/23 02/04/23 10:52 10:52 10:52 WBC 7.4 RBC 4.65 Hgb 13.8 Hct 43.8 MCV 94.2 H MCH 29.7 MCHC 31.5 L RDW Std Deviation 49.2 H RDW Coeff of Sasha 14.3 Plt Count 175 MPV 11.1 Immature Gran % (Auto) 0.300 Neut % (Auto) 74.0 H Lymph % (Auto) 14.9 L [place] % (Auto) 7.7 Eos % (Auto) 2.6 Baso % (Auto) 0.5 Absolute Neuts (auto) 5.4 Absolute Lymphs (auto) 1.10 Nucleated RBC % 0 Sodium 139 Potassium 4.0 Chloride 106 Carbon Dioxide 31.0 Anion Gap 2 L BUN 20 H Creatinine 1.37 H Estim Creat Clear Calc 51.92 Est GFR (MDRD) Af Amer 64 Est GFR (MDRD) Non-Af 53 L BUN/Creatinine Ratio 14.6 Glucose 138 H Calcium 9.1 Total Bilirubin 1.10 H AST 23 ALT 46 Alkaline Phosphatase 78 Troponin I High Sens 31 B-Natriuretic Peptide 473.4 H Total Protein 6.9 Albumin 3.6 Globulin 3.3 Albumin/Globulin Ratio 1.1 Urine Color Urine Clarity Urine pH Ur Specific [place] Urine Protein Urine Glucose (UA) Urine Ketones Urine Occult Blood Urine Nitrite Urine Bilirubin Urine Urobilinogen Ur Leukocyte Esterase Urine RBC Urine WBC Ur Squamous Epith Cells Urine Bacteria Urine Mucus 02/04/23 12:30 WBC RBC Hgb Hct MCV MCH MCHC RDW Std Deviation RDW Coeff of [place] Plt Count MPV Immature Gran % (Auto) Neut % (Auto) Lymph % (Auto) [place] % (Auto) Eos % (Auto) Baso % (Auto) Absolute Neuts (auto) Absolute Lymphs (auto) Nucleated RBC % Sodium Potassium Chloride Carbon Dioxide Anion Gap BUN Creatinine Estim Creat Clear Calc Est GFR (MDRD) Af Amer Est GFR (MDRD) Non-Af BUN/Creatinine Ratio Glucose Calcium Total Bilirubin AST ALT Alkaline Phosphatase Troponin I High Sens B-Natriuretic Peptide Total Protein Albumin Globulin Albumin/Globulin Ratio Urine Color Yellow Urine Clarity Sl. Cloudy Urine pH 6.5 Ur Specific [place] 1.010 Urine Protein 30 H Urine Glucose (UA) Normal Urine Ketones 5 H Urine Occult Blood 10 H Urine Nitrite Negative Urine Bilirubin Negative Urine Urobilinogen Normal Ur Leukocyte Esterase 25 H Urine RBC 0-5 SEEN Urine WBC 0-5 SEEN Ur Squamous Epith Cells 0-5 SEEN Urine Bacteria 0 SEEN Urine Mucus 0 SEEN Radiography Diagnostic Testing: Clinical Impression(s) from Imaging Studies Brain CT 02/04/23 11:09 IMPRESSION: Chronic involutional changes of the brain, no acute hemorrhage. Electronically Signed: Gene Moses MD at 12:26 EDT , ADDENDUM: 02/04/23 1244 IMPRESSION: undefined Chest X-Ray 02/04/23 11:45 IMPRESSION: Pulmonary vascular congestion/CHF with small bilateral pleural effusions which has slightly worsened/progressed since the previous study. Electronically Signed: Gene Moses MD at 12:27 EDT , Rhythm Strip Rhythm Strip: A-fib Rate: 100 Ectopy: PVC(s) EKG Initial EKG: Attestation: I personally reviewed and interpreted this EKG as follows: Interpretation: No Acute Injury Pattern, Atrial Fibrillation and LAFB Comments: pvC Prior EKG tracings: available for review Prior: Unchanged Discharge Plan Dx/Rx/DC Orders Clinical Impression: Acute CHF, Generalized weakness, Declining functional status, Atrial fibrillation with RVR Disposition Disposition: Acute Care [facility]
[2023-02-04] MEDS: Albuterol 2.5 MG/3 ML VIAL.NEB. INHALATION (11:18)
[2023-02-04] MEDS: 0.9% Normal Saline 1,000 ML 150 ML IV (11:19)
[2023-02-04 11:24] LABS: Absolute Neutrophil Count 5.4 X10^3/uL (2.0-7.7); Basophil# 0.04 X10^3/uL; Basophil% 0.5 % (0-1); Eosinophil# 0.19 X10^3/uL; Eosinophils% 2.6 % (0-5); Hematocrit 43.8 % (40-54); Hemoglobin 13.8 g/dL (13.0-16.5); Lymphocyte % 14.9 % (19-41); Mean Corp Hgb Conc 31.5 g/dL (32-36); Mean Corpuscular Hgb 29.7 pg (27.0-32.0); Mean Corpuscular Volume 94.2 fL (80-94); Mean Platelet Vol. 11.1 fl (6.2-12.0); Monocyte# 0.57 X10^3/uL; Monocyte% 7.7 % (0-10); NRBC Flagged by Analyzer 0 % (0-5); Neutrophil # 5.44 X10^3/uL (2.7-7.7); Platelet Count 175 K/mm3 (150-450); RBC Distribution Width CV 14.3 % (11.6-14.6); RBC Distribution Width SD 49.2 fl (35.1-43.9); Red Blood Count 4.65 M/mm3 (4.6-6.2); White Blood Count 7.4 K/mm3 (4.4-11.0)
[2023-02-04 11:38] LABS: ALB/GLOB Ratio 1.1 RATIO (0.9-2.4); AST(SGOT) 23 U/L (15-37); Alanine Aminotransfer ALT/SGPT 46 U/L (16-61); Albumin, Serum 3.6 g/dL (3.2-5.0); Alkaline Phosphatase 78 U/L (45-117); Anion Gap 2 (5-15); BUN 20 mg/dL (7-18); BUN/Creat Ratio 14.6 RATIO (10-20); Calcium,Total 9.1 mg/dL (8.5-10.1); Chloride 106 mmol/L (98-107); Creatinine, Serum 1.37 mg/dL (0.70-1.30); EST Glomerular Filtration Rate 53 mL/min (>60); Est Glom Filt Rate - Afr Amer 64 mL/min (>60); Estimated Creatinine Clearance 51.92 ml/min; Globulin 3.3 g/dL (2.2-4.2); Glucose 138 mg/dL (74-106); Protein, Total 6.9 g/dL (6.4-8.2); Sodium Level 139 mmol/L (136-145); Troponin-I HS 31 pg/mL (3.0-78.0)
--- NOTE | 2023-02-04 11:45 | RAD_ITS ---
STUDY: X-RAY CHEST REASON FOR EXAM: Male, 82 years old. dyspnea TECHNIQUE: PA and lateral views of the chest. COMPARISON: 01/28/2023 FINDINGS: EKG leads overlie the chest Lungs are expanded with superimposed interstitial edema, and bilateral pleural effusions suggesting pulmonary vascular congestion/CHF. Follow-up recommended to assure resolution. Findings have slightly progressed/worsened since the previous study. Normal size heart. Normal mediastinum and daniel. Normal visualized pulmonary arteries. Normal visualized aortic arch and descending thoracic aorta. There are diffuse degenerative changes of the visualized thoracic spine. There is degenerative osteoarthritis of the bilateral shoulders. There is no demonstrated abnormality of the visualized soft tissue structures of the upper abdomen. RAD/Chest PA and Lateral IMPRESSION: Pulmonary vascular congestion/CHF with small bilateral pleural effusions which has slightly worsened/progressed since the previous study. Electronically Signed: Gene Moses MD at 12:27 EDT ,
[2023-02-04 12:34] LABS: Bacteria 0 SEEN /hpf (None Seen); Mucous, Urine 0 SEEN /hpf (<or=2+)
[2023-02-04 12:53] LABS: Color, Urine Yellow (Yellow); Glucose, Dipstick Normal (Normal); Ketone-Dipstick 5 mg/dl (Negative); Leukocyte Esterase-Dipstick 25 /ul (Negative); Nitrite-Dipstick Negative (Negative); Occult Blood-Urine 10 /ul (Negative); Protein-Dipstick 30 mg/dl (Negative); Urine Bilirubin Dipstick Negative (Negative); Urine Clarity Sl. Cloudy (Clear); Urine Urobilinogen Normal (Normal); Urine pH 6.5 (5.0 - 8.0)
[2023-02-04 13:03] LABS: Red Blood Cells-Urine 0-5 SEEN /hpf (0-5); Squamous Epithelial Cells - UA 0-5 SEEN /hpf (0-5); White Blood Cells 0-5 SEEN /hpf (0-5)
--- NOTE | 2023-02-04 13:46 | NURSING ---
PCU [facility], DEBILITY
[2023-02-04] MEDS: Furosemide 20 MG/2 ML VIAL IV (13:58)
--- NOTE | 2023-02-04 14:33 | ECHOD_ITS ---
Reason For Study: DYSPNEA Procedure This was a 2D Doppler, Color Flow transthoracic echocardiogram. Exam performed portable in ED. Left Ventricle Moderately dilated left ventricle. Moderately severe global left ventricular systolic dysfunction. The left ventricular ejection fraction is 35 %. Unable to assess diastolic dysfunction due to arrhythmia. Right Ventricle Normal right ventricle. Atria The left atrium is mildly enlarged. Normal right atrium. Mitral Valve Mild (1+) mitral valve insufficiency. Tricuspid Valve Trivial tricuspid valve insufficiency. Unable to estimate RV systolic pressure due to insufficient tricuspid regurgitant envelope. Aortic Valve Aortic sclerosis, no stenosis. Mild (1+) aortic valve insufficiency. Pulmonic Valve The pulmonic valve is not well visualized. Great Vessels Normal sized aortic root. Pericardium/Pleural No pericardial effusion. MMode/2D Measurements & Calculations LVIDd: 6.2 cm IVSd: 1.7 cm Ao root diam: 3.6 cm LVIDs: 5.4 cm LVPWd: 2.0 cm FS: 13.2 % LAV(MOD-bp): 101.0 ml LVAd ap4: 35.5 cm2 LVAd ap2: 40.4 cm2 LAV(MOD-bp) Indexed: 41.8 ml/m2 LVLd ap4: 7.5 cm LVLd ap2: 8.5 cm LAV(MOD-sp2): 79.7 ml EDV(MOD-sp4): 133.3 ml EDV(MOD-sp2): 156.9 ml LAV(MOD-sp4): 124.0 ml EDV(sp4-el): 142.1 ml EDV(sp2-el): 163.1 ml LVAs ap4: 27.3 cm2 LVAs ap2: 32.0 cm2 LVLs ap4: 6.8 cm LVLs ap2: 7.9 cm ESV(MOD-sp4): 90.2 ml ESV(MOD-sp2): 106.7 ml ESV(sp4-el): 92.4 ml ESV(sp2-el): 109.3 ml EF(MOD-sp4): 32.4 % EF(MOD-sp2): 32.0 % EF(sp4-el): 35.0 % SV(MOD-sp4): 43.2 ml SV(MOD-sp2): 50.2 ml SV(sp4-el): 49.7 ml LA dimension(2D): 4.2 cm LA A4 area: 34.4 cm2 RA A4 area: 30.6 cm2 Doppler Measurements & Calculations MV E max dao: 97.2 cm/sec Ao V2 max: 98.0 cm/sec LV V1 max: 72.0 cm/sec Ao max P.9 mmHg LV V1 max P.1 mmHg Ao V2 mean: 71.2 cm/sec LV V1 mean P.1 mmHg Ao mean P.3 mmHg LV V1 mean: 48.3 cm/sec Ao V2 VTI: 18.0 cm LV V1 VTI: 12.2 cm AV (velocity ratio): 0.67 MR max dao: 423.7 cm/sec MR max P.8 mmHg ECHO/Echo Complete Interpretation Summary Moderately dilated left ventricle. Moderately severe global left ventricular systolic dysfunction. The left ventricular ejection fraction is 35 %. Unable to assess diastolic dysfunction due to arrhythmia. The left atrium is mildly enlarged. Mild (1+) mitral valve insufficiency. Ordering Physician: Ashely Sung Referring Physician: Jack Joe Performed By: Mary Beth Hollingsworth RCS
--- NOTE | 2023-02-04 14:40 | HP.PCM_ITS ---
HPI - General General Date of Admission: 02/04/23 Date of Service: 02/04/23 Chief Complaint: Progressive weakness x several weeks and shortness of breath x several days HPI Narrative KASSI BROTHERS, is a 82 M with a history of chronic atrial fibrillation (not on any anticoagulation) and hypertension presents to the hospital with several week history of generalized weakness that has been progressive and several days of shortness of breath and exertional dyspnea. Patient also has easy fatigability and poor exercise tolerance, orthopnea and paroxysmal nocturnal dyspnea. There has been some increase in his lower extremity swelling. Denies any chest pain at rest or with activity. Some dizziness with activity as well. Did not report any palpitations. He denies any fever or chills. [facility] Medical History BPH (benign prostatic hyperplasia) Chronic a-fib Chronic kidney disease History of chronic kidney disease History of deep venous thrombosis History of diabetes mellitus HTN (hypertension) Hyperlipidemia Lymphedema New onset atrial fibrillation Obesity Pulmonary embolism Type 2 diabetes mellitus without complications Home Medications finasteride 5 mg tablet 5 mg PO QHS PROSTATE 10/17/14 [History Last Taken 02/03/23] simvastatin 10 mg tablet 10 mg PO QHS CHOLESTEROL 10/17/14 [History Last Taken 02/03/23] tamsulosin 0.4 mg capsule 0.4 mg PO QHS PROSTATE 10/17/14 [History Last Taken 02/03/23] furosemide 20 mg tablet 10 mg PO BREAKFAST FLUID 04/19/15 [History Last Taken 02/04/23] saxagliptin 5 mg tablet 5 mg PO BREAKFAST DIABETES 07/23/19 [History Last Taken 02/04/23] aspirin 81 mg tablet,delayed release 81 mg PO DAILY HEART HEALTH 02/04/23 [History Last Taken 02/04/23] metformin 500 mg tablet 500 mg PO BID DIABETES 02/04/23 [History Last Taken 02/04/23] metoprolol tartrate 25 mg tablet 12.5 mg PO BID HEART 02/04/23 [History Last Taken 02/04/23] Allergy/AdvReac Type Severity Reaction Status Date / Time polio vaccine AdvReac Other Uncoded 02/04/23 14:27 Family History Father Heart disease Surgical History H/O total hip arthroplasty History of removal of eye Social History Smoking Status: Never smoker alcohol intake: never ROS ROS Narrative Denies any chest pain abdominal pain or nausea vomiting. All other systems reviewed and essentially negative as above in the body of the history. Vital Signs Vital Signs Vital Signs: 02/04/23 10:41 02/04/23 10:50 02/04/23 10:50 Temperature 36.1 C L Temperature Source Temporal Pulse Rate 97 102 H Respiratory Rate 14 35 H Respiratory Pattern Tachypnea Blood Pressure 118/75 141/100 H Blood Pressure Mean 89 113 Pulse Ox 98 97 Oxygen Delivery Method Room Air Room Air 02/04/23 11:27 02/04/23 14:02 Temperature Temperature Source Pulse Rate 105 H 112 H Respiratory Rate 28 H 26 H Respiratory Pattern Tachypnea Blood Pressure 127/96 H Blood Pressure Mean 106 Pulse Ox 97 Oxygen Delivery Method Room Air Weight Weight: 111.13 kg Body Mass Index (BMI) 29.8 Physical Exam Narrative General exam. Elderly man, ill-appearing, dyspneic, anxious appearing HEENT. Oral mucosa slightly dry no pallor or jaundice. 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 Some dried mucopurulent drainage on the eyelids. Neck. Neck is supple no jugular venous distention. Heart. Heart sounds are irregular. No murmurs heard. Lungs. Diminished breath sounds in both lung bases. Some wheezing in the left lung base. Abdomen. Obese. Nontender. Soft. Extremities. Excoriations on skin of both lower extremities. Both lower extremities with 1-2+ pitting edema. Right more than the left. Thin-walled bullae of differing sizes over the lower extremities right worse than the left. Mild tenderness. Erythema surrounding the excoriations. No particular warmth. [employer]. Conscious alert and oriented x3. Cranial 2-12 grossly intact. All other organ systems examined and essentially normal. Results Lab / Micro Data Result Diagrams: 02/04/23 10:52 02/04/23 10:52 Labs: Laboratory Results - last 24 hr 02/04/23 10:52: WBC 7.4, RBC 4.65, Hgb 13.8, Hct 43.8, MCV 94.2 H, MCH 29.7, MCHC 31.5 L, RDW Std Deviation 49.2 H, RDW Coeff of [place] 14.3, Plt Count 175, MPV 11.1, Immature Gran % (Auto) 0.300, Neut % (Auto) 74.0 H, Lymph % (Auto) 14.9 L, [place] % (Auto) 7.7, Eos % (Auto) 2.6, Baso % (Auto) 0.5, Absolute Neuts (auto) 5.4, Absolute Lymphs (auto) 1.10, Nucleated RBC % 0 02/04/23 10:52: Sodium 139, Potassium 4.0, Chloride 106, Carbon Dioxide 31.0, Anion Gap 2 L, BUN 20 H, Creatinine 1.37 H, Estim Creat Clear Calc 51.92, Est GFR (MDRD) Af Amer 64, Est GFR (MDRD) Non-Af 53 L, BUN/Creatinine Ratio 14.6, Glucose 138 H, Calcium 9.1, Total Bilirubin 1.10 H, AST 23, ALT 46, Alkaline Phosphatase 78, Troponin I High Sens 31, Total Protein 6.9, Albumin 3.6, Globulin 3.3, Albumin/Globulin Ratio 1.1 02/04/23 12:30: Urine Color Yellow, Urine Clarity Sl. Cloudy, Urine pH 6.5, Ur Specific [place] 1.010, Urine Protein 30 H, Urine Glucose (UA) Normal, Urine Ketones 5 H, Urine Occult Blood 10 H, Urine Nitrite Negative, Urine Bilirubin Negative, Urine Urobilinogen Normal, Ur Leukocyte Esterase 25 H, Urine RBC 0-5 SEEN, Urine WBC 0-5 SEEN, Ur Squamous Epith Cells 0-5 SEEN, Urine Bacteria 0 SEEN, Urine Mucus 0 SEEN Micro: Microbiology 02/04/23 11:14 Nasal Secretion SARS-CoV-2 & FLU Antigen (Rapid) - Final Rhythm Strip Rhythm Strip: A-fib Rate: 100 Ectopy: PVC(s) EKG Initial EKG: Attestation: I personally reviewed and interpreted this EKG as follows: (Atrial fibrillation with some rapid ventricular response.) Radiology Impression Brain CT 02/04/23 11:09 IMPRESSION: Chronic involutional changes of the brain, no acute hemorrhage. Electronically Signed: Gene Moses MD at 12:26 EDT , ADDENDUM: 02/04/23 1244 IMPRESSION: undefined Chest X-Ray 02/04/23 11:45 IMPRESSION: Pulmonary vascular congestion/CHF with small bilateral pleural effusions which has slightly worsened/progressed since the previous study. Electronically Signed: Gene Moses MD at 12:27 EDT , Assessment & Plan Assessment/Plan (1) Acute CHF: (2) Chronic a-fib: (3) History of diabetes mellitus, type II: (4) Obesity: (5) Generalized weakness: PLAN: Plan Assessment and plan 1. Congestive heart failure. Suspect acute on chronic diastolic congestive heart failure. Will keep on telemetry, echocardiogram. IV Lasix 40 mg twice a day. Strict I's and O's and low-salt diet. Monitor electrolytes. Preemptive potassium supplementation with 40 mEq of potassium chloride daily. Monitor renal function. Suspect possible underlying hypertensive heart disease or ischemic heart disease. 2. Mild cellulitis involving both lower extremities right more than the left. Start on oral antibiotics with Keflex 500 mg 3 times a day and doxycycline 100 mg twice a day. 3. Type 2 diabetes. Continue metformin 500 mg twice a day with meals. Diabetic diet. 4. Stage III chronic kidney disease. 5. Chronic atrial fibrillation. Patient with [id number] of 5. Unclear reason why patient not on anticoagulation. No clear contraindication. Will start on Eliquis 5 mg twice a day. Hopefully able to afford and can be continued at discharge. 6. Hypertension. Fairly well controlled. Continue antihypertensives. 7. Generalized weakness. Unclear etiology but pulmonary likely secondary to underlying CHF. Check vitamin B12 levels and TSH. Physical and Occupational Therapy to see and evaluate. May need short-term rehab.
[2023-02-04 15:07] LABS: BNP,B-Type NATRIURETIC PEPTIDE 473.4 pg/mL (0-100)
[2023-02-04] MEDS: 0.9% Saline Lock 10 ML Syringe IV (18:03)
[2023-02-04] MEDS: metFORMIN HCl 500 MG Tablet PO (18:04)
[2023-02-04] MEDS: Furosemide 40 MG/4 ML Vial IV (18:04)
[2023-02-04] MEDS: Metoprolol Tartrate 25 MG Tablet 12.5 MG PO (22:29)
[2023-02-04] MEDS: Doxycycline 100 MG CAPSULE PO (22:29)
[2023-02-04] MEDS: Atorvastatin Calcium 10 MG Tablet 5 MG PO (22:30)
[2023-02-04] MEDS: Tamsulosin HCl 0.4 MG Capsule PO (22:31)
[2023-02-04] MEDS: Finasteride 5 MG Tablet PO (22:31)
[2023-02-04] MEDS: Cephalexin 500 MG Capsule PO (22:31)
[2023-02-04] MEDS: MELATONIN 3 MG TABLET PO (22:52)
[2023-02-05] VITALS (11 sets, daily range): BP systolic 92–130; BP diastolic 57–103; PULSE 72–116; RESP 16–18; TEMP 36.5–36.9; O2SAT 97–100; BMI 33.3
[2023-02-05 05:41] LABS: Vitamin B12 345 pg/mL (211-911)
[2023-02-05 05:51] LABS: ALB/GLOB Ratio 1.2 RATIO (0.9-2.4); AST(SGOT) 23 U/L (15-37); Alanine Aminotransfer ALT/SGPT 39 U/L (16-61); Albumin, Serum 3.4 g/dL (3.2-5.0); Alkaline Phosphatase 68 U/L (45-117); Anion Gap 3 (5-15); BUN 19 mg/dL (7-18); BUN/Creat Ratio 14.2 RATIO (10-20); Calcium,Total 8.8 mg/dL (8.5-10.1); Chloride 105 mmol/L (98-107); Creatinine, Serum 1.34 mg/dL (0.70-1.30); EST Glomerular Filtration Rate 54 mL/min (>60); Est Glom Filt Rate - Afr Amer 66 mL/min (>60); Estimated Creatinine Clearance 53.08 ml/min; Globulin 2.9 g/dL (2.2-4.2); Glucose 103 mg/dL (74-106); Magnesium 1.7 mg/dL (1.6-2.6); Potassium 3.7 mmol/L (3.5-5.1); Protein, Total 6.3 g/dL (6.4-8.2); Sodium Level 140 mmol/L (136-145); Thyroid Stim Hormone (TSH) 1.58 uIU/mL (0.358-3.74)
[2023-02-05] MEDS: Metoprolol Tartrate 5 MG/5 ML Vial IV (08:41)
[2023-02-05] MEDS: 0.9% Saline Lock 10 ML Syringe IV ×2 (08:41→17:03)
[2023-02-05] MEDS: LINAGLIPTIN 5 MG TABLET PO (08:47)
[2023-02-05] MEDS: Aspirin E.C. 81 MG Tablet PO (08:47)
[2023-02-05] MEDS: Metoprolol Tartrate 25 MG Tablet PO ×2 (08:47→21:35)
[2023-02-05] MEDS: metFORMIN HCl 500 MG Tablet PO ×2 (08:47→17:03)
[2023-02-05] MEDS: Doxycycline 100 MG CAPSULE PO ×2 (08:47→21:34)
[2023-02-05] MEDS: Cephalexin 500 MG Capsule PO ×2 (08:47→21:34)
[2023-02-05] MEDS: Furosemide 40 MG/4 ML Vial IV ×2 (08:48→17:03)
[2023-02-05] MEDS: Enoxaparin 40 MG/0.4 ML Syringe SC (08:48)
--- NOTE | 2023-02-05 09:10 | PN.HOSP_ITS ---
Reason for Visit Reason for Visit: Diagnoses Obesity, unspecified (02/04/23) Chronic atrial fibrillation, unspecified (02/04/23) Heart failure, unspecified (02/04/23) Weakness (02/04/23) Personal history of other endocrine, nutritional and metabolic disease (02/04/23) Subjective Subjective Feeling much better today than he had been still significantly short of breath Objective Data Objective Data Vital Signs: Vital Signs Temp Pulse Resp BP Pulse Ox O2 Del Method O2 Flow Rate 97.7 F L 116 H 18 130/103 H 97 Nasal Cannula 2 02/05/23 08:35 02/05/23 08:47 02/05/23 08:35 02/05/23 08:47 02/05/23 08:35 02/05/23 08:35 02/05/23 08:35 Oxygen Flow Rate (L/min) 2 Oxygen Delivery Method Nasal Cannula Weight: 124.1 kg Body Mass Index (BMI) 33.3 Intake & Output: Intake and Output for Last 24 Hours 02/03/23 02/04/23 02/05/23 23:59 23:59 23:59 Intake Total 1155 / 1395 480 / 480 Output Total 375 / 1675 1550 / 1550 Balance 780 / -280 -1070 / -1070 Lab / Micro Data Result Diagrams: 02/04/23 10:52 02/05/23 04:15 Labs: Laboratory Results - last 24 hr 02/04/23 10:52: WBC 7.4, RBC 4.65, Hgb 13.8, Hct 43.8, MCV 94.2 H, MCH 29.7, MCHC 31.5 L, RDW Std Deviation 49.2 H, RDW Coeff of Sasha 14.3, Plt Count 175, MPV 11.1, Immature Gran % (Auto) 0.300, Neut % (Auto) 74.0 H, Lymph % (Auto) 14.9 L, [place] % (Auto) 7.7, Eos % (Auto) 2.6, Baso % (Auto) 0.5, Absolute Neuts (auto) 5.4, Absolute Lymphs (auto) 1.10, Nucleated RBC % 0 02/04/23 10:52: Sodium 139, Potassium 4.0, Chloride 106, Carbon Dioxide 31.0, Anion Gap 2 L, BUN 20 H, Creatinine 1.37 H, Estim Creat Clear Calc 51.92, Est GFR (MDRD) Af Amer 64, Est GFR (MDRD) Non-Af 53 L, BUN/Creatinine Ratio 14.6, Glucose 138 H, Calcium 9.1, Total Bilirubin 1.10 H, AST 23, ALT 46, Alkaline Phosphatase 78, Troponin I High Sens 31, Total Protein 6.9, Albumin 3.6, Globulin 3.3, Albumin/Globulin Ratio 1.1 02/04/23 10:52: B-Natriuretic Peptide 473.4 H 02/04/23 12:30: Urine Color Yellow, Urine Clarity Sl. Cloudy, Urine pH 6.5, Ur Specific [place] 1.010, Urine Protein 30 H, Urine Glucose (UA) Normal, Urine Ketones 5 H, Urine Occult Blood 10 H, Urine Nitrite Negative, Urine Bilirubin Negative, Urine Urobilinogen Normal, Ur Leukocyte Esterase 25 H, Urine RBC 0-5 SEEN, Urine WBC 0-5 SEEN, Ur Squamous Epith Cells 0-5 SEEN, Urine Bacteria 0 SE EN, Urine Mucus 0 SEEN 02/05/23 04:15: Sodium 140, Potassium 3.7, Chloride 105, Carbon Dioxide 32.0, Anion Gap 3 L, BUN 19 H, Creatinine 1.34 H, Estim Creat Clear Calc 53.08, Est GFR (MDRD) Af Amer 66, Est GFR (MDRD) Non-Af 54 L, BUN/Creatinine Ratio 14.2, Glucose 103, Calcium 8.8, Magnesium 1.7, Total Bilirubin 1.20 H, AST 23, ALT 39, Alkaline Phosphatase 68, Total Protein 6.3 L, Albumin 3.4, Globulin 2.9, Albumin/Globulin Ratio 1.2, TSH 1.58 02/05/23 04:15: Vitamin B12 345 Micro: Microbiology 02/04/23 11:14 Nasal Secretion SARS-CoV-2 & FLU Antigen (Rapid) - Final Radiography Diagnostic Testing: Radiology Impression Brain CT 02/04/23 11:09 IMPRESSION: Chronic involutional changes of the brain, no acute hemorrhage. Electronically Signed: Gene Moses MD at 12:26 EDT Reading Location ID and State: [facility] / [place] , Service support , ADDENDUM: 02/04/23 1244 IMPRESSION: undefined Chest X-Ray 02/04/23 11:45 IMPRESSION: Pulmonary vascular congestion/CHF with small bilateral pleural effusions which has slightly worsened/progressed since the previous study. Electronically Signed: Gene Moses MD at 12:27 EDT Reading Location ID and State: [address] [place] [address] , Service support , Echocardiogram 02/04/23 14:33 Interpretation Summary Moderately dilated left ventricle. Moderately severe global left ventricular systolic dysfunction. The left ventricular ejection fraction is 35 %. Unable to assess diastolic dysfunction due to arrhythmia. The left atrium is mildly enlarged. Mild (1+) mitral valve insufficiency. Ordering Physician: Ashely Sung Referring Physician: Jack Joe Performed By: Mary Beth Hollingsworth RCS Rhythm Strip Rhythm Strip: A-fib Rate: 100 Ectopy: PVC(s) Physical Exam Narrative General: Alert, oriented, no apparent distress HEENT: Atraumatic, normocephalic Eyes: Anicteric, normal conjunctiva, extraocular movements grossly intact Neck: Supple Respiratory: Somewhat diminished at the bases, slight increased work of breathing but not profoundly so Cardiovascular: Regular rate and rhythm GI: Soft, nontender, nondistended Extremities: 1-2+ bilateral lower extremity pitting edema Musculoskeletal: Moving all extremities Neuro: No overt focal neurological deficits Skin: Chronic changes of bilateral lower extremities with some excoriations appreciated, have some small bulla not presently draining on lower extremities Psych: Cooperative Assessment & Plan Assessment/Plan (1) Acute CHF: (2) Chronic a-fib: (3) History of diabetes mellitus, type II: (4) Obesity: (5) Generalized weakness: PLAN: Plan #Acute exacerbation of heart failure with reduced ejection fraction, likely with previous chronic preserved ejection fraction -Unclear duration of reduced EF as last echocardiogram was in 2018 -Echo this admission showed EF of 35% and unable to assess diastolic dysfunction due to arrhythmia -Is responding to 40 IV Lasix twice daily, will continue at this time and monitor I's and O's and daily weights -Has had some periods of tachycardia despite current medication and suspect heart failure is either hypertensive or tachycardia mediated but will likely need a further ischemic work-up once out of acute exacerbation #Mild cellulitis involving both lower extremities right more than the left -Start on oral antibiotics with Keflex 500 mg 3 times a day and doxycycline 100 mg twice a day. #Type 2 diabetes mellitus -Glucose checks and sliding scale insulin #CKD stage IIIb -Avoid nephrotoxic agents #Chronic atrial fibrillation/history of PE -Patient with [id number] of 5 -Based on previous documentation he was taken off of Eliquis due to hematuria -Given high [id number] score and his risk factors will start on Eliquis -Would advise further work-up and evaluation of hematuria on an outpatient basis #Hypertension -Continue antihypertensives. #Generalized weakness -Unclear etiology but pulmonary likely secondary to underlying CHF -Physical and Occupational Therapy to see and evaluate -May need short-term rehab. #Low mood and anxiety -On second evaluation of patient with family members in the room they reported he has been down and also anxious -He was concerned that it was due to the Lasix that he takes as it has been wor sening over the past couple weeks, discussed effect of heart failure on anxiety and mood -Does seem that he has had some problems with it outside of this exacerbation however, per he and family request we will start antidepressant, will plan to start Zoloft as this is routinely well-tolerated #DVT ppx: John Gilbert MD Time spent in the patient's overall evaluation,decision-making process, review of diagnostic data, adjustment of management, discussion with other providers, nursing nursing and ancillary staff involved in patient's care documentation, 30 minutes Charges/Coding Visit Charges Inpatient E&M: 70443 Subs Hosp L2
[2023-02-05] MEDS: Magnesium Sulfate 4gm/100mL 4 GM/100 ML IV.SOLN. IV (10:29)
--- NOTE | 2023-02-05 15:45 | CASEMGMT ---
Addendum entered by Haritha Grier 02/05/23 16:54: A list of HHC providers including quality and resource use data and consistent with the patient?s preferred geographic region, medical needs, and insurance network were provided from the [employer] Guide to pt and family. They will review the list and are aware to pick top 3 choices. CM to f/u with them tomorrow. Original Note: RN?CM?[employer]?CM?to room to meet with patient for initial transition planning/care coordination?assessment.?RN?CM?introduced self and role at [facility].? Pt voices understanding and consents to?assessment?at this time.? Pt sitting up in chair in room in no distress at this time.? and dtr @ bedside. Pt is A/O at this time and answers all questions appropriately.?? Care providers, pharmacy, and demographics verified/updated at this time. PCP: Dr Orr Specialists: none Preferred Pharmacy: [facility] Insurance: [employer] Prescription Benefit:?Yes Living Will/HPOA:?Pt does not currently have LW/HCPOA. LNOK: , Becky Mirza. Dtr, Celena Living Arrangements: Lives w/his in one-story home w/one step to enter. Indep w/bathing and dressing. does assist w/donning his socks. manages pt's medications and appts. They share home tasks. Transportation:?Pt states drives self and states no transportation concerns at this time.? also drives DME: ?States has the following DME:?raised toilet seat, cane when outside, walker when inside, walking stick, lift chair, grab bars, nebulizer, pulse ox. No home O2. ?Pt states no need for further DME at this time.? HHC/SNF: No hx of SNF. Has had HHC in the past. Pt and family interested in HHC. Pt wishes to return home and states has no concerns with going home at time of discharge.? CM?to follow for home oxygen needs and any further discharge planning/needs.? Pt and family voice no further concerns/needs at this time.? Advised them to ask for?CM?if any further questions/concerns/needs arise.? They voice understanding. PLAN:??Home w/HHC. DGiauque BSN?RN?CM
[2023-02-05] MEDS: Mineral Oil/Petrolatum Cr 1.75oz Bottle 1 APPLIC TOPICAL (17:44)
[2023-02-05] MEDS: APIXABAN 5 MG TABLET PO (21:34)
[2023-02-05] MEDS: Atorvastatin Calcium 10 MG Tablet 5 MG PO (21:34)
[2023-02-05] MEDS: Finasteride 5 MG Tablet PO (21:34)
[2023-02-05] MEDS: Tamsulosin HCl 0.4 MG Capsule PO (21:35)
[2023-02-06] VITALS (10 sets, daily range): BP systolic 98–136; BP diastolic 49–99; PULSE 78–103; RESP 16–18; TEMP 36.4–36.9; O2SAT 96–100; BMI 32.8
[2023-02-06 05:49] LABS: Anion Gap 5 (5-15); BUN 25 mg/dL (7-18); BUN/Creat Ratio 16.7 RATIO (10-20); Calcium,Total 8.6 mg/dL (8.5-10.1); Chloride 105 mmol/L (98-107); EST Glomerular Filtration Rate 48 mL/min (>60); Est Glom Filt Rate - Afr Amer 58 mL/min (>60); Estimated Creatinine Clearance 47.42 ml/min; Glucose 105 mg/dL (74-106); Magnesium 2.4 mg/dL (1.6-2.6); Potassium 3.7 mmol/L (3.5-5.1); Sodium Level 141 mmol/L (136-145)
[2023-02-06] MEDS: metFORMIN HCl 500 MG Tablet PO ×2 (09:08→16:14)
[2023-02-06] MEDS: APIXABAN 5 MG TABLET PO ×2 (09:08→21:31)
[2023-02-06] MEDS: Aspirin E.C. 81 MG Tablet PO (09:08)
[2023-02-06] MEDS: LINAGLIPTIN 5 MG TABLET PO (09:08)
[2023-02-06] MEDS: Sertraline 50 MG Tablet PO (09:08)
[2023-02-06] MEDS: Cephalexin 500 MG Capsule PO ×2 (09:08→21:31)
--- NOTE | 2023-02-06 10:24 | PCM.PN.HOSP ---
Reason for Visit Reason for Visit: Diagnoses Obesity, unspecified (02/04/23) Chronic atrial fibrillation, unspecified (02/04/23) Heart failure, unspecified (02/04/23) Weakness (02/04/23) Personal history of other endocrine, nutritional and metabolic disease (02/04/23) Subjective Subjective Continues to improve, breathing improving. Ate breakfast and felt well after that Objective Data Objective Data Vital Signs: Vital Signs Temp Pulse Resp BP Pulse Ox O2 Del Method O2 Flow Rate 98 F 103 H 18 98/49 L 96 Room Air 2 02/06/23 09:05 02/06/23 09:27 02/06/23 09:05 02/06/23 09:27 02/06/23 09:22 02/06/23 09:05 02/06/23 09:22 Oxygen Flow Rate (L/min) 2 Oxygen Delivery Method Room Air Weight: 122.5 kg Body Mass Index (BMI) 32.8 Intake & Output: Intake and Output for Last 24 Hours 02/04/23 02/05/23 02/06/23 23:59 23:59 23:59 Intake Total 1155 / 1395 940 / 1140 200 / 200 Output Total 375 / 1675 2125 / 2325 350 / 350 Balance 780 / -280 -1185 / -1185 -150 / -150 Lab / Micro Data Result Diagrams: 02/04/23 10:52 02/06/23 04:34 Labs: Laboratory Results - last 24 hr 02/06/23 04:34: Sodium 141, Potassium 3.7, Chloride 105, Carbon Dioxide 31.0, Anion Gap 5, BUN 25 H, Creatinine 1.50 H, Estim Creat Clear Calc 47.42, Est GFR (MDRD) Af Amer 58 L, Est GFR (MDRD) Non-Af 48 L, BUN/Creatinine Ratio 16.7, Glucose 105, Calcium 8.6, Magnesium 2.4 Micro: Microbiology 02/04/23 11:14 Nasal Secretion SARS-CoV-2 & FLU Antigen (Rapid) - Final Rhythm Strip Rhythm Strip: A-fib Rate: 100 Ectopy: PVC(s) Physical Exam Narrative General: Alert, oriented, no apparent distress HEENT: Atraumatic, normocephalic Eyes: Anicteric, normal conjunctiva, extraocular movements grossly intact Neck: Supple Respiratory: Somewhat diminished at the bases, no increased work of breathing Cardiovascular: Rate variable GI: Soft, nontender, nondistended Extremities: Legs presently wrapped Musculoskeletal: Moving all extremities Neuro: No overt focal neurological deficits Skin: Has chronic lower extremity changes Psych: Cooperative Assessment & Plan Assessment/Plan (1) Acute CHF: (2) Chronic a-fib: (3) History of diabetes mellitus, type II: (4) Obesity: (5) Generalized weakness: PLAN: Plan #Acute exacerbation of heart failure with reduced ejection fraction, likely with previous chronic preserved ejection fraction -Unclear duration of reduced EF as last echocardiogram was in 2018 -Echo this admission showed EF of 35% and unable to assess diastolic dysfunction due to arrhythmia -Is responding to 40 IV Lasix twice daily, will continue at this time and monitor I's and O's and daily weights -Has had some periods of tachycardia despite current medication and suspect heart failure is either hypertensive or tachycardia mediated but will likely need a further ischemic work-up once out of acute exacerbation -02/06: Continued diuresis. Will begin to decrease dose given improvement in blood pressure. Continue I's and O's and daily weights #Mild cellulitis involving both lower extremities right more than the left -Start on oral antibiotics with Keflex 500 mg 3 times a day and doxycycline 100 mg twice a day. #Type 2 diabetes mellitus -Glucose checks and sliding scale insulin #CKD stage IIIb -Avoid nephrotoxic agents -02/06: Did have slight bump in BUN and creatinine, scaling back on Lasix #Chronic atrial fibrillation/history of PE -Patient with [id number] of 5 -Based on previous documentation he was taken off of Eliquis due to hematuria -Given high [id number] score and his risk factors will start on Eliquis -Would advise further work-up and evaluation of hematuria on an outpatient basis #Hypertension -Continue antihypertensives. #Generalized weakness -Unclear etiology but pulmonary likely secondary to underlying CHF -Physical and Occupational Therapy to see and evaluate -May need short-term rehab. -02/06: Physical therapy today recommends could go home with help #Low mood and anxiety -On second evaluation of patient with family members in the room they reported he has been down and also anxious -He was concerned that it was due to the Lasix that he takes as it has been worsening over the past couple weeks, discussed effect of heart failure on anxiety and mood -Does seem that he has had some problems with it outside of this exacerbation however, per he and family request we will start antidepressant, will plan to start Zoloft as this is routinely well-tolerated #DVT ppx: John Gilbert MD Time spent in the patient's overall evaluation,decision-making process, review of diagnostic data, adjustment of management, discussion with other providers, nursing nursing and ancillary staff involved in patient's care documentation, 30 minutes Charges/Coding Visit Charges Inpatient E&M: 26721 Subs Hosp L2
[2023-02-06] MEDS: Metoprolol Tartrate 25 MG Tablet 12.5 MG PO (10:45)
[2023-02-06] MEDS: Furosemide 20 MG/2 ML VIAL IV (10:45)
[2023-02-06] MEDS: 0.9% Saline Lock 10 ML Syringe IV (10:46)
--- NOTE | 2023-02-06 13:27 | WOUNDNOTE ---
wound photo: right lower leg
--- NOTE | 2023-02-06 13:28 | WOUNDNOTE ---
wound photo: right foot
--- NOTE | 2023-02-06 13:28 | WOUNDNOTE ---
wound photo: left lower leg
--- NOTE | 2023-02-06 13:39 | CASEMGMT ---
Addendum entered by Audrey Sher 02/06/23 14:53: EMILY JIMENEZ received call back from [facility] and they are able to accept the patient with planned start of care for Thursday. [facility] requesting be taught wound care prior to discharge and to send some supplies home with patient at discharge. EMILY CM update floor RN of request. RN BARBARA updated patient and . Original Note: EMILY JIMENEZ in to discuss HHC at discharge. Patient states has the list. EMILY JIMENEZ called , Becky. She would like [facility]. EMILY JIMENEZ called [facility] and made referral, awaiting acceptance. CM will continue to follow this patient and plan for a safe discharge.
[2023-02-06] MEDS: Doxycycline 100 MG CAPSULE PO ×2 (14:05→21:32)
[2023-02-06] MEDS: Atorvastatin Calcium 10 MG Tablet 5 MG PO (21:30)
[2023-02-06] MEDS: Tamsulosin HCl 0.4 MG Capsule PO (21:31)
[2023-02-06] MEDS: Finasteride 5 MG Tablet PO (21:32)
[2023-02-06] MEDS: Metoprolol Tartrate 25 MG Tablet PO (23:00)
[2023-02-07] VITALS (8 sets, daily range): BP systolic 96–138; BP diastolic 49–92; PULSE 78–99; RESP 16–18; TEMP 36.6–36.7; O2SAT 92–98
[2023-02-07 06:19] LABS: Absolute Lymphocyte Count 1.49 X10^3/uL (0.83-4.51); Absolute Neutrophil Count 3.9 X10^3/uL (2.0-7.7); Basophil# 0.04 X10^3/uL; Basophil% 0.6 % (0-1); Eosinophil# 0.43 X10^3/uL; Eosinophils% 6.7 % (0-5); Hematocrit 38.4 % (40-54); Hemoglobin 12.1 g/dL (13.0-16.5); Lymphocyte # 1.49 X10^3/ul (0.83-4.51); Lymphocyte % 23.1 % (19-41); Mean Corp Hgb Conc 31.5 g/dL (32-36); Mean Corpuscular Hgb 29.7 pg (27.0-32.0); Mean Corpuscular Volume 94.3 fL (80-94); Mean Platelet Vol. 11.1 fl (6.2-12.0); Monocyte# 0.59 X10^3/uL; Monocyte% 9.2 % (0-10); NRBC Flagged by Analyzer 0 % (0-5); Neutrophil # 3.86 X10^3/uL (2.7-7.7); Neutrophil % 59.9 % (47-70); Platelet Count 151 K/mm3 (150-450); RBC Distribution Width CV 14.1 % (11.6-14.6); Red Blood Count 4.07 M/mm3 (4.6-6.2); White Blood Count 6.4 K/mm3 (4.4-11.0)
[2023-02-07 07:05] LABS: Anion Gap 3 (5-15); BUN 33 mg/dL (7-18); Calcium,Total 8.8 mg/dL (8.5-10.1); Chloride 103 mmol/L (98-107); Creatinine, Serum 1.57 mg/dL (0.70-1.30); EST Glomerular Filtration Rate 45 mL/min (>60); Est Glom Filt Rate - Afr Amer 55 mL/min (>60); Glucose 101 mg/dL (74-106); Potassium 3.8 mmol/L (3.5-5.1); Sodium Level 138 mmol/L (136-145)
[2023-02-07] MEDS: Cephalexin 500 MG Capsule PO ×2 (08:20→20:51)
[2023-02-07] MEDS: Doxycycline 100 MG CAPSULE PO ×2 (08:20→20:52)
[2023-02-07] MEDS: metFORMIN HCl 500 MG Tablet PO ×2 (08:20→17:11)
[2023-02-07] MEDS: LINAGLIPTIN 5 MG TABLET PO (08:20)
[2023-02-07] MEDS: Sertraline 50 MG Tablet PO (08:20)
[2023-02-07] MEDS: APIXABAN 5 MG TABLET PO ×2 (08:20→20:52)
[2023-02-07] MEDS: Aspirin E.C. 81 MG Tablet PO (08:20)
[2023-02-07] MEDS: Metoprolol Tartrate 25 MG Tablet PO ×2 (08:23→20:57)
[2023-02-07] MEDS: Furosemide 40 MG Tablet PO (08:24)
--- NOTE | 2023-02-07 10:28 | PN.HOSP_ITS ---
Reason for Visit Reason for Visit: Diagnoses Obesity, unspecified (02/04/23) Chronic atrial fibrillation, unspecified (02/04/23) Heart failure, unspecified (02/04/23) Weakness (02/04/23) Personal history of other endocrine, nutritional and metabolic disease (02/04/23) Subjective Subjective Continues to feel better Objective Data Objective Data Vital Signs: Vital Signs Temp Pulse Resp BP Pulse Ox O2 Del Method O2 Flow Rate 97.8 F 82 18 96/49 L 96 Room Air 2 02/07/23 08:11 02/07/23 08:23 02/07/23 08:11 02/07/23 08:11 02/07/23 08:11 02/07/23 08:11 02/07/23 07:45 Oxygen Flow Rate (L/min) 2 Oxygen Delivery Method Room Air Weight: 122.5 kg Body Mass Index (BMI) 32.8 Intake & Output: Intake and Output for Last 24 Hours 02/05/23 02/06/23 02/07/23 23:59 23:59 23:59 Intake Total 940 / 1140 560 / 560 Output Total 2125 / 2325 1350 / 1750 500 / 500 Balance -1185 / -1185 -790 / -1190 -500 / -500 Lab / Micro Data Result Diagrams: 02/07/23 06:00 02/07/23 06:00 Labs: Laboratory Results - last 24 hr 02/07/23 06:00: Sodium 138, Potassium 3.8, Chloride 103, Carbon Dioxide 32.0, Anion Gap 3 L, BUN 33 H, Creatinine 1.57 H, Estim Creat Clear Calc 45.30, Est GFR (MDRD) Af Amer 55 L, Est GFR (MDRD) Non-Af 45 L, BUN/Creatinine Ratio 21.0 H , Glucose 101, Calcium 8.8, Magnesium 2.0 02/07/23 06:00: WBC 6.4, RBC 4.07 L, Hgb 12.1 L, Hct 38.4 L, MCV 94.3 H, MCH 29. 7, MCHC 31.5 L, RDW Std Deviation 49.0 H, RDW Coeff of Sasha 14.1, Plt Count 151, MPV 11.1, Immature Gran % (Auto) 0.500, Neut % (Auto) 59.9, Lymph % (Auto) 23.1, [place] % (Auto) 9.2, Eos % (Auto) 6.7 H, Baso % (Auto) 0.6, Absolute Neuts (auto) 3.9, Absolute Lymphs (auto) 1.49, Nucleated RBC % 0 Micro: Microbiology 02/04/23 11:14 Nasal Secretion SARS-CoV-2 & FLU Antigen (Rapid) - Final Rhythm Strip Rhythm Strip: A-fib Rate: 100 Ectopy: PVC(s) Physical Exam Narrative General: Alert, oriented, no apparent distress HEENT: Atraumatic, normocephalic Eyes: Anicteric, normal conjunctiva, extraocular movements grossly intact Neck: Supple Respiratory: Somewhat diminished at the bases, no increased work of breathing Cardiovascular: Rate variable GI: Soft, nontender, nondistended Extremities: Legs presently wrapped Musculoskeletal: Moving all extremities Neuro: No overt focal neurological deficits Skin: Has chronic lower extremity changes Psych: Cooperative Assessment & Plan Assessment/Plan (1) Acute CHF: (2) Chronic a-fib: (3) History of diabetes mellitus, type II: (4) Obesity: (5) Generalized weakness: PLAN: Plan #Acute exacerbation of heart failure with reduced ejection fraction, likely with previous chronic preserved ejection fraction -Unclear duration of reduced EF as last echocardiogram was in 2018 -Echo this admission showed EF of 35% and unable to assess diastolic dysfunction due to arrhythmia -Is responding to 40 IV Lasix twice daily, will continue at this time and monitor I's and O's and daily weights -Has had some periods of tachycardia despite current medication and suspect heart failure is either hypertensive or tachycardia mediated but will likely need a further ischemic work-up once out of acute exacerbation -02/06: Continued diuresis. Will begin to decrease dose given improvement in blood pressure. Continue I's and O's and daily weights -02/07: Possibly home tomorrow pending how he is doing in the a.m. #Mild cellulitis involving both lower extremities right more than the left -Start on oral antibiotics with Keflex 500 mg 3 times a day and doxycycline 100 mg twice a day. #Type 2 diabetes mellitus -Glucose checks and sliding scale insulin #CKD stage IIIb -Avoid nephrotoxic agents -02/06: Did have slight bump in BUN and creatinine, scaling back on Lasix #Chronic atrial fibrillation/history of PE -Patient with [id number] of 5 -Based on previous documentation he was taken off of Eliquis due to hematuria -Given high [id number] score and his risk factors will start on Eliquis -Would advise further work-up and evaluation of hematuria on an outpatient basis #Hypertension -Continue antihypertensives. #Generalized weakness -Unclear etiology but pulmonary likely secondary to underlying CHF -Physical and Occupational Therapy to see and evaluate -May need short-term rehab. -02/06: Physical therapy today recommends could go home with help #Low mood and anxiety -On second evaluation of patient with family members in the room they reported he has been down and also anxious -He was concerned that it was due to the Lasix that he takes as it has been worsening over the past couple weeks, discussed effect of heart failure on anxiety and mood -Does seem that he has had some problems with it outside of this exacerbation however, per he and family request we will start antidepressant, will plan to start Zoloft as this is routinely well-tolerated #DVT ppx: John Gilbert MD Time spent in the patient's overall evaluation,decision-making process, review of diagnostic data, adjustment of management, discussion with other providers, nursing nursing and ancillary staff involved in patient's care documentation, 30 minutes Charges/Coding Visit Charges Inpatient E&M: 59884 Subs Hosp L2
--- NOTE | 2023-02-07 11:21 | NURSING ---
EKG documentation per electronic/tele monitoring
[2023-02-07] MEDS: Atorvastatin Calcium 10 MG Tablet 5 MG PO (20:51)
[2023-02-07] MEDS: Finasteride 5 MG Tablet PO (20:51)
[2023-02-07] MEDS: Tamsulosin HCl 0.4 MG Capsule PO (20:52)
[2023-02-08] VITALS (7 sets, daily range): BP systolic 94–123; BP diastolic 63–92; PULSE 80–95; RESP 16–18; TEMP 36.6–36.7; O2SAT 95–98
[2023-02-08 07:01] LABS: Anion Gap 3 (5-15); BUN 34 mg/dL (7-18); BUN/Creat Ratio 22.4 RATIO (10-20); Calcium,Total 8.8 mg/dL (8.5-10.1); Chloride 105 mmol/L (98-107); Creatinine, Serum 1.52 mg/dL (0.70-1.30); EST Glomerular Filtration Rate 47 mL/min (>60); Est Glom Filt Rate - Afr Amer 57 mL/min (>60); Estimated Creatinine Clearance 46.79 ml/min; Glucose 98 mg/dL (74-106); Potassium 3.9 mmol/L (3.5-5.1); Sodium Level 139 mmol/L (136-145)
[2023-02-08] MEDS: metFORMIN HCl 500 MG Tablet PO (08:54)
[2023-02-08] MEDS: Aspirin E.C. 81 MG Tablet PO (08:54)
[2023-02-08] MEDS: LINAGLIPTIN 5 MG TABLET PO (08:54)
[2023-02-08] MEDS: Doxycycline 100 MG CAPSULE PO (10:29)
[2023-02-08] MEDS: APIXABAN 5 MG TABLET PO (10:29)
[2023-02-08] MEDS: Cephalexin 500 MG Capsule PO (10:29)
[2023-02-08] MEDS: Furosemide 40 MG Tablet PO (10:29)
[2023-02-08] MEDS: Sertraline 50 MG Tablet PO (10:42)
[2023-02-08] MEDS: Metoprolol Tartrate 25 MG Tablet 12.5 MG PO (11:24)
--- NOTE | 2023-02-08 12:02 | DCINST_ITS ---
Discharge Instructions Diet Discharge Diet: - (DASH diet. Please limit your sodium intake to less than 3 g/day) Activity Discharge Activity: Return to Normal Activity Follow Up Care Test Results: Test results from this visit will be discussed in further detail at your follow- up appointment, if applicable. Discharge Plan Admission Admit Date/Time: 02/04/23 19:26 Primary Reason for Your Visit: Shortness of breath Attending Provider: Liliam Gilbert Primary Care Provider: Martha Orr Consulting Providers: Ashely Sung Instructions Patient Instructions: Coping with Heart Failure, Cardiomyopathy Dc, ED Heart Failure, Congestive (CHF), ED CHF Left Side Additional Instructions / Restrictions: DISCHARGE INSTRUCTIONS PLEASE READ *Please take this with you to your next doctors appointment* -You were diagnosed with a rapid heart rate that was due to your atrial fibrillation as well as congestive heart failure. You have had multiple medications that have been adjusted -You have been started on Eliquis 5 mg twice daily which you will take due to your abnormal heart rhythm. 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 Please do not take both of these together. Please check your blood pressure and heart rate daily, if your heart rate is less than 60 or if your systolic blood pressure (the top number) is less than 95 please contact your physician for further instructions -You were started on a medication to help your mood and anxiety, sertraline 50 mg. Please continue to take this every morning. This can be further adjusted on an outpatient basis -Your prescriptions have been sent to preferred pharmacy on file, [facility] in [place] -Your blood pressure tends to be lower in the morning which may be due to your finasteride and tamsulosin. Recommend checking your blood pressure daily, if you continue to have a systolic blood pressure less than 100 in the mornings may need to discuss alternative options with your primary care physician so that you may have further heart failure medications added and adjusted -Additionally you were noted to have mild cellulitis in your legs and you will need to continue Keflex and doxycycline each with 1 dose tonight and then twice daily for 2 more days -Would recommend lab work (BMP) to check your kidney function in 2 to 3 days through your primary care physician's office. Please call their office upon discharge to obtain order for lab work. -You will need to follow-up with cardiology upon discharge as you may need a repeat stress test or heart catheterization due to your heart failure and for further management of your heart failure medications, please call the office of Dr. Baker upon discharge to schedule your appointment for further work-up (ph [phone]) -Weigh yourself every day. A sudden weight gain can mean you are retaining fluid. Weigh yourself at the same time of day and in the same kind of clothes. Ideally, weigh yourself first thing in the morning after you empty your bladder, but before you eat breakfast. -Please call your physician if your weight goes up by more than 2 pounds in 1 day or 5 pounds in 1 week. This can be a sign that you are retaining more fluid than you should be. -Please call your primary care provider's office upon discharge to schedule a hospital follow up within 1 week. -For any concerning signs or symptoms please call 911 or proceed to the nearest emergency department -Please limit your sodium intake to less than 3 g/day. Here are tips: Limit canned, dried, packaged, and fast foods. Don't add salt to your food at the table. Season foods with herbs instead of salt when you cook. When you eat out, ask that the analytic programmer not add any salt to your dish. Don't eat fried or greasy foods. Be careful of bottled beverages. They can contain a lot of salt -Call 911 right away if you have: -Severe shortness of breath, such that you can't catch your breath even while resting -Severe chest pain that does not resolve with rest or nitroglycerin -[place], foamy mucus with cough and shortness of breath -An ongoing rapid or irregular heartbeat -Passing out or fainting -Stroke symptoms such as sudden numbness or weakness on one side of your face, arm, or leg or sudden confusion, trouble speaking or vision changes Discharge Orders/Prescriptions Prescriptions: New doxycycline monohydrate 100 mg Capsule 100 mg PO BID 2 Days Qty: 5 0RF cephalexin 500 mg Capsule 500 mg PO BID 2 Days Qty: 5 0RF sertraline 50 mg Tablet 50 mg PO DAILY 30 Days Qty: 30 0RF Eliquis 5 mg Tablet 5 mg PO BID 30 Days Qty: 60 0RF metoprolol succinate 25 mg tablet extended release 24 hr 25 mg PO DAILY 30 Days Qty: 30 0RF Continued simvastatin 10 MG tablet 10 mg PO QHS tamsulosin 0.4 MG capsule 0.4 mg PO QHS finasteride 5 MG tablet 5 mg PO QHS saxagliptin 5 mg tablet 5 mg PO BREAKFAST metformin 500 mg tablet 500 mg PO BID aspirin 81 mg Tablet,Delayed Release (Dr/Ec) 81 mg PO DAILY Changed furosemide 20 MG tablet 20 mg PO BREAKFAST 30 Days Qty: 30 0RF Discontinued metoprolol tartrate 25 MG tablet 12.5 mg PO BID Referrals / Follow Up: Ra Baker MD [Med Staff - Active Staff] - See Referral Note (You will need to follow-up with cardiology upon discharge, please call the office of Dr. Baker upon discharge to schedule your hospital follow-up appointment (ph [phone])) Martha Orr DO [Primary Care Provider] - Within 1 Week Disposition Disposition (needs filled in before D/C Order can be placed): Home Health Service
--- NOTE | 2023-02-08 12:04 | PCM.DC.SUM ---
Providers Date of Admission: 02/04/23 Date of Discharge: 02/08/23 Primary Care Physician: Dr. 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 Routine Comment: pt has lower legs blisters that are busting open Reason for Consult:: lower leg blisters Reason For Visit: ACUTE CHF, DEBILITY Diagnosis Discharge Diagnosis (1) Acute CHF: Status: Acute Code(s): I50.9 - Heart failure, unspecified (2) Chronic a-fib: Status: Chronic Code(s): I48.20 - Chronic atrial fibrillation, unspecified (3) Obesity: Status: Chronic Code(s): E66.9 - Obesity, unspecified (4) Generalized weakness: Status: Acute Code(s): R53.1 - Weakness Plan #Acute exacerbation of heart failure with reduced ejection fraction, likely with previous chronic preserved ejection fraction #Mild cellulitis involving both lower extremities right more than the left #Type 2 diabetes mellitus #CKD stage IIIb #Chronic atrial fibrillation/history of PE #Hypertension #Generalized weakness #Low mood and anxiety Medications at Discharge Home Medications finasteride 5 mg tablet 5 mg PO QHS PROSTATE 10/17/14 simvastatin 10 mg tablet 10 mg PO QHS CHOLESTEROL 10/17/14 tamsulosin 0.4 mg capsule 0.4 mg PO QHS PROSTATE 10/17/14 saxagliptin 5 mg tablet 5 mg PO BREAKFAST DIABETES 07/23/19 aspirin 81 mg tablet,delayed release 81 mg PO DAILY HEART HEALTH 02/04/23 metformin 500 mg tablet 500 mg PO BID DIABETES 02/04/23 apixaban 5 mg tablet (Eliquis) 5 mg PO BID 30 days #60 tabs 02/08/23 cephalexin 500 mg capsule 500 mg PO BID 2 days #5 caps 02/08/23 doxycycline monohydrate 100 mg capsule 100 mg PO BID 2 days #5 caps 02/08/23 furosemide 20 mg tablet 20 mg PO BREAKFAST FLUID 30 days #30 tabs 02/08/23 metoprolol succinate 25 mg tablet,extended release 24 hr 25 mg PO DAILY 30 days #30 tabs 02/08/23 sertraline 50 mg tablet 50 mg PO DAILY 30 days #30 tabs 02/08/23 Hospital Course Procedures Transthoracic echo Summary of Care Provided Minutes Spent on Discharge: 34 Hospital Course: 82-year-old male with history of chronic A-fib, hypertension, BPH, VTE who presented to [facility] 02/04 due to progressive weakness for several weeks increasing shortness of breath for several days. Is suspected he had fluid overload and was started on IV Lasix 40 twice daily. Echo did show EF of 35% and he responded well to IV diuresis. For his atrial fibrillation he was resumed on Eliquis. Previous documentation indicated he stopped it due to hematuria years ago, restarted if symptoms recur will need to discuss with PCP about further hematuria work-up. Medications were adjusted and he got stronger and PT then felt he could go home with help. Additionally on admission noted to have lower extremity cellulitis and was on Keflex and doxycycline. Overall did quite well and on day of discharge felt much better. Discharge instructions as followed: -You were diagnosed with a rapid heart rate that was due to your atrial fibrillation as well as congestive heart failure.? You have had multiple medications that have been adjusted -You have been started on Eliquis 5 mg twice daily which you will take due to your abnormal heart rhythm.? 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 Please do not take both of these together.? Please check your blood pressure and heart rate daily, if your heart rate is less than 60 or if your systolic blood pressure (the top number) is less than 95 please contact your physician for further instructions -You were started on a medication to help your mood and anxiety, sertraline 50 mg.? Please continue to take this every morning.? This can be further adjusted on an outpatient basis -Your prescriptions have been sent to preferred pharmacy on file, [facility] in [place] -Your blood pressure tends to be lower in the morning which may be due to your finasteride and tamsulosin.? Recommend checking your blood pressure daily, if you continue to have a systolic blood pressure less than 100 in the mornings may need to discuss alternative options with your primary care physician so that you may have further heart failure medications added and adjusted -Additionally you were noted to have mild cellulitis in your legs and you will need to continue Keflex and doxycycline each with 1 dose tonight and then twice daily for 2 more days -Would recommend lab work (BMP) to check your kidney function in 2 to 3 days through your primary care physician's office.? Please call their office upon discharge to obtain order for lab work. -You will need to follow-up with cardiology upon discharge as you may need a repeat stress test or heart catheterization due to your heart failure and for further management of your heart failure medications, please call the office of Dr. Baker upon discharge to schedule your appointment for further work-up ) -Weigh yourself every day. A sudden weight gain can mean you are retaining fluid. Weigh yourself at the same time of day and in the same kind of clothes. Ideally, weigh yourself first thing in the morning after you empty your bladder, but before you eat breakfast. -Please call your physician if your weight goes up by more than 2 pounds in 1 day or 5 pounds in 1 week. This can be a sign that you are retaining more fluid than you should be. -Please call your primary care provider's office upon discharge to schedule a hospital follow up within 1 week. -For any concerning signs or symptoms please call 911 or proceed to the nearest emergency department -Please limit your sodium intake to less than 3 g/day. Here are tips: Limit canned, dried, packaged, and fast foods. Don't add salt to your food at the table. Season foods with herbs instead of salt when you cook. When you eat out, ask that the professor of communication arts not add any salt to your dish. Don't eat fried or greasy foods. Be careful of bottled beverages. They can contain a lot of salt -Call 911 right away if you have: -Severe shortness of breath, such that you can't catch your breath even while resting -Severe chest pain that does not resolve with rest or nitroglycerin -[place], foamy mucus with cough and shortness of breath -An ongoing rapid or irregular heartbeat -Passing out or fainting -Stroke symptoms such as sudden numbness or weakness on one side of your face, arm, or leg or sudden confusion, trouble speaking or vision changes Physical Exam Narrative General: Alert, oriented, no apparent distress HEENT: Atraumatic, normocephalic Eyes: Anicteric, normal conjunctiva, extraocular movements grossly intact Neck: Supple Respiratory: No increased work of breathing, airflow much improved Cardiovascular: Rate variable GI: Soft, nontender, nondistended Extremities: Legs presently wrapped Musculoskeletal: Moving all extremities Neuro: No overt focal neurological deficits Skin: Has chronic lower extremity changes Psych: Cooperative Weight / BMI Weight Weight: 122.5 kg Body Mass Index (BMI) 32.8 ABG / Lab / Microbiology Data Result Diagrams: 02/07/23 06:00 02/08/23 05:55 Laboratory: Laboratory Results - last 24 hr 02/08/23 05:55: Sodium 139, Potassium 3.9, Chloride 105, Carbon Dioxide 31.0, Anion Gap 3 L, BUN 34 H, Creatinine 1.52 H, Estim Creat Clear Calc 46.79, Est GFR (MDRD) Af Amer 57 L, Est GFR (MDRD) Non-Af 47 L, BUN/Creatinine Ratio 22.4 H, Glucose 98, Calcium 8.8, Magnesium 2.0 Microbiology: Microbiology 02/04/23 11:14 Nasal Secretion SARS-CoV-2 & FLU Antigen (Rapid) - Final D/C Instructions Discharge Diet: - (DASH diet. Please limit your sodium intake to less than 3 g/day) Meaningful Use Info Meaningful Use Diagnoses (Choose all that apply): CHF CHF JESS/ARB ordered at discharge?: No Reason JESS/ARB not ordered?: Hypotension Documented LVEF (%): 35 Discharge Plan Admission Admit Date/Time: 02/04/23 19:26 Primary Reason for Your Visit: Shortness of breath Attending Provider: Liliam Gilbert Primary Care Provider: Martha Orr Consulting Providers: Ashely Sung Instructions Patient Instructions: Coping with Heart Failure, Cardiomyopathy Dc, ED Heart Failure, Congestive (CHF), ED CHF Left Side Additional Instructions / Restrictions: DISCHARGE INSTRUCTIONS PLEASE READ *Please take this with you to your next doctors appointment* -You were diagnosed with a rapid heart rate that was due to your atrial fibrillation as well as congestive heart failure. You have had multiple medications that have been adjusted -You have been started on Eliquis 5 mg twice daily which you will take due to your abnormal heart rhythm. 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 Please do not take both of these together. Please check your blood pressure and heart rate daily, if your heart rate is less than 60 or if your systolic blood pressure (the top number) is less than 95 please contact your physician for further instructions -You were started on a medication to help your mood and anxiety, sertraline 50 mg. Please continue to take this every morning. This can be further adjusted on an outpatient basis -Your prescriptions have been sent to [facility] pharmacy on file, [facility] in [place] -Your blood pressure tends to be lower in the morning which may be due to your finasteride and tamsulosin. Recommend checking your blood pressure daily, if you continue to have a systolic blood pressure less than 100 in the mornings may need to discuss alternative options with your primary care physician so that you may have further heart failure medications added and adjusted -Additionally you were noted to have mild cellulitis in your legs and you will need to continue Keflex and doxycycline each with 1 dose tonight and then twice daily for 2 more days -Would recommend lab work (BMP) to check your kidney function in 2 to 3 days through your primary care physician's office. Please call their office upon discharge to obtain order for lab work. -You will need to follow-up with cardiology upon discharge as you may need a repeat stress test or heart catheterization due to your heart failure and for further management of your heart failure medications, please call the office of Dr. Baker upon discharge to schedule your appointment for further work-up (ph [phone]) -Weigh yourself every day. A sudden weight gain can mean you are retaining fluid. Weigh yourself at the same time of day and in the same kind of clothes. Ideally, weigh yourself first thing in the morning after you empty your bladder, but before you eat breakfast. -Please call your physician if your weight goes up by more than 2 pounds in 1 day or 5 pounds in 1 week. This can be a sign that you are retaining more fluid than you should be. -Please call your primary care provider's office upon discharge to schedule a hospital follow up within 1 week. -For any concerning signs or symptoms please call 911 or proceed to the nearest emergency department -Please limit your sodium intake to less than 3 g/day. Here are tips: Limit canned, dried, packaged, and fast foods. Don't add salt to your food at the table. Season foods with herbs instead of salt when you cook. When you eat out, ask that the professor of communication arts not add any salt to your dish. Don't eat fried or greasy foods. Be careful of bottled beverages. They can contain a lot of salt -Call 911 right away if you have: -Severe shortness of breath, such that you can't catch your breath even while resting -Severe chest pain that does not resolve with rest or nitroglycerin -[place], foamy mucus with cough and shortness of breath -An ongoing rapid or irregular heartbeat -Passing out or fainting -Stroke symptoms such as sudden numbness or weakness on one side of your face, arm, or leg or sudden confusion, trouble speaking or vision changes Discharge Orders/Prescriptions Prescriptions: New doxycycline monohydrate 100 mg Capsule 100 mg PO BID 2 Days Qty: 5 0RF cephalexin 500 mg Capsule 500 mg PO BID 2 Days Qty: 5 0RF sertraline 50 mg Tablet 50 mg PO DAILY 30 Days Qty: 30 0RF Eliquis 5 mg Tablet 5 mg PO BID 30 Days Qty: 60 0RF metoprolol succinate 25 mg tablet extended release 24 hr 25 mg PO DAILY 30 Days Qty: 30 0RF Continued simvastatin 10 MG tablet 10 mg PO QHS tamsulosin 0.4 MG capsule 0.4 mg PO QHS finasteride 5 MG tablet 5 mg PO QHS saxagliptin 5 mg tablet 5 mg PO BREAKFAST metformin 500 mg tablet 500 mg PO BID aspirin 81 mg Tablet,Delayed Release (Dr/Ec) 81 mg PO DAILY Changed furosemide 20 MG tablet 20 mg PO BREAKFAST 30 Days Qty: 30 0RF Discontinued metoprolol tartrate 25 MG tablet 12.5 mg PO BID Referrals / Follow Up: Ra Baker MD [Med Staff - Active Staff] - See Referral Note (You will need to follow-up with cardiology upon discharge, please call the office of Dr. Baker upon discharge to schedule your hospital follow-up appointment (ph [phone])) Martha Orr DO [Primary Care Provider] - Within 1 Week Disposition Disposition (needs filled in before D/C Order can be placed): Home Health Service Charges/Coding Visit Charges Inpatient E&M: 16618 Disch Hosp >30min
--- NOTE | 2023-02-08 12:08 | NURSING ---
I spoke with with Luz Maria with [facility] informing her of pt's d/c.
--- NOTE | 2023-02-09 13:06 | NURSING ---
EMILY CM Discharge Follow-up Phone Call: SERENA:Jorgito Strata:4 Date of Call:02/09/23 Time of Call:[id number] Admitting Diagnosis:Acute CHF, Debility Summary of Call: Spoke with patient, he is feeling better. F/U appts are made. Home Health to see him in the morning. No questions with new medications.
== END 2023-02-08 14:57 | disposition home health service (06) | DRG 291 ==
LOC: ED 13:26 → PCU 16:45
PROVIDERS: Admitting Provider Internal Medicine; Emergency Provider Emergency Medicine; PCP Internal Medicine; Referring Provider Emergency Medicine; Visit Provider Internal Medicine
DX: I13.0 Hypertensive heart and chronic kidney disease with heart failure and stage 1 through stage 4 chronic kidney disease, or unspecified chronic kidney disease (principal); I50.33 Acute on chronic diastolic (congestive) heart failure; L03.115 Cellulitis of right lower limb; I48.20 Chronic atrial fibrillation, unspecified; L03.116 Cellulitis of left lower limb; E11.22 Type 2 diabetes mellitus with diabetic chronic kidney disease; Z79.01 Long term (current) use of anticoagulants; N18.32 Chronic kidney disease, stage 3b; E78.5 Hyperlipidemia, unspecified; F41.9 Anxiety disorder, unspecified; F32.A Depression, unspecified; R53.1 Weakness; E66.9 Obesity, unspecified; Z68.32 Body mass index [BMI] 32.0-32.9, adult; Z79.82 Long term (current) use of aspirin; Z79.84 Long term (current) use of oral hypoglycemic drugs; Z79.899 Other long term (current) drug therapy; Z86.711 Personal history of pulmonary embolism
CPT/HCPCS: 36415; 70450; 71046; 80048; 80053; 81001; 82607; 83735; 83880; 84443; 84484; 85025; 87428; 93005; 93306; 94640; 97110; 97116; 97162; 97166; 97530; 97535; 97802; 99285; J7030; A4216; J1940

== ENCOUNTER → 2023-02-11 | Outpatient (CLI) | payer MEDICARE, SELFPAY ==
--- NOTE | 2023-02-11 15:46 | RAD_ITS ---
STUDY: X-RAY CHEST REASON FOR EXAM: Male, 82 years old. Acute congestive heart failure. TECHNIQUE: PA and lateral views of the chest. COMPARISON: February 04, 2023. CT of the chest, March 11, 2018. FINDINGS: Persistent fibrotic changes at the lung bases without acute infiltrate or mass. There is no demonstrated pleural abnormality. Stable mild cardiomegaly. Normal mediastinum and daniel. Normal visualized pulmonary arteries. There is atherosclerotic calcification of the aortic arch with tortuosity. There are diffuse degenerative changes of the visualized thoracic spine. Normal visualized ribs, clavicles, and shoulders. There is no demonstrated abnormality of the visualized soft tissue structures of the upper abdomen. RAD/Chest PA and Lateral IMPRESSION: Bibasilar pulmonary fibrosis with mild cardiomegaly. There is no acute pulmonary abnormality. Electronically Signed: Zeferino Chapman DO at 22:53 EDT ,
== END | disposition home or self-care (01) ==
LOC: MTRAD 15:45
PROVIDERS: PCP Internal Medicine; Referring Provider Internal Medicine; Visit Provider Internal Medicine
DX: I50.9 Heart failure, unspecified (principal)
CPT/HCPCS: 71046

== ENCOUNTER → 2023-02-12 | Outpatient (CLI) | payer MEDICARE, SELFPAY ==
[2023-02-12 17:52] LABS: Anion Gap 3 (5-15); BUN 22 mg/dL (7-18); BUN/Creat Ratio 15.9 RATIO (10-20); Calcium,Total 8.8 mg/dL (8.5-10.1); Chloride 106 mmol/L (98-107); Creatinine, Serum 1.38 mg/dL (0.70-1.30); EST Glomerular Filtration Rate 52 mL/min (>60); Est Glom Filt Rate - Afr Amer 63 mL/min (>60); Glucose 92 mg/dL (74-106); Potassium 3.9 mmol/L (3.5-5.1); Sodium Level 140 mmol/L (136-145)
== END | disposition home or self-care (01) ==
LOC: MTLAB 14:34
PROVIDERS: PCP Internal Medicine; Referring Provider Internal Medicine; Visit Provider Internal Medicine
DX: Z51.81 Encounter for therapeutic drug level monitoring (principal)
CPT/HCPCS: 36415; 80048

== ENCOUNTER 2023-03-03 13:52 | Outpatient (RCR) | payer MEDICARE, SELFPAY ==
[2023-03-03 16:25] LABS: Anion Gap 7 (5-15); BUN 26 mg/dL (7-18); BUN/Creat Ratio 16.2 RATIO (10-20); Calcium,Total 8.9 mg/dL (8.5-10.1); Chloride 105 mmol/L (98-107); EST Glomerular Filtration Rate 44 mL/min (>60); Est Glom Filt Rate - Afr Amer 54 mL/min (>60); Glucose 125 mg/dL (74-106); Potassium 4.1 mmol/L (3.5-5.1); Sodium Level 142 mmol/L (136-145)
== END 2023-03-25 23:59 ==
LOC: HHLAB 13:52
PROVIDERS: PCP Internal Medicine; Visit Provider Internal Medicine Cardiovascular Disease
DX: I13.0 Hypertensive heart and chronic kidney disease with heart failure and stage 1 through stage 4 chronic kidney disease, or unspecified chronic kidney disease (principal); I50.9 Heart failure, unspecified; E11.22 Type 2 diabetes mellitus with diabetic chronic kidney disease; N18.9 Chronic kidney disease, unspecified
CPT/HCPCS: 80048

== ENCOUNTER 2023-03-04 10:15 | Outpatient (RCR) | payer MEDICARE, SELFPAY ==
[2023-02-25 09:18] VITALS: BP 99/59; PULSE 83; RESP 16; TEMP 35.8; BMI 31.0
--- NOTE | 2023-02-25 09:51 | WC ---
PTS STATES NO CHANGE IN MEDS SINCE D/C FROM HOSPITAL.
--- NOTE | 2023-02-25 12:18 | PCM.WC.HP ---
History of Present Illness Date of Service: 02/25/23 Chief Complaint: Edema, lymphedema, chronic venous insufficiency, postphlebitic syndrome with inflammation, varicose veins with inflammation?lower extremities, bilaterally History of Wound: This is a 75-year-old male who presents with bilateral lower leg edema and cellulitis. He was hospitalized and treated and he is here for follow-up. These changes have been present for many years, but have become more prevalent recently. The patient claims to sleep in a flat mattress each night. However, he spends long periods each day in a sitting position. He ambulates in a limited fashion, due to hip problems and balance issues. He requires a cane for ambulation. 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 The patient has a history of pulmonary embolus in ?2. His 1st episode occurred in 2009 following a left total hip replacement procedure. He again had an episode of pulmonary embolization in October 2014, and remains on Xarelto to the current time. It is anticipated that he will remain systemically anticoagulated for a long period of time, perhaps lifelong. He has been previously treated at this facility for similar problems in the past related to venous stasis ulceration. The patient is known to have a history of diabetes mellitus, diabetic neuropathy, hypertension, glaucoma, diabetic retinopathy, syncope, rheumatic fever, and hyperlipidemia. He also has a history of pulmonary embolism. [facility] Medical History Anxiety Asthma Bilateral lower leg cellulitis BPH (benign prostatic hyperplasia) Cardiac LV ejection fraction 30-35% Chest pain Chronic a-fib Depression Essential hypertension GI bleed History of COVID-19 (~08/2022) History of diabetes mellitus History of DVT (deep vein thrombosis) History of pulmonary embolus (PE) Hyperlipidemia Kidney stones Leg edema Lymphedema Migraines Non-smoker Obesity Osteoporosis Pancreatitis Pulmonary fibrosis (02/15/23) Rheumatic fever Stage 3b chronic kidney disease (CKD) Type 2 diabetes mellitus without complications Home Medications finasteride 5 mg tablet 5 mg PO QHS PROSTATE 10/17/14 [History Last Taken 02/03/23] simvastatin 10 mg tablet 10 mg PO QHS CHOLESTEROL 10/17/14 [History Last Taken 02/03/23] tamsulosin 0.4 mg capsule 0.4 mg PO QHS PROSTATE 10/17/14 [History Last Taken 02/03/23] saxagliptin 5 mg tablet 5 mg PO BREAKFAST DIABETES 07/23/19 [History Last Taken 02/04/23] metformin 500 mg tablet 500 mg PO BID DIABETES 02/04/23 [History Last Taken 02/04/23] apixaban 5 mg tablet (Eliquis) 5 mg PO BID 30 days #60 tabs 02/08/23 [Rx Last Taken Unknown] sertraline 50 mg tablet 50 mg PO DAILY 30 days #30 tabs 02/08/23 [Rx Last Taken Unknown] metoprolol succinate 25 mg tablet,extended release 24 hr 25 mg PO BID 30 days #120 tabs 02/18/23 [Rx Last Taken Unknown] furosemide 40 mg tablet 40 mg PO DAILY FLUID #120 tabs 02/20/23 [Rx Last Taken Unknown] Allergy/AdvReac Type Severity Reaction Status Date / Time poliomyelitis vaccine, live AdvReac Other Verified 02/25/23 09:49 oral poliomyelitis vaccine,killed AdvReac Other Verified 02/25/23 09:49 Family History Father Heart disease Surgical History H/O total hip arthroplasty History of removal of eye Social History Smoking Status: Never smoker alcohol intake: current alcohol intake frequency: holidays/special occasions only Alcohol type: wine substance use type: does not use caffeine: Yes Type: coffee Number of servings: 3 ROS Constitutional Constitutional: Reports systems reviewed and no addt'l complaints, except as documented Eyes Eyes: Reports systems reviewed and no addt'l complaints, except as documented ENT HEENT: Reports systems reviewed and no addt'l complaints, except as documented Cardiovascular Cardiovascular: Reports systems reviewed and no addt'l complaints, except as documented Respiratory/Chest Respiratory/Chest: Reports systems reviewed and no addt'l complaints, except as documented Gastrointestinal Gastrointestinal: Reports systems reviewed and no addt'l complaints, except as documented Genitourinary Genitourinary: Reports systems reviewed and no addt'l complaints, except as documented Musculoskeletal Musculoskeletal: Reports systems reviewed and no addt'l complaints, except as documented Integumentary Integumentary: Reports rash, sores and other Details: Lower extremity cellulitis with scabbing and open wounds on bilateral lower legs very superficial most of them are healed. Neurologic Neurologic: Reports systems reviewed and no addt'l complaints, except as documented Psychiatric Psychiatric: Reports systems reviewed and no addt'l complaints, except as documented Endocrine Endocrinology: Reports systems reviewed and no addt'l complaints, except as documented Hematologic/Lymphatic Hematologic/Lymphatic: Reports systems reviewed and no addt'l complaints, except as documented Allergic/Immunologic Allergic/Immunologic: Reports systems reviewed and no addt'l complaints, except as documented Vital Signs Vital Signs Vital Signs: 02/25/23 09:18 Temperature 96.5 F L Temperature Source Temporal Pulse Rate 83 Respiratory Rate 16 Blood Pressure 99/59 L Blood Pressure Mean 72 Blood Pressure Source Monitor Blood Pressure Position Sitting Blood Pressure Location Left Arm Oxygen Delivery Method Room Air Weight Weight: 255 lb Body Mass Index (BMI) 31.0 Physical Exam Const oriented x3 General Appearance: cooperative Exam Limitations: no limitations HEENT normocephalic Head and Scalp: normal to inspection Eyes PERRL Neck full ROM Resp normal respiratory effort Effort and Inspection: able to speak in complete sentences Cardio regular rate and regular rhythm Extremity Negative for normal to inspection Extremity Narrative: Bilateral lower legs and feet are erythematous with open sores and swelling. Skin Skin Narrative: Open wounds bilateral lower legs erythematous with swelling in the feet and lower legs. Neuro oriented x3 Speech: speech normal Psych Appearance: grossly normal Speech: normal speech Thought Content: normal thought content Judgement: judgement good Debridement Note Debridement Note Wound debrided: Right circumferential peripheral vascular disease with ulcers Type of Debridement: Excisional debridement Anesthesia Used: 5% Lidocaine Gel Depth: Down to and including healthy tissue Percentage of wound debrided: 100 Instrument Used: 7mm curette Tissue Removed: Fibrin and devitalized tissue Severity: Limited To Skin Breakdown Amount of bleeding with debridement: Mild Bleeding Controlled with: Compression and gauze Patient tolerated procedure: Patient tolerated procedure well Post-Debridement Measurements and Additional Note: Post-Debridement Measurements/Treatment SUBHASH - Nurse 1 - General Ulcer Assessment Start: 02/25/23 09:16 Freq: Status: Active Protocol: JERMAIN Activity Type Activity Date Activity User E-sign Co-sign Detail Recorded Client Recorded Date Recorded By Document 02/25/23 09:18 [facility] [id number] 02/25/23 09:45 BMF 02/25/23 09:18 WC - Today's Visit Information Type of service Initial Visit Arrival Mode Ambulatory,Cane Transfer Assistance None Accompanied by Patient Identification Verified (Name & Yes ) Patient Requires Transmission-Based No Precautions Height and Weight Height 6 ft 4 in Weight 255 lb Weight in Pounds 255.0 lbs Weight Measurement Method Estimated by Patient Body Mass Index (BMI) 31.0 BMI Classification Obese BSA - Elsa 2.46 Vital Signs Temperature (97.8 F-99.1 F) 96.5 F L Temperature Source Temporal Pulse Rate (60-100) 83 Pulse Location Monitor Respiratory Rate (12-18) 16 Respiratory rate source Observation Oxygen Delivery Method Room Air Blood Pressure (90/60-120/80) 99/59 L Blood Pressure Mean 72 Source Monitor Position Sitting Blood Pressure Location Left Arm History Since Last Visit- (Skip if this is Patient's initial visit) Left Footwear Regular Shoe Right Footwear Regular Shoe Pain Scale: 0-10 Numeric Is Patient Pain Free? Yes Lower Extremity Assessment/ Foot Assessment/ Toe Nail Assessment Right -Posterior Tibial Palpable No -Posterior Tibial Doppler Monophasic -Dorsalis Pedis Palpable No -Dorsalis Pedis Doppler Monophasic -Extremity Color Dusky, Hyperpigmented, Hemosiderin -Hair Growth on Legs No -Hair Growth on Toes No -Temperature of Extremity Cool -Thick Yes -Discolored Yes -Deformed No -Improper Length & Hygeine No Left -Posterior Tibial Palpable No -Posterior Tibial Doppler Multiphasic -Dorsalis Pedis Palpable No -Dorsalis Pedis Doppler Monophasic -Extremity Color Dusky, Hyperpigmented, Hemosiderin -Hair Growth on Legs No -Hair Growth on Toes No -Temperature of Extremity Cool -Other Deformity No -Prior Foot Ulcer No -Charcot Joint No -Prior Amputation No -Thick Yes -Discolored Yes -Deformed No -Improper Length & Hygeine No Neuropathy Assessment Feet - Top Side and Bottom <Entered> (a) Communication Assessment Preferred language Chinese Electrical Prospecting Operator Required No Able to Read Yes Able to Write Yes Communication Tools None Right Hearing Abillity Normal Left Hearing Abillity Normal Visual Assistive Devices Glasses, Artificial Eye Teaching Assessment Preferences Verbal,Written, Audio/Visual, Demonstration Barriers to Learning None Readiness To Learn Excellent Willingness to Engage in Self Management High Activies Readiness to Engage in Self Management High Activities Anxiety Level Calm Cooperation Cooperative Perception Coherent Interest in Health Problem Asks Questions Education Importance Acknowledges Need Does Patient Smoke tobacco or other No substances Smoking Status Never smoker Is Patient Diabetic Yes Culture/[facility]ist/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 Cultural/[facility] Needs that may affect No Treatment Plan Teaching: Wound Center *Welcome to the Wound Center -Person Taught Patient, Significant Other -Teaching Method Discussion -Response to teaching Verbalize understanding Welcome to the Wound Care Center Chinese (a) 1 - NEGATIVE 2 - NEGATIVE 3 - + 4 - + 5 - + 6 - + WC - Nurse 1 - General Ulcer Measurement Start: 02/25/23 09:16 Freq: Status: Active Protocol: Activity Type Activity Date Activity User E-sign Co-sign Detail Recorded Client Recorded Date Recorded By Document 02/25/23 09:18 [facility] [id number] 02/25/23 09:45 [facility] 02/25/23 09:18 Wound Center Nurse 1 #5- R GR TOE -Combined with other wound No -Current Size (cm) - Length 0.4 -Current Size (cm) - Width 0.2 -Current Size (cm) - Depth 0.1 -Total Square Cm 0.08 -Date of Last Picture (Recall this 02/25/23 field) -Photo Taken Yes -Epithelialization None Present -Tunneling No -Undermining/Tunneling No -Circular Undermining No -Exudate Amt None Present -Wound Margin Distinct, Outline Attached -Granulation Amt None Present (0 %) -Slough/Fibrin Yes -Necrosis Amt Large (67-100%) -Necrotic Tissue Type Eschar -Texture (Tresa-wound Skin Appearance) Assessed, Scarring -Moisture (Tresa-wound Skin Appearance) Assessed -Color (Tresa-wound Skin Appearance) Assessed -Temperature (Tresa-wound Skin No Abnormality Appearance) (Pt Warm) -Tenderness on Palpation (Tresa-wound No Skin Appearance) -Ulcer Cleansing Soap and Water -Foul Odor after Cleansing No -Anesthetic Used 5% Lidocaine Gel #4 R 2ND TOE -Combined with other wound No -Current Size (cm) - Length 0.4 -Current Size (cm) - Width 0.3 -Current Size (cm) - Depth 0.1 -Total Square Cm 0.12 -Date of Last Picture (Recall this 02/25/23 field) -Photo Taken Yes -Epithelialization None Present -Tunneling No -Undermining/Tunneling No -Circular Undermining No -Exudate Amt None Present -Wound Margin Distinct, Outline Attached -Granulation Amt None Present (0 %) -Slough/Fibrin Yes -Necrosis Amt Large (67-100%) -Necrotic Tissue Type Eschar -Texture (Tresa-wound Skin Appearance) Assessed, Scarring -Moisture (Tresa-wound Skin Appearance) Assessed -Color (Tresa-wound Skin Appearance) Assessed -Temperature (Tresa-wound Skin No Abnormality Appearance) (Pt Warm) -Tenderness on Palpation (Tersa-wound No Skin Appearance) -Ulcer Cleansing Soap and Water -Foul Odor after Cleansing No -Anesthetic Used 5% Lidocaine Gel #3- L POST LE -Combined with other wound No -Current Size (cm) - Length 0.5 -Current Size (cm) - Width 0.5 -Current Size (cm) - Depth 0.1 -Total Square Cm 0.25 -Date of Last Picture (Recall this 02/25/23 field) -Photo Taken Yes -Epithelialization None Present -Tunneling No -Undermining/Tunneling No -Circular Undermining No -Exudate Amt Small -Exudate Type Serous -Wound Margin Flat & Intact -Granulation Amt Large (67-100%) -Granulation Quality Red -Slough/Fibrin No -Necrosis Amt None Present (0 %) -Texture (Tresa-wound Skin Appearance) Assessed, Scarring -Moisture (Tresa-wound Skin Appearance) Assessed -Color (Tresa-wound Skin Appearance) Assessed -Temperature (Tresa-wound Skin No Abnormality Appearance) (Pt Warm) -Tenderness on Palpation (Tresa-wound No Skin Appearance) -Ulcer Cleansing Soap and Water -Foul Odor after Cleansing No -Anesthetic Used 5% Lidocaine Gel #2- R LAT ZHONG CLUSTER -Combined with other wound No -Current Size (cm) - Length 3 -Current Size (cm) - Width 0.5 -Current Size (cm) - Depth 0.1 -Total Square Cm 1.5 -Date of Last Picture (Recall this 02/25/23 field) -Photo Taken Yes -Epithelialization None Present -Tunneling No -Undermining/Tunneling No -Circular Undermining No -Exudate Amt Small -Exudate Type Serous -Wound Margin Flat & Intact -Granulation Amt Medium (34-66%) -Granulation Quality Red -Slough/Fibrin Yes -Necrosis Amt Medium (34-66%) -Necrotic Tissue Type Adherent Slough -Texture (Tresa-wound Skin Appearance) Assessed, Scarring -Moisture (Tresa-wound Skin Appearance) Assessed -Color (Tresa-wound Skin Appearance) Assessed, Hemosiderin Staining -Temperature (Tresa-wound Skin No Abnormality Appearance) (Pt Warm) -Tenderness on Palpation (Tresa-wound No Skin Appearance) -Ulcer Cleansing Soap and Water -Foul Odor after Cleansing No -Anesthetic Used 5% Lidocaine Gel Lower Limb Edema Present Yes Right Calf (cm) 38.3 Right Ankle (cm) 23.7 Left Calf (cm) 37.2 Left Ankle (cm) 23 WC - Nurse 2 - General Ulcer CM Notes Start: 02/25/23 09:16 Freq: Status: Active Protocol: Activity Type Activity Date Activity User E-sign Co-sign Detail Recorded Client Recorded Date Recorded By Document 02/25/23 10:02 MW [id number] 02/25/23 10:10 MW 02/25/23 10:02 Wound Center Nurse 2 #5- R GR TOE -Time 10:03 #4 R 2ND TOE -Time 10:03 #3- L POST LE -Time 10:04 -Correct Patient Yes -Correct Side, Site, Position Yes -Correct Procedure Yes -Procedure Performed Yes -Type of Procedure Debridement -Clinical Debridement Subcutaneous -Tissue Removed Subcutaneous -Post Debridement (cm) - Length 0.5 -Post Debridement (cm) - Width 0.5 -Post Debridement (cm) - Depth 0.1 -Total Square (Post) (cm) 0.25 -Area of Debridement (cm) - Length 0.5 -Area of Debridement (cm) - Width 0.5 -Total Square (Area) (cm) 0.25 -Tunneling No -Undermining/Tunneling No -Circular Undermining No -Wound/Ulcer Outcome Not Healed -Ulcer Cleansing Rinsed/ Irrigated with Saline -Foul Odor after Cleansing No -Bioengineered Tissue No -Bleeding Controlled with Pressure -Treatment Response Procedure Tolerated Well -Offloading No -Debridement - Subq, 1st 20sq cm Yes #2- R LAT ZHONG CLUSTER -Time 10:04 -Correct Patient Yes -Correct Side, Site, Position Yes -Correct Procedure Yes -Procedure Performed Yes -Type of Procedure Debridement -Clinical Debridement Subcutaneous -Tissue Removed Subcutaneous -Post Debridement (cm) - Length 3.0 -Post Debridement (cm) - Width 0.5 -Post Debridement (cm) - Depth 0.1 -Total Square (Post) (cm) 1.50 -Area of Debridement (cm) - Length 3.0 -Area of Debridement (cm) - Width 0.5 -Total Square (Area) (cm) 1.50 -Tunneling No -Undermining/Tunneling No -Circular Undermining No -Wound/Ulcer Outcome Not Healed -Ulcer Cleansing Rinsed/ Irrigated with Saline -Foul Odor after Cleansing No -Bioengineered Tissue No -Bleeding Controlled with Pressure -Treatment Response Procedure Tolerated Well -Offloading No -Debridement - Subq, 1st 20sq cm No Pain Scale: 0-10 Numeric Is Patient Pain Free? Yes - Nurse 3 - General Ulcer D/C NN Start: 02/25/23 09:16 Freq: Status: Active Protocol: Activity Type Activity Date Activity User E-sign Co-sign Detail Recorded Client Recorded Date Recorded By Document 02/25/23 10:23 [facility] [id number] 02/25/23 10:23 [facility] 02/25/23 10:23 Wound Care Center Nurse 3 #3- L POST LE -Ulcer Cleansing Rinsed/ Irrigated with Saline -Foul Odor after Cleansing No -Primary Dressing Applied NonAdherent Contact Layer -Other Dressing XEROFORM -Primary Dressing Covered/Secured with Dry Gauze & Roll Gauze, Secured with Tape #2- R LAT ZHONG CLUSTER -Ulcer Cleansing Rinsed/ Irrigated with Saline -Foul Odor after Cleansing No -Primary Dressing Applied NonAdherent Contact Layer -Other Dressing XEROFORM -Primary Dressing Covered/Secured with Dry Gauze & Roll Gauze, Secured with Tape BLE -Tubular Bandage Double Layer -Size of Tubigrip Used Size D -Size D ($) 4 Treatment Response Procedure Tolerated Well Pain Scale: 0-10 Numeric Is Patient Pain Free? Yes - Visit Discharge Discharge Condition Stable Ambulatory Status Ambulatory,Cane Transportation Private Auto Accompanied by Facility Type Home Health Additional Wound Wound debrided: Left lower leg peripheral vascular disease with ulcers Type of Debridement: Excisional debridement Anesthesia Used: 5% Lidocaine Gel Depth: Down to and including healthy tissue Percentage of wound debrided: 100 Instrument Used: 7mm curette Tissue Removed: Devitalized tissue and fibrin Severity: Limited To Skin Breakdown Amount of bleeding with debridement: Mild Bleeding Controlled with: Compression and gauze Patient tolerated procedure: Patient tolerated procedure well Assessment/Plan Assessment/Plan (1) Acute CHF: CODE(S): I50.9 - Heart failure, unspecified (2) Leg edema: CODE(S): R60.0 - Localized edema (3) Bilateral lower leg cellulitis: CODE(S): L03.116 - Cellulitis of left lower limb; L03.115 - Cellulitis of right lower limb (4) Peripheral vascular disease of lower extremity with ulceration: CODE(S): I73.9 - Peripheral vascular disease, unspecified; L97.909 - Non-pressure chronic ulcer of unspecified part of unspecified lower leg with unspecified severity PLAN: Wash bilateral lower legs with antibacterial soap such as Dial pat dry. Apply Xeroform and Adaptic over top to the open areas on bilateral lower legs cover with gauze and Hermila and Tubigrip's bilateral lower legs Follow-up in 1 week
[2023-03-04 10:30] VITALS: BP 92/54; PULSE 91; RESP 16; TEMP 36; BMI 31.0
--- NOTE | 2023-03-04 11:47 | PCM.WC.PN ---
History of Present Illness Date of Service: 03/04/23 Chief Complaint: Edema, lymphedema, chronic venous insufficiency, postphlebitic syndrome with inflammation, varicose veins with inflammation?lower extremities, bilaterally History of Wound: This is a 75-year-old male who presents with bilateral lower leg edema and cellulitis. He was hospitalized and treated and he is here for follow-up. These changes have been present for many years, but have become more prevalent recently. The patient claims to sleep in a flat mattress each night. However, he spends long periods each day in a sitting position. He ambulates in a limited fashion, due to hip problems and balance issues. He requires a cane for ambulation. 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 The patient has a history of pulmonary embolus in ?2. His 1st episode occurred in 2009 following a left total hip replacement procedure. He again had an episode of pulmonary embolization in October 2014, and remains on Xarelto to the current time. It is anticipated that he will remain systemically anticoagulated for a long period of time, perhaps lifelong. He has been previously treated at this facility for similar problems in the past related to venous stasis ulceration. The patient is known to have a history of diabetes mellitus, diabetic neuropathy, hypertension, glaucoma, diabetic retinopathy, syncope, rheumatic fever, and hyperlipidemia. He also has a history of pulmonary embolism. Progress of Wound: Patient is healed today and will be discharged from the wound center Subjective Subjective and patient are pleased with outcomes Objective Data Objective Data Bilateral lower legs resolved patient will be discharged Vital Signs: Vital Signs Temp Pulse Resp BP O2 Del Method 96.8 F L 91 16 92/54 L Room Air 03/04/23 10:30 03/04/23 10:30 03/04/23 10:30 03/04/23 10:30 03/04/23 10:30 Oxygen Delivery Method Room Air Weight: 255 lb Body Mass Index (BMI) 31.0 Lab / Micro Data Attestation: I reviewed the patient's lab results. Physical Exam Const oriented x3 General Appearance: cooperative Exam Limitations: no limitations HEENT normocephalic Head and Scalp: normal to inspection Eyes PERRL Neck full ROM Resp normal respiratory effort Effort and Inspection: able to speak in complete sentences Cardio regular rate and regular rhythm Extremity Negative for normal to inspection Extremity Narrative: Bilateral lower legs and feet are erythematous with open sores and swelling. Skin Skin Narrative: Open wounds bilateral lower legs erythematous with swelling in the feet and lower legs. Neuro oriented x3 Speech: speech normal Psych Appearance: grossly normal Speech: normal speech Thought Content: normal thought content Judgement: judgement good Debridement Note Debridement Note No debridement was completed: No debridement was completed today Post-Debridement Measurements and Additional Note: Post-Debridement Measurements/Treatment - Nurse 1 - General Ulcer Assessment Start: 02/25/23 09:16 Freq: Status: Active Protocol: JERMAIN Activity Type Activity Date Activity User E-sign Co-sign Detail Recorded Client Recorded Date Recorded By Document 02/25/23 09:18 [facility] [id number] 02/25/23 09:45 [facility] Document 03/04/23 10:30 [facility] [id number] 03/04/23 10:36 [facility] 02/25/23 03/04/23 09:18 10:30 - Today's Visit Information Type of service Initial Visit Follow-up Visit (Physician/INSTRUMENT CALIBRATOR ) Arrival Mode Ambulatory,Cane Ambulatory,Cane Transfer Assistance None None Accompanied by Patient Identification Verified (Name & Yes Yes ) Patient Requires Transmission-Based No No Precautions Height and Weight Height 6 ft 4 in Weight 255 lb Weight in Pounds 255.0 lbs Weight Measurement Method Estimated by Patient Body Mass Index (BMI) 31.0 31.0 BMI Classification Obese Obese BSA - Elsa 2.46 Vital Signs Temperature (97.8 F-99.1 F) 96.5 F L 96.8 F L Temperature Source Temporal Temporal Pulse Rate (60-100) 83 91 Pulse Location Monitor Monitor Respiratory Rate (12-18) 16 16 Respiratory rate source Observation Observation Oxygen Delivery Method Room Air Room Air Blood Pressure (90/60-120/80) 99/59 L 92/54 L Blood Pressure Mean (mm Hg) 72 66 Source Monitor Monitor Position Sitting Sitting Blood Pressure Location Left Arm Right Arm History Since Last Visit- (Skip if this is Patient's initial visit) Have you changed medications since your Yes last visit? Any new allergies or adverse reactions No Had a fall/change in ADL's that may No increase risk of falls Signs or symptoms of abuse and/or No neglect since last visit Have you been in the hospital since your No last visit? Has dressing in place as prescribed Yes Has compression in place as prescribed Yes Has offloadiing in place as prescribed N/A Experienced any changes in pain level or No management Left Footwear Regular Shoe Regular Shoe Right Footwear Regular Shoe Regular Shoe Pain Scale: 0-10 Numeric Is Patient Pain Free? Yes Yes Lower Extremity Assessment/ Foot Assessment/ Toe Nail Assessment Right -Posterior Tibial Palpable No -Posterior Tibial Doppler Monophasic -Dorsalis Pedis Palpable No -Dorsalis Pedis Doppler Monophasic -Extremity Color Dusky, Hyperpigmented, Hemosiderin -Hair Growth on Legs No -Hair Growth on Toes No -Temperature of Extremity Cool -Thick Yes -Discolored Yes -Deformed No -Improper Length & Hygeine No Left -Posterior Tibial Palpable No -Posterior Tibial Doppler Multiphasic -Dorsalis Pedis Palpable No -Dorsalis Pedis Doppler Monophasic -Extremity Color Dusky, Hyperpigmented, Hemosiderin -Hair Growth on Legs No -Hair Growth on Toes No -Temperature of Extremity Cool -Other Deformity No -Prior Foot Ulcer No -Charcot Joint No -Prior Amputation No -Thick Yes -Discolored Yes -Deformed No -Improper Length & Hygeine No Neuropathy Assessment Feet - Top Side and Bottom <Entered> (a) Communication Assessment Preferred language Russian 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 No Able to Read Yes Able to Write Yes Communication Tools None Right Hearing Abillity Normal Left Hearing Abillity Normal Visual Assistive Devices Glasses, Artificial Eye Teaching Assessment Preferences Verbal,Written, Audio/Visual, Demonstration Barriers to Learning None Readiness To Learn Excellent Willingness to Engage in Self Management High Activies Readiness to Engage in Self Management High Activities Anxiety Level Calm Cooperation Cooperative Perception Coherent Interest in Health Problem Asks Questions Education Importance Acknowledges Need Does Patient Smoke tobacco or other No substances Smoking Status Never smoker Is Patient Diabetic Yes 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 Cultural/Taoism Needs that may affect No Treatment Plan Teaching: Wound Center *Welcome to the Wound Center -Person Taught Patient, Significant Other -Teaching Method Discussion -Response to teaching Verbalize understanding Welcome to the Wound Care Center Russian (a) 1 - NEGATIVE 2 - NEGATIVE 3 - + 4 - + 5 - + 6 - + WC - Nurse 1 - General Ulcer Measurement Start: 02/25/23 09:16 Freq: Status: Active Protocol: Activity Type Activity Date Activity User E-sign Co-sign Detail Recorded Client Recorded Date Recorded By Document 02/25/23 09:18 [facility] [id number] 02/25/23 09:45 [facility] Document 03/04/23 10:30 [facility] [id number] 03/04/23 10:36 [facility] 02/25/23 03/04/23 09:18 10:30 Wound Center Nurse 1 #5- R GR TOE -Combined with other wound No -Current Size (cm) - Length 0.4 -Current Size (cm) - Width 0.2 -Current Size (cm) - Depth 0.1 -Total Square Cm 0.08 -Date of Last Picture (Recall this 02/25/23 field) -Photo Taken Yes -Epithelialization None Present -Tunneling No -Undermining/Tunneling No -Circular Undermining No -Exudate Amt None Present -Wound Margin Distinct, Outline Attached -Granulation Amt None Present (0 %) -Slough/Fibrin Yes -Necrosis Amt Large (67-100%) -Necrotic Tissue Type Eschar -Texture (Tresa-wound Skin Appearance) Assessed, Scarring -Moisture (Tresa-wound Skin Appearance) Assessed -Color (Tresa-wound Skin Appearance) Assessed -Temperature (Tresa-wound Skin No Abnormality Appearance) (Pt Warm) -Tenderness on Palpation (Tresa-wound No Skin Appearance) -Ulcer Cleansing Soap and Water -Foul Odor after Cleansing No -Anesthetic Used 5% Lidocaine Gel #4 R 2ND TOE -Combined with other wound No -Current Size (cm) - Length 0.4 -Current Size (cm) - Width 0.3 -Current Size (cm) - Depth 0.1 -Total Square Cm 0.12 -Date of Last Picture (Recall this 02/25/23 field) -Photo Taken Yes -Epithelialization None Present -Tunneling No -Undermining/Tunneling No -Circular Undermining No -Exudate Amt None Present -Wound Margin Distinct, Outline Attached -Granulation Amt None Present (0 %) -Slough/Fibrin Yes -Necrosis Amt Large (67-100%) -Necrotic Tissue Type Eschar -Texture (Tresa-wound Skin Appearance) Assessed, Scarring -Moisture (Tresa-wound Skin Appearance) Assessed -Color (Tresa-wound Skin Appearance) Assessed -Temperature (Tresa-wound Skin No Abnormality Appearance) (Pt Warm) -Tenderness on Palpation (Tresa-wound No Skin Appearance) -Ulcer Cleansing Soap and Water -Foul Odor after Cleansing No -Anesthetic Used 5% Lidocaine Gel #3- L POST LE -Combined with other wound No No -Current Size (cm) - Length 0.5 0.1 -Current Size (cm) - Width 0.5 0.1 -Current Size (cm) - Depth 0.1 0.1 -Total Square Cm 0.25 0.01 -Date of Last Picture (Recall this 02/25/23 03/04/23 field) -Photo Taken Yes Yes -Epithelialization None Present Large 67-100% -Tunneling No No -Undermining/Tunneling No No -Circular Undermining No No -Exudate Amt Small -Exudate Type Serous -Wound Margin Flat & Intact -Granulation Amt Large (67-100%) -Granulation Quality Red -Slough/Fibrin No -Necrosis Amt None Present (0 %) -Texture (Tresa-wound Skin Appearance) Assessed, Assessed, Scarring Scarring -Moisture (Tresa-wound Skin Appearance) Assessed Assessed -Color (Tresa-wound Skin Appearance) Assessed Assessed -Temperature (Tresa-wound Skin No Abnormality No Abnormality Appearance) (Pt Warm) (Pt Warm) -Tenderness on Palpation (Tresa-wound No No Skin Appearance) -Ulcer Cleansing Soap and Water -Foul Odor after Cleansing No -Anesthetic Used 5% Lidocaine Gel #2- R LAT ZHONG CLUSTER -Combined with other wound No No -Current Size (cm) - Length 3 0.1 -Current Size (cm) - Width 0.5 0.1 -Current Size (cm) - Depth 0.1 0.1 -Total Square Cm 1.5 0.01 -Date of Last Picture (Recall this 02/25/23 03/04/23 field) -Photo Taken Yes Yes -Epithelialization None Present Large 67-100% -Tunneling No -Undermining/Tunneling No -Circular Undermining No -Exudate Amt Small -Exudate Type Serous -Wound Margin Flat & Intact -Granulation Amt Medium (34-66%) -Granulation Quality Red -Slough/Fibrin Yes -Necrosis Amt Medium (34-66%) -Necrotic Tissue Type Adherent Slough -Texture (Tresa-wound Skin Appearance) Assessed, Assessed Scarring -Moisture (Tresa-wound Skin Appearance) Assessed Assessed -Color (Tresa-wound Skin Appearance) Assessed, Assessed Hemosiderin Staining -Temperature (Tresa-wound Skin No Abnormality No Abnormality Appearance) (Pt Warm) (Pt Warm) -Tenderness on Palpation (Tresa-wound No No Skin Appearance) -Ulcer Cleansing Soap and Water -Foul Odor after Cleansing No -Anesthetic Used 5% Lidocaine Gel Lower Limb Edema Present Yes Right Calf (cm) 38.3 39.6 Right Ankle (cm) 23.7 24.2 Left Calf (cm) 37.2 37.7 Left Ankle (cm) 23 24.3 WC - Nurse 2 - General Ulcer CM Notes Start: 02/25/23 09:16 Freq: Status: Active Protocol: Activity Type Activity Date Activity User E-sign Co-sign Detail Recorded Client Recorded Date Recorded By Document 02/25/23 10:02 [facility] [id number] 02/25/23 10:10 [facility] Document 03/04/23 10:56 [facility] [id number] 03/04/23 10:59 MW 02/25/23 03/04/23 10:02 10:56 Wound Center Nurse 2 #5- R GR TOE -Time 10:03 #4 R 2ND TOE -Time 10:03 #3- L POST LE -Time 10:04 10:57 -Correct Patient Yes Yes -Correct Side, Site, Position Yes Yes -Correct Procedure Yes Yes -Procedure Performed Yes No -Type of Procedure Debridement -Clinical Debridement Subcutaneous -Tissue Removed Subcutaneous -Post Debridement (cm) - Length 0.5 0 -Post Debridement (cm) - Width 0.5 0 -Post Debridement (cm) - Depth 0.1 0 -Total Square (Post) (cm) 0.25 0 -Area of Debridement (cm) - Length 0.5 -Area of Debridement (cm) - Width 0.5 -Total Square (Area) (cm) 0.25 -Tunneling No -Undermining/Tunneling No -Circular Undermining No -Wound/Ulcer Outcome Not Healed Healed- Epithelialized -Ulcer Cleansing Rinsed/ Irrigated with Saline -Foul Odor after Cleansing No -Bioengineered Tissue No -Bleeding Controlled with Pressure -Treatment Response Procedure Tolerated Well -Offloading No -Debridement - Subq, 1st 20sq cm Yes #2- R LAT ZHONG CLUSTER -Time 10:04 10:58 -Correct Patient Yes Yes -Correct Side, Site, Position Yes Yes -Correct Procedure Yes Yes -Procedure Performed Yes No -Type of Procedure Debridement -Clinical Debridement Subcutaneous -Tissue Removed Subcutaneous -Post Debridement (cm) - Length 3.0 0 -Post Debridement (cm) - Width 0.5 0 -Post Debridement (cm) - Depth 0.1 0 -Total Square (Post) (cm) 1.50 0 -Area of Debridement (cm) - Length 3.0 -Area of Debridement (cm) - Width 0.5 -Total Square (Area) (cm) 1.50 -Tunneling No -Undermining/Tunneling No -Circular Undermining No -Wound/Ulcer Outcome Not Healed Healed- Epithelialized -Ulcer Cleansing Rinsed/ Irrigated with Saline -Foul Odor after Cleansing No -Bioengineered Tissue No -Bleeding Controlled with Pressure -Treatment Response Procedure Tolerated Well -Offloading No -Debridement - Subq, 1st 20sq cm No Pain Scale: 0-10 Numeric Is Patient Pain Free? Yes Yes - Nurse 3 - General Ulcer D/C NN Start: 02/25/23 09:16 Freq: Status: Active Protocol: Activity Type Activity Date Activity User E-sign Co-sign Detail Recorded Client Recorded Date Recorded By Document 02/25/23 10:23 [facility] [id number] 02/25/23 10:23 [facility] Document 03/04/23 11:07 [facility] [id number] 03/04/23 11:08 [facility] 02/25/23 03/04/23 10:23 11:07 Wound Care Center Nurse 3 #3- L POST LE -Ulcer Cleansing Rinsed/ Irrigated with Saline -Foul Odor after Cleansing No -Primary Dressing Applied NonAdherent Contact Layer -Other Dressing XEROFORM -Primary Dressing Covered/Secured with Dry Gauze & Roll Gauze, Secured with Tape #2- R LAT ZHONG CLUSTER -Ulcer Cleansing Rinsed/ Irrigated with Saline -Foul Odor after Cleansing No -Primary Dressing Applied NonAdherent Contact Layer -Other Dressing XEROFORM -Primary Dressing Covered/Secured with Dry Gauze & Roll Gauze, Secured with Tape BLE -Tubular Bandage Double Layer Double Layer -Size of Tubigrip Used Size D Size D -Size D ($) 4 2 Treatment Response Procedure Procedure Tolerated Well Tolerated Well Pain Scale: 0-10 Numeric Is Patient Pain Free? Yes Yes - Visit Discharge Discharge Condition Stable Stable Ambulatory Status Ambulatory,Cane Ambulatory,Cane Transportation Private Auto Private Auto Accompanied by Facility Type Home Health Home Health Assessment/Plan Assessment/Plan (1) Acute CHF: CODE(S): I50.9 - Heart failure, unspecified (2) Leg edema: CODE(S): R60.0 - Localized edema (3) Bilateral lower leg cellulitis: CODE(S): L03.116 - Cellulitis of left lower limb; L03.115 - Cellulitis of right lower limb (4) Peripheral vascular disease of lower extremity with ulceration: CODE(S): I73.9 - Peripheral vascular disease, unspecified; L97.909 - Non-pressure chronic ulcer of unspecified part of unspecified lower leg with unspecified severity PLAN: Discharge from the wound center follow-up as needed
== END 2023-03-04 15:04 | disposition home or self-care (01) ==
LOC: WC 10:15
PROVIDERS: PCP Internal Medicine; Referring Provider Internal Medicine; Visit Provider Nurse Practitioner
DX: I83.028 Varicose veins of left lower extremity with ulcer other part of lower leg (principal); L97.821 Non-pressure chronic ulcer of other part of left lower leg limited to breakdown of skin; I50.9 Heart failure, unspecified; E11.42 Type 2 diabetes mellitus with diabetic polyneuropathy; I73.9 Peripheral vascular disease, unspecified; L03.116 Cellulitis of left lower limb; L03.115 Cellulitis of right lower limb; I87.2 Venous insufficiency (chronic) (peripheral)
CPT/HCPCS: 11042; 99203; 99213; G0463

== ENCOUNTER 2023-03-11 11:52 | Emergency (ER) | payer MEDICARE, SELFPAY ==
[2023-03-11] VITALS (17 sets, daily range): BP systolic 97–126; BP diastolic 58–93; PULSE 71–87; RESP 0–36; TEMP 35.3; O2SAT 95–99; BMI 30.4
[2023-03-11 12:15] LABS: Bedside Glucose 116 mg/dL (74-106)
--- NOTE | 2023-03-11 12:36 | EKG12_ITS ---
Test Reason : Blood Pressure : / mmHG Vent. Rate : 073 BPM Atrial Rate : 312 BPM P-R Int : 000 ms QRS Dur : 112 ms QT Int : 424 ms P-R-T Axes : 000 -34 055 degrees QTc Int : 467 ms Atrial fibrillation with premature ventricular or aberrantly conducted complexes Left axis deviation Abnormal ECG Confirmed by ALICE KASPER, MARCO ([id number]), assistant film editor RHONDA MORALES ([id number]) on 03/13/2023 9:31:41 AM Referred By: ROSEMARY Confirmed By:MARCO JENKINS MD
--- NOTE | 2023-03-11 12:37 | EX.ED.DYSGE1 ---
HPI History of Present Illness Chief Complaint: Weakness Informant: patient and spouse/S.O. Onset/Context/Timing Onset: Today Context: Sudden Onset Current Severity: Gone Maximum Severity: Mild Narrative Narrative: 83-year-old male extensive past medical history including A-fib, hypertension, DVT, diabetes, chronic kidney disease, CHF on Eliquis for his A-fib. Patient states and that he was getting a lung CAT scan at the [facility] today when he had an event. I think he went out. He denies any complaints. On his way here by squad he an episode of nausea and vomiting. He said that is resolved his nausea is resolved. He denies any headache, chest pain, shortness of breath or abdominal pain. He denies any recent illness. No melena or abdominal pain. He denies any dysuria. Prior similar symptoms: Yes Recent Illness/Hospitalization: Yes PFSH [facility] Medical History Anxiety Asthma Bilateral lower leg cellulitis BPH (benign prostatic hyperplasia) Cardiac LV ejection fraction 30-35% Chest pain Chronic a-fib Depression Essential hypertension GI bleed History of COVID-19 (~08/2022) History of diabetes mellitus History of DVT (deep vein thrombosis) History of pulmonary embolus (PE) Hyperlipidemia Kidney stones Leg edema Lymphedema Migraines Non-smoker Obesity Osteoporosis Pancreatitis Pulmonary fibrosis (02/15/23) Rheumatic fever Stage 3b chronic kidney disease (CKD) Type 2 diabetes mellitus without complications Home Medications finasteride 5 mg tablet 5 mg PO QHS PROSTATE 10/17/14 [History Last Taken 02/03/23] simvastatin 10 mg tablet 10 mg PO QHS CHOLESTEROL 10/17/14 [History Last Taken 02/03/23] tamsulosin 0.4 mg capsule 0.4 mg PO QHS PROSTATE 10/17/14 [History Last Taken 02/03/23] saxagliptin 5 mg tablet 5 mg PO BREAKFAST DIABETES 07/23/19 [History Last Taken 02/04/23] metformin 500 mg tablet 500 mg PO BID DIABETES 02/04/23 [History Last Taken 02/04/23] metoprolol succinate 25 mg tablet,extended release 24 hr 25 mg PO BID 30 days #120 tabs 02/18/23 [Rx Last Taken Unknown] furosemide 40 mg tablet 20 mg PO DAILY FLUID #120 tabs 03/03/23 [Rx Last Taken Unknown] apixaban 5 mg tablet (Eliquis) 5 mg PO BID #60 tabs 03/09/23 [Rx Last Taken Unknown] sertraline 50 mg tablet 50 mg PO DAILY 30 days #30 tabs 03/09/23 [Rx Last Taken Unknown] Allergy/AdvReac Type Severity Reaction Status Date / Time poliomyelitis vaccine, live AdvReac Other Verified 03/11/23 11:53 oral poliomyelitis vaccine,killed AdvReac Other Verified 03/11/23 11:53 Family History Father Heart disease Surgical History H/O total hip arthroplasty History of removal of eye Social History Smoking Status: Never smoker alcohol intake: current alcohol intake frequency: holidays/special occasions only Alcohol type: wine substance use type: does not use caffeine: Yes Type: coffee Number of servings: 3 ROS ROS ED ROS Narrative Denies recent illness. Nausea and vomiting x1 today. Review of Systems ROS Unobtainable: Denies due to encephalopathy Constitutional Constitutional ED: Denies chills or fever(s) Eyes Eyes: Denies blurry vision ENT ENT ED: Denies ear pain Cardiovascular Cardiovascular: Denies chest pain Respiratory/Chest Respiratory/Chest: Denies cough Gastrointestinal Gastrointestinal: Reports nausea and vomiting; Denies abdominal pain, constipation, diarrhea or melena Genitourinary Genitourinary ED: Denies dysuria or hematuria Musculoskeletal Musculoskeletal: Denies arthralgias Integumentary Denies abscess Neurologic Neurologic: Denies headache(s) Psychiatric Psychiatric: Denies anxiety Endocrine Endocrinology: Denies cold intolerance Hematologic/Lymphatic Hematologic/Lymphatic: Reports none Allergic/Immunologic Allergic/Immunologic ED: Denies mouth swelling or tongue swelling EXAM Physical Exam Narrative Exam Narrative: 83-year-old male no acute distress. Vital signs stable afebrile. Pulse ox 97% on room air no signs hypoxia. H EENT exam left eye fever, advised motions are intact. 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 Moist mucous membranes. No facial droop or trauma. Neck nontender. Lungs are clear. Heart regular rate about 85 no murmur. Chest wall nontender. Abdomen soft nontender. Nondistended normal bowel sounds no peritoneal signs. Moving all 4 extremities. Nontender no edema. Neurologically is awake and alert. Answering questions following commands. He knows where he is and he knows the month. Const Vital Signs: 03/11/23 11:53 03/11/23 11:59 03/11/23 12:36 Temperature 95.5 F L Temperature Source Temporal Pulse Rate 87 Respiratory Rate 22 H Respiratory Effort Normal Short of Breath Respiratory Pattern Tachypnea Blood Pressure 122/93 H Blood Pressure Mean 102 Pulse Ox 97 Oxygen Delivery Method Room Air Room Air Positive well nourished and well developed; Negative for obese, cachectic, contractures or unkempt General Appearance ED: well developed, NAD and pallor; Negative for unkempt, cachectic, contractures, cyanotic or diaphoretic Nutritional Appearance: Negative for cachectic or obese HEENT Reports moist mucous membranes; Denies dry mucous membranes Negative for trauma or tenderness Mouth ED: No dry mucous membranes Mouth: No dry mucous membranes Eyes PERRL and EOMs intact bilaterally General Eye ED: Negative for pale conjunctiva Neck no lymphadenopathy, supple and no JVD General: Negative for tenderness Lymph Lymphatic: Negative for other Chest Wall inspection of chest normal and palpation of chest normal Chest: Negative for other Resp normal respiratory effort and clear to auscultation bilaterally Effort and Inspection: Negative for retractions Auscultation: Negative for rales, rhonchi or wheezes Cardio regular rate, regular rhythm, S1 normal heart sound, S2 normal heart sound and no murmurs Rate: Negative for bradycardia or tachycardic GI normal to inspection, nondistended, normoactive bowel sounds, non-tender, non-distended and no masses Inspection: Negative for abdominal distention Auscultation: normoactive bowel sounds Palpation: soft; Negative for tender or guarding Back/Spine no CVA tenderness General Back: Negative for CVA tenderness Cervical Spine: Negative for cervical spine tenderness Thoracic Spine / Upper Back: Negative for thoracic spinal tenderness Lumbar Spine / Lower Back: Negative for lumbar spinal tenderness Extremity normal to inspection General Extremety ED: Negative for edema or tenderness General Extremity: Negative for edema Neuro oriented x3 and CN's II-XII intact bilaterally Sensorium / Orientation: alert and orientation impaired; Negative for lethargic or stuporous Motor Exam: strength 5/5 throughout Psych mental status grossly normal Appearance: Negative for unkempt Attitude: No agitated Mood & Affect: Negative for depressed, anxious or tearful Skin no rashes or lesions noted and no wounds General Skin Exam: elasticity normal and pallor; Negative for jaundice Lesions: No lesion noted Rashes: No rashes noted Trauma: Negative for abrasion Wounds: Negative for wounds noted MDM MDM MDM Narrative Medical decision making narrative: 83-year-old male extensive past medical history with some type of event that happened while he was in a CAT scan at the [facility] today. He then had an episode of nausea and vomiting. He is feeling better now. He denies any headache, chest pain, abdominal pain. He has a benign exam. Screening labs will be obtained I will try to find more history. was there but was not in the CAT scan when this episode happened or the ambulance. Patient doing well on repeat exam at 1:58 PM. Nurses ambulated him and he did well. His labs not specifically changed from prior. He has chronic A-fib. His exam is benign. I do not know what caused him to have the nausea and vomiting after the CAT scan but he is comfortable being discharged home as his . History & Record Review Discussion w/independent historian: EMS personnel, Patient and Family Lab Data Attestation: I reviewed the patient's lab results. Lab results narrative: CBC normal white count 9.5. H&H of 14 and 45. Platelets are slightly low at 136. Electrolytes unremarkable gap of 8 BUN and creatinine are 33 and 1.58 has a history of chronic kidney disease. Glucose 119. Troponin normal at 16. Chest x-ray chronic changes no acute. EKG shows chronic A-fib. Labs: Laboratory Results - last 24 hr 03/11/23 03/11/23 03/11/23 11:56 12:01 12:01 WBC 9.5 RBC 5.01 Hgb 14.8 Hct 45.8 MCV 91.4 MCH 29.5 MCHC 32.3 RDW Std Deviation 45.1 H RDW Coeff of Sasha 13.3 Plt Count 136 L MPV 12.1 H Immature Gran % (Auto) 0.300 Neut % (Auto) 48.0 Lymph % (Auto) 38.9 [place] % (Auto) 8.8 Eos % (Auto) 3.5 Baso % (Auto) 0.5 Absolute Neuts (auto) 4.6 Absolute Lymphs (auto) 3.71 Nucleated RBC % 0 Sodium 140 Potassium 3.6 Chloride 103 Carbon Dioxide 29.0 Anion Gap 8 BUN 33 H Creatinine 1.58 H Estim Creat Clear Calc 44.25 Est GFR (MDRD) Af Amer 54 L Est GFR (MDRD) Non-Af 45 L BUN/Creatinine Ratio 20.9 H Glucose 119 H Calcium 9.3 Troponin I High Sens 16 POC Glucose 116 H Radiography Chest X-Ray - ED: 1 View, Read by ED Physician, Read by Radiologist, Heart, Lungs, Mediastinum, Bony Structures, No Acute Disease and Chronic Changes Diagnostic Testing: Clinical Impression(s) from Imaging Studies Chest X-Ray 03/11/23 12:38 IMPRESSION: Stable appearance of the increased markings at the lung bases in keeping with a chronic interstitial fibrosis. Electronically Signed: Nirav Dxion MD at 12:55 EDT , Chest x-ray, portable, single view interpreted by myself and the radiologist shows no acute abnormalities. Chronic changes. Normal cardiac silhouette. Normal mediastinum. Rhythm Strip Rhythm Strip: A-fib Rate: 73 Ectopy: None EKG Initial EKG: Attestation: I personally reviewed and interpreted this EKG as follows: Interpretation: Atrial Fibrillation Comments: Atrial fibrillation rate of 73 no acute signs of DE or ischemia. Occasional PVCs. Discharge Plan Triage Chief Complaint: Weakness ED Provider: Jeremy Aburto Dx/Rx/DC Orders Clinical Impression: Nausea & vomiting, Chronic a-fib, History of diabetes mellitus, History of chronic kidney disease Instructions: ED Vomiting (Adult) Prescriptions: No Action metoprolol succinate 25 mg tablet extended release 24 hr 25 mg PO BID 30 Days Qty: 120 3RF simvastatin 10 MG tablet 10 mg PO QHS tamsulosin 0.4 MG capsule 0.4 mg PO QHS finasteride 5 MG tablet 5 mg PO QHS saxagliptin 5 mg tablet 5 mg PO BREAKFAST metformin 500 mg tablet 500 mg PO BID furosemide 40 mg tablet 20 mg PO DAILY Qty: 120 2RF Eliquis 5 mg tablet 5 mg PO BID Qty: 60 12RF sertraline 50 mg tablet 50 mg PO DAILY 30 Days Qty: 30 0RF Primary Care Provider: Martha Orr Referrals: Martha Orr, [Primary Care Provider] - 3-5 Days if not improving Activity Restrictions/Additional Instructions: Follow-up with your doctor as needed. Your EKG, chest x-ray and labs today did not show anything new or specifically abnormal. Return if feeling worse. Disposition Disposition: Home, Self Care
--- NOTE | 2023-03-11 12:38 | RAD_ITS ---
STUDY: X-RAY CHEST REASON FOR EXAM: Male, 83 years old. Chest pain TECHNIQUE: Single AP portable view of the chest. COMPARISON: Comparison is made with prior study February 11, 2023. FINDINGS: EKG electrodes are seen. Hyperinflation. Stable increased interstitial markings with areas of confluence in both lower lobes in keeping with chronic interstitial fibrosis. There is been essentially no change. Normal size heart. Normal mediastinum and daniel. Normal visualized pulmonary arteries. There is atherosclerotic calcification of the aortic arch with tortuosity. There are diffuse degenerative changes of the visualized thoracic spine. There is degenerative osteoarthritis of the bilateral shoulders. There is no demonstrated abnormality of the visualized soft tissue structures of the upper abdomen. RAD/Chest 1 View (Portable) IMPRESSION: Stable appearance of the increased markings at the lung bases in keeping with a chronic interstitial fibrosis. Electronically Signed: Nirav Dixon MD at 12:55 EDT ,
[2023-03-11 12:54] LABS: Absolute Lymphocyte Count 3.71 X10^3/uL (0.83-4.51); Absolute Neutrophil Count 4.6 X10^3/uL (2.0-7.7); Basophil# 0.05 X10^3/uL; Basophil% 0.5 % (0-1); Eosinophil# 0.33 X10^3/uL; Eosinophils% 3.5 % (0-5); Hematocrit 45.8 % (40-54); Hemoglobin 14.8 g/dL (13.0-16.5); Lymphocyte # 3.71 X10^3/ul (0.83-4.51); Lymphocyte % 38.9 % (19-41); Mean Corp Hgb Conc 32.3 g/dL (32-36); Mean Corpuscular Hgb 29.5 pg (27.0-32.0); Mean Corpuscular Volume 91.4 fL (80-94); Mean Platelet Vol. 12.1 fl (6.2-12.0); Monocyte# 0.84 X10^3/uL; Monocyte% 8.8 % (0-10); NRBC Flagged by Analyzer 0 % (0-5); Neutrophil # 4.58 X10^3/uL (2.7-7.7); Platelet Count 136 K/mm3 (150-450); RBC Distribution Width CV 13.3 % (11.6-14.6); RBC Distribution Width SD 45.1 fl (35.1-43.9); Red Blood Count 5.01 M/mm3 (4.6-6.2); White Blood Count 9.5 K/mm3 (4.4-11.0)
[2023-03-11 13:13] LABS: Anion Gap 8 (5-15); BUN 33 mg/dL (7-18); BUN/Creat Ratio 20.9 RATIO (10-20); Calcium,Total 9.3 mg/dL (8.5-10.1); Chloride 103 mmol/L (98-107); Creatinine, Serum 1.58 mg/dL (0.70-1.30); EST Glomerular Filtration Rate 45 mL/min (>60); Est Glom Filt Rate - Afr Amer 54 mL/min (>60); Estimated Creatinine Clearance 44.25 ml/min; Glucose 119 mg/dL (74-106); Potassium 3.6 mmol/L (3.5-5.1); Sodium Level 140 mmol/L (136-145); Troponin-I HS 16 pg/mL (3.0-78.0)
== END 2023-03-11 14:28 | disposition home or self-care (01) ==
PROVIDERS: Emergency Provider Emergency Medicine; PCP Internal Medicine; Visit Provider Emergency Medicine
DX: R11.2 Nausea with vomiting, unspecified (principal); I50.9 Heart failure, unspecified; I13.0 Hypertensive heart and chronic kidney disease with heart failure and stage 1 through stage 4 chronic kidney disease, or unspecified chronic kidney disease; E11.22 Type 2 diabetes mellitus with diabetic chronic kidney disease; I48.20 Chronic atrial fibrillation, unspecified; N18.32 Chronic kidney disease, stage 3b; E78.5 Hyperlipidemia, unspecified; Z79.01 Long term (current) use of anticoagulants; Z79.84 Long term (current) use of oral hypoglycemic drugs; Z79.899 Other long term (current) drug therapy; Z86.16 Personal history of COVID-19
CPT/HCPCS: 71045; 80048; 82962; 84484; 85025; 93005; 99285; A4216

== ENCOUNTER → 2024-11-07 | Outpatient (CLI) | payer MEDICARE, SELFPAY ==
--- NOTE | 2024-11-07 10:55 | ART_ITS ---
Reason For Study: PVD Procedure A bilateral lower extremity continuous wave Doppler with analog waveform analysis,segmental pressures,and ankle brachial indexes without exercise. Left Segmental Pressures Left brachial= 107mmHg. Left posterior tibial artery = 144mmHg. Left dorsalis pedis artery = 125mmHg. Left digit = 84 mmHg. The left dorsalis pedis waveforms are triphasic. The left posterior tibial artery waveforms are triphasic. Right Segmental Pressures Right brachial= 98mmHg. Right posterior tibial artery = 153mmHg. Right dorsalis pedis artery = 143mmHg. Right digit = 92 mmHg. The right dorsalis pedis waveforms are triphasic. The right posterior tibial artery waveforms are triphasic. Indices The right ankle brachial index by the dorsalis pedis is 1.34. The right ankle brachial index by the posterior tibial artery is 1.43. The right digital-brachial index is 0.86. The left ankle brachial index by the dorsalis pedis is 1.17. The left ankle brachial index by the posterior tibial artery is 1.35. The left digital-brachial index is 0.79. VL/Lower Ext Art Exam w/o Exercis Interpretation Summary Right LISA 1.43, normal. TBI and Doppler/PVR waveforms of the right leg normal a t rest. Left LISA 1.35, normal. TBI and Doppler/PVR waveforms of the left leg normal at rest. Digit waveforms diminished, pedal/digit disease vs spasm Ordering Physician: Felicitas Gambino Referring Physician: FELICITAS GAMBINO MD Performed By: Alisha Sena RVT, RDCS and Student
== END | disposition home or self-care (01) ==
LOC: CVS 10:54
PROVIDERS: PCP Internal Medicine; Referring Provider Internal Medicine; Visit Provider Internal Medicine
DX: I73.9 Peripheral vascular disease, unspecified (principal)
CPT/HCPCS: 93923

== ENCOUNTER 2025-03-02 02:17 | Emergency (ER) | payer MEDICARE, SELFPAY ==
[2025-03-02] VITALS (18 sets, daily range): BP systolic 103–121; BP diastolic 58–93; PULSE 53–80; RESP 0–24; TEMP 36.4–36.5; O2SAT 96–100; BMI 29.9
--- NOTE | 2025-03-02 02:45 | EKG12_ITS ---
Test Reason : PALPS Blood Pressure : */* mmHG Vent. Rate : 68 BPM Atrial Rate : * BPM P-R Int : * ms QRS Dur : 112 ms QT Int : 424 ms P-R-T Axes : * -51 45 degrees QTcB Int : 450 ms Atrial fibrillation Left axis deviation Inferior infarct , age undetermined Abnormal ECG Confirmed by Regis Mclaughlin ([id number]), movie editor RYAN HARDWICK ([id number]) on 03/03/2025 12:17:48 PM Referred By: Confirmed By: Regis Mclaughlin
--- NOTE | 2025-03-02 02:46 | ED.VIS.DYS ---
HPI History of Present Illness Chief Complaint: Shortness of Breath Informant: patient and spouse/S.O. Narrative Narrative: 85-year-old male living at home with his short of breath for the past 2 days, worse tonight but not necessarily with lying down, to the point where he felt like he could not get any air he was having chest heaviness in his upper chest into his neck, he did a breathing treatment which seemed to help. He thinks maybe it was mucus but he is not sure. He has been coughing but it has not been productive. Feeling better now. No fevers or chills. They are relatively poor historians when it comes to specifics of his medical history. [facility] Medical History Amyloidosis Rheumatic fever Bilateral lower leg cellulitis Leg edema Pulmonary fibrosis (02/15/23) History of DVT (deep vein thrombosis) History of COVID-19 (~08/2022) History of pulmonary embolus (PE) Essential hypertension Stage 3b chronic kidney disease (CKD) Cardiac LV ejection fraction 30-35% Depression Anxiety Osteoporosis Kidney stones Pancreatitis GI bleed Non-smoker Asthma Chest pain Migraines Chronic a-fib History of diabetes mellitus Obesity Hyperlipidemia Lymphedema Type 2 diabetes mellitus without complications BPH (benign prostatic hyperplasia) Home Medications ?Medication ?Instructions ?Recorded ?Last Taken ?Type finasteride 5 mg tablet 5 mg PO QHS PROSTATE 10/17/14 02/03/23 History simvastatin 10 mg tablet 10 mg PO QHS CHOLESTEROL 10/17/14 02/03/23 History tamsulosin 0.4 mg capsule 0.4 mg PO QHS PROSTATE 10/17/14 02/03/23 History metoprolol succinate 25 mg 25 mg PO BID 30 days #120 tabs 02/18/23 Unknown Rx tablet,extended release 24 hr apixaban 5 mg tablet (Eliquis) 2.5 mg PO BID 03/02/25 Unknown History donepezil 5 mg tablet 5 mg PO DAILY 03/02/25 Unknown History doxycycline monohydrate 100 mg 100 mg PO BID #14 CAPSULES 03/02/25 Unknown Rx capsule empagliflozin 10 mg tablet 10 mg PO DAILY 03/02/25 Unknown History (Jardiance) furosemide 40 mg tablet 20 mg PO Q12H FLUID 03/02/25 Unknown History prednisone 20 mg tablet 40 mg (2 x 20 mg) PO DAILY 4 days 03/02/25 Unknown Rx #8 tabs sitagliptin phosphate 50 mg tablet 50 mg PO DAILY 03/02/25 Unknown History (Januvia) tafamidis meglumine 20 mg capsule 80 mg PO DAILY 03/02/25 Unknown History (Vyndaqel) Allergy/AdvReac Type Severity Reaction Status Date / Time poliomyelitis vaccine, live AdvReac Other Verified 03/02/25 02:18 oral poliomyelitis vaccine,killed AdvReac Other Verified 03/02/25 02:18 Family History (Updated 03/30/23 @ 07:16 by Yolette Wilcox) Father Heart disease Brother Diabetes Sister Diabetes Mother Glaucoma Surgical History (Updated 03/02/25 @ 02:24 by Lucretia Rodriguez) History of removal of eye H/O total hip arthroplasty Social History Smoking Status: Never smoker alcohol intake: current alcohol intake frequency: holidays/special occasions only Alcohol type: wine substance use type: does not use caffeine: Yes Type: coffee Number of servings: 3 ROS ROS ED Constitutional Constitutional ED: Denies chills or fever(s) Eyes Eyes: Denies change in vision or diplopia ENT ENT ED: Denies rhinorrhea or sore throat Cardiovascular Cardiovascular: Reports chest pain; Denies orthopnea, palpitations or racing heartbeat Respiratory/Chest Respiratory/Chest: Reports cough and dyspnea; Denies orthopnea or sputum Gastrointestinal Gastrointestinal: Denies abdominal pain, diarrhea, nausea or vomiting Genitourinary Genitourinary ED: Denies dysuria or hematuria Musculoskeletal Musculoskeletal: Denies back pain or neck pain Integumentary Denies abscess or rash Neurologic Neurologic: Denies headache(s), paresthesias or weakness Psychiatric Psychiatric: Denies suicidal thoughts EXAM Physical Exam Const Vital Signs: 03/02/25 02:18 03/02/25 02:22 03/02/25 02:24 Temperature 97.7 F L 97.5 F L Temperature Source Oral Oral Pulse Rate 73 71 Respiratory Rate 21 H 22 H Respiratory Effort Normal Non-Labored Respiratory Depth Normal Respiratory Pattern Normal Blood Pressure 121/80 H 121/80 H Blood Pressure Mean 93 93 Pulse Ox 100 99 Oxygen Delivery Method Room Air Room Air Room Air 03/02/25 02:34 03/02/25 02:45 03/02/25 02:45 Temperature Temperature Source Pulse Rate 65 60 Respiratory Rate 24 H 16 Respiratory Effort Respiratory Depth Respiratory Pattern Blood Pressure 103/59 L Blood Pressure Mean 73 Pulse Ox 99 Oxygen Delivery Method Room Air 03/02/25 03:00 03/02/25 03:10 03/02/25 03:15 Temperature Temperature Source Pulse Rate 66 62 Respiratory Rate 21 H 23 H Respiratory Effort Respiratory Depth Respiratory Pattern Blood Pressure 104/93 H 108/64 Blood Pressure Mean 99 77 Pulse Ox 96 99 Oxygen Delivery Method 03/02/25 03:22 03/02/25 03:30 03/02/25 03:45 Temperature 97.5 F L Temperature Source Oral Pulse Rate 63 56 L Respiratory Rate 18 16 0 L Respiratory Effort Respiratory Depth Respiratory Pattern Blood Pressure 108/64 109/71 121/72 H Blood Pressure Mean 78 83 86 Pulse Ox 99 99 97 Oxygen Delivery Method Room Air 03/02/25 04:00 03/02/25 04:00 03/02/25 04:00 Temperature 97.5 F L Temperature Source Oral Pulse Rate 62 71 66 Respiratory Rate 20 H 20 H Respiratory Effort Respiratory Depth Respiratory Pattern Blood Pressure 115/80 107/68 Blood Pressure Mean 91 81 Pulse Ox 97 99 Oxygen Delivery Method Room Air 03/02/25 04:15 03/02/25 04:30 03/02/25 04:45 Temperature Temperature Source Pulse Rate 64 53 L 66 Respiratory Rate 17 14 18 Respiratory Effort Respiratory Depth Respiratory Pattern Blood Pressure 115/77 115/80 111/58 L Blood Pressure Mean 90 92 74 Pulse Ox 98 100 99 Oxygen Delivery Method 03/02/25 05:00 03/02/25 05:00 Temperature 97.5 F L Temperature Source Oral Pulse Rate 80 63 Respiratory Rate 18 24 H Respiratory Effort Respiratory Depth Respiratory Pattern Blood Pressure 108/70 108/70 Blood Pressure Mean 82 82 Pulse Ox 98 98 Oxygen Delivery Method Room Air Positive well nourished and well developed General Appearance ED: well developed and NAD HEENT Reports moist mucous membranes normocephalic and atraumatic Eyes PERRL and EOMs intact bilaterally Neck full ROM, supple and no JVD Resp normal respiratory effort and clear to auscultation bilaterally Resp Narrative: Diminished but clear throughout and equal. Trachea midline. Conversive in full sentences. Cardio Cardio Narrative: Faint heart sounds, irregular pulse GI non-tender and non-distended Auscultation: normoactive bowel sounds Palpation: soft Back/Spine no CVA tenderness General Back: other FROM Extremity normal to inspection General Extremety ED: Yes edema; Negative for pulses abnormal or tenderness General Extremity: edema bilateral lower extremity Details: mild (Bilateral, symmetric, with changes of chronic stasis dermatitis, no tenderness); Negative for pulses abnormal Neuro oriented x3, CN's II-XII intact bilaterally and no sensory deficits noted Sensorium / Orientation: awake and alert Motor Exam: strength 5/5 throughout Psych mental status grossly normal Skin no rashes or lesions noted and no wounds MDM MDM MDM Narrative Medical decision making narrative: Since patient was examined here in the ED after doing a nebulizer treatment at home, he did not have recurrent dyspnea and felt relatively well. He states he was coughing off and on; he said he would get a little dyspneic and then cough a lot and mobilized some sputum and feel better. His lungs sound clear, his two-view chest x-ray on my interpretation shows no pneumonia, radiology in agreement noting that he has chronic appearing changes at the bases. He has a mild renal deficiency that is not necessarily worse than usual, the rest of his labs are unremarkable including 2 sequential troponin measurements and a proBNP which is just within normal limits for his age, ruling out acute decompensated congestive heart failure in context although he does have a history of cardiomyopathy. I do not think that is related here I think this is more likely to be infection. Since he is not having much in the way of systemic symptoms or fevers, I did not do a COVID or influenza swab given that prevalence of both of those are very low in this area right now. Does not have a history of COPD that he knows of, but he has been successfully treating his dyspnea with albuterol for the past couple days. At this time his vital signs are normal he is not hypoxic and he is relatively asymptomatic except for the cough so I do not think he needs to be admitted, I think reasonable to treat him with a short course of steroids and some antibiotics and have him follow-up with his doctor. He is comfortable with that plan. Lab Data Attestation: I reviewed the patient's lab results. Labs: Laboratory Results - last 24 hr 03/02/25 03/02/25 02:25 04:35 WBC 8.2 RBC 5.06 Hgb 15.4 Hct 46.6 MCV 92.1 MCH 30.4 MCHC 33.0 RDW Std Deviation 45.9 H RDW Coeff of Sasha 13.4 Plt Count 160 MPV 11.0 Immature Gran % (Auto) 0.400 Neut % (Auto) 70.2 H Lymph % (Auto) 17.7 L [place] % (Auto) 7.5 Eos % (Auto) 3.6 Baso % (Auto) 0.6 Absolute Neuts (auto) 5.7 Absolute Lymphs (auto) 1.44 Nucleated RBC % 0 Sodium 139 Potassium 3.8 Chloride 99 Carbon Dioxide 26.3 Anion Gap 14 BUN 27 H Creatinine 1.82 H Estim Creat Clear Calc 41.32 L Est GFR (MDRD) Non-Af 36 L BUN/Creatinine Ratio 15.0 Glucose 156 H Calcium 9.2 Troponin T High Sens 22 Troponin T Hi Sens 2 Hr 20 NT pro BNP II 1729 Radiography Diagnostic Testing: Clinical Impression(s) from Imaging Studies Chest X-Ray 03/02/25 03:05 IMPRESSION: No evidence of acute disease. Reading Location: [id number] Rhythm Strip Rhythm Strip: A-fib Rate: 70 Ectopy: None EKG Initial EKG: Attestation: I personally reviewed and interpreted this EKG as follows: Interpretation: No Acute Injury Pattern and Atrial Fibrillation Prior EKG tracings: available for review Prior: Unchanged Discharge Plan Triage Chief Complaint: Shortness of Breath ED Provider: Jack Joe Dx/Rx/DC Orders Clinical Impression: Acute lower respiratory tract infection, Chest pain, Acute dyspnea Instructions: ED Bronchitis with Wheezing (Adult) Prescriptions: New prednisone 20 mg tablet 40 mg PO DAILY 4 Days Qty: 8 0RF doxycycline monohydrate 100 mg capsule 100 mg PO BID Qty: 14 0RF No Action metoprolol succinate 25 mg tablet extended release 24 hr 25 mg PO BID 30 Days Qty: 120 3RF simvastatin 10 MG tablet 10 mg PO QHS tamsulosin 0.4 MG capsule 0.4 mg PO QHS finasteride 5 MG tablet 5 mg PO QHS donepezil 5 mg tablet 5 mg PO DAILY Januvia 50 mg tablet 50 mg PO DAILY Jardiance 10 mg tablet 10 mg PO DAILY Vyndaqel 20 mg capsule 80 mg PO DAILY Patient Comments: at noon furosemide 40 mg tablet 20 mg PO Q12H Eliquis 5 mg tablet 2.5 mg PO BID Primary Care Provider: Martha Orr Referrals: Martha Orr, [Primary Care Provider] - 3-5 Days if not improving Print Language: Lithuanian Disposition Disposition: Home, Self Care
[2025-03-02 02:54] LABS: Absolute Lymphocyte Count 1.44 X10^3/uL (0.83-4.51); Absolute Neutrophil Count 5.7 X10^3/uL (2.0-7.7); Basophil# 0.05 X10^3/uL; Basophil% 0.6 % (0-1); Eosinophil# 0.29 X10^3/uL; Eosinophils% 3.6 % (0-5); Hematocrit 46.6 % (40-54); Hemoglobin 15.4 g/dL (13.0-16.5); Lymphocyte # 1.44 X10^3/ul (0.83-4.51); Lymphocyte % 17.7 % (19-41); Mean Corpuscular Hgb 30.4 pg (27.0-32.0); Mean Corpuscular Volume 92.1 fL (80-94); Monocyte# 0.61 X10^3/uL; Monocyte% 7.5 % (0-10); NRBC Flagged by Analyzer 0 % (0-5); Neutrophil # 5.73 X10^3/uL (2.7-7.7); Neutrophil % 70.2 % (47-70); Platelet Count 160 K/mm3 (150-450); RBC Distribution Width CV 13.4 % (11.6-14.6); RBC Distribution Width SD 45.9 fl (35.1-43.9); Red Blood Count 5.06 M/mm3 (4.6-6.2); White Blood Count 8.2 K/mm3 (4.4-11.0)
--- NOTE | 2025-03-02 03:05 | RAD_ITS ---
PROCEDURE: CHEST PA AND LATERAL 03/02/2025 REASON FOR EXAM: SOB/CP TECHNIQUE: Frontal and lateral views of the chest. 2 frontal views and lateral, 3 total images COMPARISON: 03/11/2023 FINDINGS: No significant interval change in appearance of the lungs. Chronic appearing changes at the lung bases again noted, not significantly changed. Very small portion of the posterior recess excluded on the lateral view. Otherwise no evidence of pleural effusion identified. The cardiac and mediastinal contours appear within limits. The visualized osseous structures appear within limits. RAD/Chest PA and Lateral IMPRESSION: No evidence of acute disease. Reading Location: [id number]
[2025-03-02 03:10] LABS: Anion Gap 14 (5-15); BUN 27 mg/dL (4-19); Calcium,Total 9.2 mg/dL (7.6-11.0); Carbon Dioxide 26.3 mmol/L (21.0-32.0); Chloride 99 mmol/L (98-108); Creatinine, Serum 1.82 mg/dL (0.70-1.20); EST Glomerular Filtration Rate 36 (>60); Estimated Creatinine Clearance 41.32 ml/min (50-250); Glucose 156 mg/dL (70-99); Potassium 3.8 mmol/L (3.3-5.1); Sodium Level 139 mmol/L (133-145)
[2025-03-02 03:11] LABS: Pro- Brain NATRIURETIC PEPTIDE 1729 pg/mL (<=1800); Troponin T High Sensitivity 22 ng/L (<=22)
[2025-03-02 05:10] LABS: Troponin T High Sens 2 HR 20 ng/L (<=22)
[2025-03-02] MEDS: Doxycycline 100 MG CAPSULE PO (06:23)
[2025-03-02] MEDS: predniSONE 20 MG Tablet 40 MG PO (06:23)
== END 2025-03-02 06:27 | disposition home or self-care (01) ==
PROVIDERS: Emergency Provider Emergency Medicine; PCP Internal Medicine; Visit Provider Emergency Medicine
DX: J22 Unspecified acute lower respiratory infection (principal); E11.22 Type 2 diabetes mellitus with diabetic chronic kidney disease; N18.32 Chronic kidney disease, stage 3b; R07.9 Chest pain, unspecified; I12.9 Hypertensive chronic kidney disease with stage 1 through stage 4 chronic kidney disease, or unspecified chronic kidney disease; R06.00 Dyspnea, unspecified; Z79.01 Long term (current) use of anticoagulants; Z79.899 Other long term (current) drug therapy; Z86.718 Personal history of other venous thrombosis and embolism; Z86.16 Personal history of COVID-19; Z86.711 Personal history of pulmonary embolism
CPT/HCPCS: 71046; 80048; 83880; 84484; 85025; 93005; 99284; A4216

== ENCOUNTER → 2025-06-23 | Outpatient (CLI) | payer MEDICARE, SELFPAY ==
[2025-06-23 13:48] LABS: Anion Gap 13 (5-15); BUN 33 mg/dL (4-19); BUN/Creat Ratio 19.2 RATIO (10-20); Calcium,Total 9.6 mg/dL (7.6-11.0); Carbon Dioxide 27.1 mmol/L (21.0-32.0); Chloride 100 mmol/L (98-108); Glucose 98 mg/dL (70-99); Potassium 4.2 mmol/L (3.3-5.1)
== END | disposition home or self-care (01) ==
LOC: MTLAB 10:46
PROVIDERS: PCP Internal Medicine; Referring Provider Internal Medicine; Visit Provider Internal Medicine
DX: E78.00 Pure hypercholesterolemia, unspecified (principal)
CPT/HCPCS: 36415; 80048